=== PATIENT | male | born 1960 | race Caucasian/White ===

== ENCOUNTER 2019-04-28 10:03 | Inpatient (IN) ==
--- NOTE | 2019-04-28 10:10 | PROVIDER DOCUMENTATION ---
HPI-General Adult - General Stated Complaint: ABSCESS Time Seen by Provider: 04/28/19 10:09 Source: patient Allergies/Adverse Reactions: Patient Allergies Allergy/AdvReac Type Severity Reaction Status Date / Time aprepitant [From Emend] Allergy Unknown Verified 04/28/19 10:29 fosaprepitant [From Emend] Allergy Unknown Verified 04/28/19 10:29 Home Medications: Home Medication List Medication Instructions Recorded Confirmed Last Taken Type Acetaminophen [Tylenol] 2 tab PO BID 04/28/19 04/28/19 04/28/19 08:00 History 650 mg Atorvastatin Calcium 10 mg PO HS 04/28/19 04/28/19 04/27/19 20:00 History 10 mg Buspirone [Buspar] 20 mg PO TID 04/28/19 04/28/19 04/28/19 08:00 History 20 mg Clonazepam [Klonopin] 0.5 mg PO TID 04/28/19 04/28/19 04/28/19 08:00 History 0.5 mg Docusate Sodium [Colace] 100 mg PO BID 04/28/19 04/28/19 04/28/19 08:00 History 100 mg Escitalopram Oxalate 20 mg PO DAILY 04/28/19 04/28/19 04/28/19 08:00 History 20 mg Famotidine 20 mg PO BID 04/28/19 04/28/19 04/28/19 08:00 History 20 mg Furosemide [Lasix] 1 tab PO DAILY PRN 04/28/19 04/28/19 Unknown History Hydrocodone/Acetaminophen [[place] 1 ea PO Q6H PRN PRN 04/28/19 04/28/19 04/28/19 08:00 History 7.5-325 Tablet] 1 tab Levocetirizine Dihydrochloride 5 mg PO DAILY 04/28/19 04/28/19 04/28/19 09:00 History [Xyzal] 5 mg Meloxicam 7.5 mg PO DAILY 04/28/19 04/28/19 04/28/19 09:00 History 7.5 mg Promethazine HCl 12.5 mg PO Q4H PRN PRN 04/28/19 04/28/19 04/08/19 09:13 History 1 tab Quetiapine Fumarate 2 tab PO HS 04/28/19 04/28/1904/27/19 20:00 History 100 mg Quetiapine Fumarate 25 mg PO DAILY 04/28/19 04/28/19 04/28/19 08:00 History 25 mg Sulfamethoxazole/Trimethoprim 1 tab PO Q12HR 04/28/19 04/28/19 04/28/19 08:00 History [Bactrim Ds Tablet] 1 tab Tizanidine HCl 2 mg PO Q6H PRN PRN 04/28/19 04/28/19 04/28/19 08:00 History 2 mg Triamcinolone 0.1% Cr [Kenalog 15 gm TOP BID PRN 04/28/19 04/28/19 04/28/19 09:00 History 0.1% Cream] Valproic Acid [Depakene Liquid] 250 mg PO 4XDAY 04/28/19 04/28/19 04/28/19 08:00 History 250 mg - History of Present Illness -Gen Adult Nature of Presenting Problems: Pt. is 58 yom that presents with c/o abscess to back. He is brought in by family from [facility]. The nurse at [facility] wanted the area biopsied and sent to pathology. I called and spoke with her and let her know we do not do biopsies in the ED. She said that was fine. The patient has no other complaints. Location of Pain/Injury: reports: back. denies: none, head, face, mouth, neck, chest, upper extremity, hand(s), abdomen, pelvis, genitalia, lower extremity, feet, upper body, lower body, generalized, other Pain Radiation: reports: no radiation. denies: arm(s), back, buttocks, chest, epigastric, feet, groin, jaw, flank (L), legs (lower), LLQ, LUQ, neck, periumbilical, flank (R), RLQ, RUQ, shoulder(s), scapula, scrotal, sternal notch, suprapubic, legs (upper), urethral, vaginal, other Quality of Pain: reports: aching. denies: burning, pressure, tightness Severity: reports: moderate. denies: mild, severe Onset/Duration: reports: unsure, gradual Timing: reports: still present. denies: improving, intermittent, getting worse Context/Activities at Onset: reports: none. denies: light activity, moderate activity, vigorous activity, recent emotional stress, recent physical stress, recent trauma history, possible bad food, cold exposure, eating, out of country travel, rest, sleep, sexual activity, other Modifying Factors: improves with: nothing Associated Symptoms: reports: other (Abscess to mid back). denies: denies symptoms, anxiety, arm pain, back/neck pain, chest pain, constipation, cough, diaphoresis, diarrhea, dizziness, EENT symptoms, fatigue, fever/chills, genitourinary problems, headaches, heartburn, joint pain, loss of appetite, malaise, muscle aches, sinus congestion/drainage, nausea, rash, seizure, shortness of breath, sensory/motor loss, pain with inspiration, swelling/mass in abdomen, syncope, vomiting, weakness, trouble walking Similar Symptoms Previously?: Yes Recently seen or treated by another doctor?: No Review of Systems - Adult - REVIEW OF SYSTEMS - ADULT Constitutional: reports: no symptoms reported Eyes: reports: no symptoms reported Ears, Nose, Mouth & Throat: reports: no symptoms reported Cardiovascular: reports: no symptoms reported Respiratory: reports: no symptoms reported Gastrointestinal: reports: no symptoms reported Genitourinary: reports: no symptoms reported Musculoskeletal: reports: no symptoms reported Integumentary: reports: see HPI, skin sores/ulcer. denies: hair loss, rash, skin thickening Neurological: reports: no symptoms reported Psychiatric: reports: no symptoms reported Past History - Adult - PAST MEDICAL HISTORY-ADULT Review of Records: reports: Old Records Reviewed, Nursing Assessment Review, Medications Reviewed, Social history reviewed & non-contributory. - IMMUNIZATION STATUS Childhood Immunizations: See Nurse Assessment Flu Vaccine: See Nurse Assessment - FAMILY HISTORY Family History: reviewed, not pertinent - SOCIAL HISTORY Smoking: denies Physical Exam-General - PHYSICAL EXAM-ADULT Initial Vital Signs Reviewed: Yes - CONSTITUTIONAL General Appearance: alert, mild distress. negative: anxious, obtunded, combative - EYES Eyes: PERRL/EOMI, pink conjunctivae - HEAD, EARS, NOSE, MOUTH & THROAT HENMT: normocephalic/atraumatic, moist mucous membranes - NECK Neck: non-tender, full range of motion, supple, normal inspection - RESPIRATORY Respiratory: lungs clear, normal breath sounds - CARDIOVASCULAR Cardiovascular: normal peripheral pulses, regular rate, rhythm, no edema - GASTROINTESTINAL (ABDOMEN) Abdominal Exam: normal bowel sounds, non tender, soft - LYMPHATIC Lymphatic: no adenopathy - MUSCULOSKELETAL Back Exam: normal inspection, no CVA tenderness Extremity: negative: deformity, erythema, inflammation, swelling, tenderness Peripheral Pulses: radial (R): 2+, radial (L): 2+ - SKIN Integumentary: embolic lesions (There is a large abscess to the mid back. It is approx. 4 inches in diameter with the center being fluctuant and the surrounding area erythemic and indurated.), erythema (There is a large abscess to the mid back. It is approx. 4 inches in diameter with the center being fluctuant and the surrounding area erythemic and indurated.), swelling (There is a large abscess to the mid back. It is approx. 4 inches in diameter with the center being fluctuant and the surrounding area erythemic and indurated.), tenderness (There is a large abscess to the mid back. It is approx. 4 inches in diameter with the center being fluctuant and the surrounding area erythemic and indurated.). negative: cyanosis, decubitus, jaundice, mottled - NEUROLOGIC Neurologic: grossly normal, no motor/sensory deficits - PSYCHIATRIC Psych/Mental Status: normal mood/affect, normal thought content, normal thought process, oriented x 3. negative: anxious, paranoid, tearful Progress - PLAN OF CARE/RESULTS Progress/Plan/Lab Results: Laboratory Tests 04/28/19 04/28/19 04/28/19 10:51 10:51 11:55 WBC 7.68 RBC 3.22 L Hgb 10.0 L Hct 30.4 L MCV 94.4 MCH 31.1 H MCHC 32.9 L RDW Std Deviation 12.7 Plt Count 157 MPV 9.1 Neut % (Auto) 58.9 Lymph % (Auto) 12.4 L Nelson % (Auto) 9.5 H Eos % (Auto) 18.9 H Baso % (Auto) 0.3 Neut # (Auto) 4.53 Lymph # (Auto) 0.95 L Nelson # (Auto) 0.73 H Eos # (Auto) 1.45 H Baso # (Auto) 0.02 Sodium 133 L Potassium 5.4 H Chloride 96 L Carbon Dioxide 20 L Anion Gap 17 BUN 54 H Creatinine 6.1 H BUN/Creatinine Ratio 9 Glucose 97 Calculated Osmolality 281 Calcium 9.4 Total Bilirubin 0.21 AST 7 L ALT < 5 L Alkaline Phosphatase 67 Total Protein 7.0 Albumin 4.0 Globulin 3.0 Albumin/Globulin Ratio 1.3 Plasma Lactate Urine Source CATH Urine Color YELLOW Urine Turbidity CLEAR Urine pH 5.5 Ur Specific [place] 1.020 Urine Protein NEGATIVE Ur Glucose (Stick) NEGATIVE Ur Ketones (Stick) NEGATIVE Urine Blood NEGATIVE Urine Nitrite NEGATIVE Urine Bilirubin NEGATIVE Urobilinogen Dipstick NORMAL Urine Leukocytes NEGATIVE Urine WBC (Auto) 10-20 A Urine RBC (Auto) <10 U Epithel Cells (Auto) <10 Urine Bacteria (Auto) 1+ 04/28/19 12:26 WBC RBC Hgb Hct MCV MCH MCHC RDW Std Deviation Plt Count MPV Neut % (Auto) Lymph % (Auto) Nelson % (Auto) Eos % (Auto) Baso % (Auto) Neut # (Auto) Lymph # (Auto) Nelson # (Auto) Eos # (Auto) Baso # (Auto) Sodium Potassium Chloride Carbon Dioxide Anion Gap BUN Creatinine BUN/Creatinine Ratio Glucose Calculated Osmolality Calcium Total Bilirubin AST ALT Alkaline Phosphatase Total Protein Albumin Globulin Albumin/Globulin Ratio Plasma Lactate 0.7 Urine Source Urine Color Urine Turbidity Urine pH Ur Specific [place] Urine Protein Ur Glucose (Stick) Ur Ketones (Stick) Urine Blood Urine Nitrite Urine Bilirubin Urobilinogen Dipstick Urine Leukocytes Urine WBC (Auto) Urine RBC (Auto) U Epithel Cells (Auto) Urine Bacteria (Auto) Discussed results and plan of care with patient. Patient agrees with plan and verbalizes understanding. Result Diagrams: 04/28/19 10:51 04/28/19 10:51 - CONSULTS/PCP/HOSPITALIST Notification #1 *Consult/PCP/Hospitalist*: Negin Fernandez Time Discussed: 14:09 Reason/Comments: Admission Consult Disposition: Will see in ED, Admit Procedures - INCISION & DRAINAGE Site: Back Abscess Type: Subcutaneous Prepped with: Betadine Anesthetic: 1%, Lidocaine/Xylocaine Volume of Anesthetic (ml's): 3 Blade Size: 11 Packing placed?: Yes Sterile Dressing Applied?: Yes Drainage: Large Amount Departure - Departure Date of Disposition Decision: 04/28/19 Time of Disposition Decision: 12:55 DIAGNOSIS: Abscess Acute on chronic renal failure Qualifiers: Acute renal failure type: unspecified Chronic kidney disease stage: unspecified stage Qualified Code(s): N17.9 - Acute kidney failure, unspecified Anemia Qualifiers: Anemia type: unspecified type Qualified Code(s): D64.9 - Anemia, unspecified Disposition: ADMITTED INPATIENT 09 Certified Medical Emergency: Emergent Condition: Stable Referrals and Follow-Ups: Oscar Rhodes MD [Primary Care Provider] - - Critical Care Note This patient required my direct & personal management of CC.: No Attestation - Physician/ [place] Attestation Patient care was provided by Advanced Practice Provider:: Yes Advanced Practice Provider:: Elia Iqbal Advanced Practice Provider documentation review:: The Mid-level provider documentation, treatment plan and medical decision making was reviewed by the physician who agrees with all treatment and medical decision making by the MLP. The physician spent face to face time with patient:: No Advanced Practice Provider documentation review:: Supervising physician onsite and consulted in the evaluation and care of this patient. The physician did not have a face to face encounter with the patient.
[2019-04-28] MEDS ORDERED: XYLOCAINE-MPF 1% INJ ONE (10:27)
[2019-04-28] MEDS ORDERED: NS 1,000 ML IV ONE ×2 (10:27→15:28)
[2019-04-28 11:31] LABS: BASO# 0.02 X1000 (0.0-0.2); BASO% 0.3 % (0.0-0.8); EOS# 1.45 X1000 (0.0-0.7); EOS% 18.9 % (0.0-10.0); HEMATOCRIT 30.4 % (42.0-52.0); LYMPH# 0.95 X1000 (1.2-3.4); LYMPH% 12.4 % (20.5-51.1); MCH 31.1 PG (27-31); MCHC 32.9 g/dL (33-37); MCV 94.4 FL (81-99); MONO# 0.73 X1000 (0.11-0.59); MONO% 9.5 % (1.7-9.3); MPV 9.1 FL (7.4-10.4); NEUT# 4.53 X1000 (1.4-6.5); NEUT% 58.9 % (42.2-75.2); PLT 157 X1000 (130-400); RBC 3.22 XMIL (4.7-6.1); RDW 12.7 % (11.5-14.5); WBC 7.68 X1000 (4.8-10.8)
[2019-04-28] MEDS ORDERED: VANCOMYCIN 1 GM/NS 1 GM/250 ML IVPB IV ONE (11:35)
[2019-04-28 11:58] LABS: URINE SOURCE CATH
[2019-04-28 12:17] LABS: AGAP 17; ALB/GLOB RATIO 1.3; ALKALINE PHOSPHATASE 67 U/L (32-122); BUN 54 mg/dL (8-22); CALCIUM 9.4 mg/dL (8.8-10.2); CHLORIDE 96 mmol/L (98-107); COSMO 281; CREATININE 6.1 mg/dL (0.7-1.2); GLUCOSE 97 mg/dL (70-104); GOT 7 U/L (10-34); GPT < 5 U/L (10-44); POTASSIUM 5.4 mmol/L (3.5-5.1); SODIUM 133 mmol/L (136-145); TCO2 20 mmol/L (25-35); TOTAL BILIRUBIN 0.21 mg/dL (0.20-1.00)
[2019-04-28] MEDS ORDERED: MORPHINE IV ONE (12:21)
[2019-04-28 12:26] LABS: BILIRUBIN URINE NEGATIVE (NEGATIVE); BLOOD URINE NEGATIVE (NEGATIVE); COLOR YELLOW; GLUCOSE URINE NEGATIVE (NEGATIVE); KETONE URINE NEGATIVE (NEGATIVE); LEUKOCYTES URINE NEGATIVE (NEGATIVE); NITRITE URINE NEGATIVE (NEGATIVE); PH URINE 5.5; PROTEIN URINE NEGATIVE (NEGATIVE); TURBIDITY URINE CLEAR (CLEAR); UR EPITHELIAL CELLS <10 /HPF (<10); URINE BACTERIA 1+ /HPF; URINE RBC <10 /HPF (<10); UROBILINOGEN URINE NORMAL (NORMAL)
--- NOTE | 2019-04-28 14:05 | EKG Report ---
Test Performed on : 04/28/2019 1:52:33 PM Test Reason : elevated K Blood Pressure : / mmHG Vent. Rate : 060 BPM Atrial Rate : 060 BPM P-R Int : 238 ms QRS Dur : 104 ms QT Int : 442 ms P-R-T Axes : 049 -64 069 degrees QTc Int : 442 ms Sinus rhythm. with 1st degree AV block. Left axis deviation Abnormal ECG No previous ECGs available Unconfirmed Result
[2019-04-28] MEDS ORDERED: NS 1,000 ML ONE (14:49)
--- NOTE | 2019-04-28 15:36 | ED EKG INTERP ---
This chart was entered by Cathy Cabrera Scribe, acting as scribe for Valeriy Mcclendon MD. EKG Interpretation - EKG Time of EKG reading by physician:: 14:41 EKG Read and Signed by:: Valeriy Mcclendon EKG Interpretation (*Must complete 3 of following elements*): Abnormal Rate: 60 Rhythm: sinus rhythm with 1st degree AV block [place]: left Comments: early transition; Attestation - Physician/ [place] Attestation Patient care was provided by Advanced Practice Provider:: Yes Advanced Practice Provider:: Elia Iqbal Advanced Practice Provider documentation review:: The Mid-level provider documentation, treatment plan and medical decision making was reviewed by the physician who agrees with all treatment and medical decision making by the MLP. The physician spent face to face time with patient:: No Advanced Practice Provider documentation review:: Supervising physician onsite and consulted in the evaluation and care of this patient. The physician did not have a face to face encounter with the patient. This chart was documented by the indicated scribe, (Cathy Cabrera Scribe) and accurately reflects the services I performed and decisions made by Hakan quinones Kent A., MD, as attested by the provider's signature.
[2019-04-28] MEDS ORDERED: MAXIPIME 1 GM in NS 50 ML IV ONE (15:50)
--- NOTE | 2019-04-28 16:05 | Diag Imaging Result Doc PS360 ---
EXAM: CHEST-1 VIEW HISTORY: dyspnea TECHNIQUE: Single view COMPARISON: None. FINDINGS: The patient is rotated to the right. There is a left-sided portacatheter. No cardiomegaly. There is basilar atelectasis. There may be a small right pleural effusion. No consolidation. Mild vascular prominence. IMPRESSION: Mild central vascular prominence. Follow-up PA and lateral recommended Electronically signed by Tony Mora 04/28/2019 4:03 PM
[2019-04-28 16:13] LABS: ALLEN TEST YES; BLOOD TYPE ARTERIAL; HCO3-(ACT) 20.1 mmoll (20.0-26.0); METHB 1.1 % (0.0-1.5); O2(CT) 11.7 mL/dL (15.0-23.0); PCO2(98.6) 32 mmHg (35-45); SAMPLE BLOOD; SAO2 89.4 % (95.0-100.0); THB 9.6 g/dL (11.5-17.4); pH(98.6) 7.37 (7.35-7.45)
[2019-04-28 16:14] LABS: MODALITY CANNULA
[2019-04-28 16:17] LABS: UR CREAT RANDOM 119.5 mg/dL (14-26); UR PROT RANDOM 13.5 mg/dL
[2019-04-28 16:17] LABS: PO2(98.6) 48 mmHg (60-100)
[2019-04-28 16:18] LABS: O2HB 86.3 % (95.0-99.0)
[2019-04-28] MEDS ORDERED: LEVOPHED 8 MG in D5 1/2 NS 250 ML IV SCH (16:45)
--- NOTE | 2019-04-28 16:54 | Diag Imaging Result Doc PS360 ---
EXAM: US RENAL 2 (RETROPER) COMPLETE HISTORY: ivonne TECHNIQUE: Renal ultrasound COMPARISON: None. FINDINGS: The right kidney measures 8.3 x 5.4 x 4.3 cm. There is a 1.3 cm lower pole cyst. There is cortical thinning. Mild increased renal echotexture. The left kidney measures 10.8 x 5.3 x 5.0 cm. No cortical thinning. The renal pelvis and calyces are dilated. There appears to be an upper pole cyst measuring 3.7 cm. The urinary bladder is overly distended measuring over 16 cm in length. IMPRESSION: [place] distended urinary bladder with dilatation of the left collecting system. Electronically signed by Tony Mora 04/28/2019 4:52 PM
[2019-04-28] MEDS: NS 1,000 ML IV SCH (16:59)
[2019-04-28] MEDS: DUONEB (A & A) INH SCH ×3 (17:00→23:24)
[2019-04-28] MEDS ORDERED: ZOFRAN IV PRN (17:05)
[2019-04-28] MEDS: MORPHINE IV PRN (18:03)
--- NOTE | 2019-04-28 18:20 | Diag Imaging Result Doc PS360 ---
EXAM: CT ABDOMEN/PELVIS W/O CONTRAST HISTORY: possible nephrolithasis TECHNIQUE: CT abdomen and pelvis without contrast COMPARISON: None. FINDINGS: There is bronchial wall thickening and bronchiectasis in the lower lungs with basilar infiltrates. The gallbladder is contracted. No focal hepatic normality identified on this noncontrasted exam. No splenomegaly. No inflammation about the pancreas. Normal adrenal glands. No renal stones. There is mild left hydronephrosis. There is thickening to the wall of urinary bladder. There is a Sanchez catheter within the bladder. No aortic aneurysm. There is stool throughout the colon. No inflammation about the cecum. No abscess. Mild scoliosis with prominent degenerative changes in the lower lumbar spine. IMPRESSION: 1.Left hydronephrosis, but no renal stones 2.Thickening to the wall of urinary bladder which may indicate cystitis 3.Moderate constipation 4.Basilar bronchiectasis, bronchial wall thickening, and likely scarring This exam was performed using automated exposure control, adjustment of mA or kV according to patient size, and/or use of iterative reconstruction technique. Electronically signed by Tony Mora 04/28/2019 6:18 PM
[2019-04-28] MEDS: DEPAKENE LIQUID PO SCH ×2 (19:21→23:23)
--- NOTE | 2019-04-28 21:26 | HISTORY AND PHYSICAL ---
CHIEF COMPLAINT: "I have a spot on my back you need to look at." HISTORY OF PRESENT ILLNESS: This is a 58-year-old gentleman with a history of oropharynx cancer, dementia, hyperlipidemia, and hypertension. He presents to the emergency room from [facility]. According to the chart, [facility] called and spoke to one of the providers in the emergency room, stated that the patient had a spot on his back that they wanted to be biopsied and sent to Pathology. On exam, the patient was found to have an abscess. He underwent an I D in the emergency room, and cultures were obtained and sent to lab. According to the chart, the area on his back is approximately 4 inches in diameter with surrounding erythema and induration. After I D, it was flushed, packed. PAST MEDICAL HISTORY: Dementia, hyperlipidemia, hypertension, oropharynx cancer, bipolar disorder, and depression. PAST SURGICAL HISTORY: Right knee arthroscope and a neck biopsy. SOCIAL HISTORY: He denies alcohol, tobacco, or illicit drug use. He is a resident at an [facility]. ALLERGIES: Reportedly Emend with unknown reaction. HOME MEDICATIONS: A list will be obtained by the nursing staff and once verified, reviewed and restarted as appropriate. REVIEW OF SYSTEMS: Obtained from the patient, with pertinent positives in the HPI. He denied any syncope, dizziness, any chest pain or palpitations, shortness of breath, cough, fever, chills, any nausea, vomiting, diarrhea, any black or bloody vomitus or stools, any hematuria, dysuria, frequency, urgency. PHYSICAL EXAMINATION: GENERAL: This is a very pleasant, 58-year-old gentleman, who is sitting up in the bed, eating, in no distress. VITAL SIGNS: Blood pressure is 114/60, with a heart rate of 61. Respirations are 18. Temperature is 97.8 degrees, with room air saturations 97 to 100. HEENT: Head is normocephalic, atraumatic. Mucous membranes are moist. NECK: Supple with trachea midline. CARDIOVASCULAR: Regular rate and rhythm. S1 and S2 appreciated. He has no lower extremity edema. Peripheral pulses are palpable x4 extremities. PULMONARY: Breath sounds are clear with no increased work of breathing noted. Chest rises and falls symmetric to respiration. GASTROINTESTINAL: Abdomen is soft, nontender, nondistended. Bowel sounds in all 4 quadrants. NEUROLOGIC: He is alert and oriented. SKIN: Warm and dry. He does have an area to his mid back that is status post I D per the ER provider. Dressing is intact. There is some erythema noted. LABORATORY AND DIAGNOSTIC DATA: WBC is 7.6, with hemoglobin 10, hematocrit 30.4, and platelets 157,000. Sodium 133, potassium 5.4, BUN 54, creatinine 6.1, with a glucose of 97. Urinalysis is essentially negative. Chest x-ray reveals mild central vascular prominence. ASSESSMENT AND PLAN: 1. Abscess to the back. Urine culture was obtained in the emergency room. He was given vancomycin. We will change him to Zyvox due to his renal function, add cefepime and Kefzol. Further antibiotics will be culture driven. 2. Acute kidney injury in the setting of chronic kidney disease. He did have creatinine on 11/01/2018 and 12/17/2018, of 1.3 and 1.8 respective. We will obtain urine electrolytes, a renal ultrasound. Consult Dr. Mcgovern. We will hold any renal toxic medications, check a daily renal profile. 3. Hypoxemia. We will continue supplemental oxygen. 4. Hyperkalemia. We will give a dose of Veltassa and trend labs. We will continue with supplemental oxygen. 5. For deep vein thrombosis prophylaxis, we will use heparin. Patient was examined with Dr. Rivera and plan was discussed. Further treatments pending hospital course. Dictated by DARIA Oliva for Paula Rivera MD cc: DARIA Oliva MD I performed a face to face encounter on the patient. I reviewed all labs and imaging on the patient. I agree with the H&P as dictated. [facility]
[2019-04-28] MEDS: HEPARIN SUBQ SCH (23:30)
[2019-04-29] MEDS: MORPHINE IV PRN ×4 (01:13→17:58)
[2019-04-29] MEDS: DUONEB (A & A) INH SCH ×6 (03:32→23:02)
[2019-04-29] MEDS: KLONOPIN PO PRN ×2 (04:28→13:04)
[2019-04-29 05:34] LABS: BASO# 0.03 X1000 (0.0-0.2); BASO% 0.5 % (0.0-0.8); EOS% 14.5 % (0.0-10.0); HEMATOCRIT 32.3 % (42.0-52.0); HEMOGLOBIN 10.4 g/dL (14.0-18.0); LYMPH# 0.47 X1000 (1.2-3.4); LYMPH% 8.5 % (20.5-51.1); MCH 30.5 PG (27-31); MCHC 32.2 g/dL (33-37); MCV 94.7 FL (81-99); MONO# 0.45 X1000 (0.11-0.59); MONO% 8.1 % (1.7-9.3); NEUT# 3.78 X1000 (1.4-6.5); NEUT% 68.4 % (42.2-75.2); PLT 134 X1000 (130-400); RBC 3.41 XMIL (4.7-6.1); RDW 12.6 % (11.5-14.5); WBC 5.53 X1000 (4.8-10.8)
[2019-04-29] MEDS ORDERED: ZYVOX 600 MG/D5W 600 MG/300 ML IVPB IV SCH (07:00)
--- NOTE | 2019-04-29 07:36 | INFECTIOUS DISEASE CONSULT REP ---
DATE: 04/29/2019 CONCLUSION: The patient is status post incision and drainage of a back abscess. On Gram stain, gram-positive cocci were seen from the pus. The patient also appears to have urinary tract infection. RECOMMENDATIONS: I agree with using Zyvox to treat the patient's abscess pending culture results. I have switched the Zyvox from IV to p.o. I have discontinued Ancef. I am going to start the patient on cefepime because it appears he has a urinary tract infection and he has gone into renal failure and possibly some of the renal failure could be due to the patient's urinary tract infection. Some of the side effects of Zyvox and cefepime including rash, diarrhea, hematotoxicity, and neurotoxicity were explained to patient who agrees with treatment. DISCUSSION: The patient tells me approximately 2 weeks ago he developed an abscess on his back. It got bigger and more painful. He came to the emergency room and he was admitted to the hospital. While in the emergency room, the patient had incision and drainage of the abscess. The patient's laboratory studies thus far show a CBC with a white count of 5530, hemoglobin 10.4, and platelet count 134,000. Creatinine is 6.1. GFR is 9. Liver function studies are normal. Urinalysis showed white cells and bacteria. A back abscess Gram stain showed gram-positive cocci. Blood and urine cultures are pending. PAST MEDICAL HISTORY/REVIEW OF SYSTEMS: Eyes and ears: The patient says he sees and hears okay. Neck: His neck he says is stiff and he is in a position where his chin touches his chest. Respiratory: He is not coughing or short of breath currently. Cardiac: He is not having chest pain or palpitations. GI: He is not having nausea, vomiting or diarrhea. : He is not having dysuria or flank pain. Neurologic: The patient can walk only with the aid of a walker. He states that he has a large dorsal kyphosis because he cannot straighten his spine. Integument: No rash. PAST MEDICAL HISTORY: Positive for dementia, hyperlipidemia, hypertension, oropharyngeal cancer, bipolar disorder and depression. PAST SURGICAL HISTORY: Patient has had a right knee arthroscopy and a neck biopsy. SOCIAL HISTORY: The patient is living in an extended care facility now. He told me he stopped smoking cigarettes 6 months ago. He does not drink alcoholic beverages or use illicit drugs. ALLERGIES: The patient is allergic to the Emend. HOME MEDICATIONS: Include atorvastatin, buspirone, Klonopin, Colace, escitalopram, famotidine, furosemide, hydrocodone, Xyzal, meloxicam, promethazine, Quetiapine, Bactrim and Depakene. PHYSICAL EXAMINATION: Vital Signs: Temperature is 98.1 degrees, pulse 118, respirations 18, blood pressure is 146/77. Patient is 6 feet 5 inches tall, weighs 202 pounds. General: This is an ill-appearing middle-aged male. He is in no acute distress. Head/eyes/ears/nose/throat: He can hear my spoken words and see near objects. I did not see any white coating on his tongue. Neck: The patient's neck is bent forward and he said he cannot get it to straighten out. Lungs: Clear to auscultation. Cardiovascular: Heart rate is regular. Back: The patient has a large dorsal kyphosis. He has a large erythematous mass which has a black center. This has been opened and there is some pus that is coming out from the back abscess. Neurologic: The patient is awake. He can move his extremities. There is no tremor. As I mentioned above, he can walk, but only with the aid of a walker. He does not have any tremor. His memory regarding his medical history is decreased. Integument: No rash noted. Thank you for the consult. cc: Jenaro De Dios MD [facility]
[2019-04-29 08:43] LABS: CALCIUM 9.4 mg/dL (8.8-10.2); CREATININE 4.7 mg/dL (0.7-1.2); PHOSPHORUS 3.7 mg/dL (2.7-4.5); POTASSIUM 5.5 mmol/L (3.5-5.1)
[2019-04-29] MEDS ORDERED: KEFZOL 1 GM/D5W 1 GM/50 ML IVPB IV SCH (09:00)
[2019-04-29] MEDS ORDERED: KLONOPIN PO SCH (09:00)
[2019-04-29] MEDS: DEPAKENE LIQUID PO SCH ×4 (12:09→21:11)
[2019-04-29] MEDS: COLACE PO SCH ×2 (12:10→21:11)
[2019-04-29] MEDS: HEPARIN SUBQ SCH ×2 (12:10→21:11)
[2019-04-29] MEDS: DULCOLAX PR SCH (12:11)
[2019-04-29] MEDS: MIRALAX PO SCH ×2 (12:11→21:11)
[2019-04-29] MEDS ORDERED: ALBUTEROL 0.5% INH CONC FOR HYPERKALEMIA INH ONE (12:11)
[2019-04-29] MEDS ORDERED: LOKELMA POWDER PACKET PO ONE (12:12)
[2019-04-29] MEDS ORDERED: MIRALAX PO SCH (12:15)
[2019-04-29] MEDS: MAXIPIME 1 GM in NS 50 ML IV SCH (12:30)
--- NOTE | 2019-04-29 12:34 | PROGRESS NOTE ---
DATE: 04/29/2019 SUBJECTIVE: The patient is resting comfortably in bed. He states that the pain in his back is a little bit better since the I&D yesterday. He has not had a bowel movement in several days. OBJECTIVE: Vital Signs: Temperature 98.7 degrees, blood pressure 127/66, heart rate 98, respirations 22, O2 saturations 98% on 2 L nasal cannula. Intake 1.1 L, output 5.9 L. General: This is a chronically ill-appearing elderly male lying in bed in no acute distress. Neck: The patient has contracture involving the neck. Heart: S1, S2 normal. Regular rate and rhythm. Lungs: Equal air entry bilaterally. No wheezing. No rales. No rhonchi. Abdomen: Positive bowel sounds. Soft, nontender, nondistended. Extremities: No edema, no cyanosis, no calf tenderness. Neurologic: The patient is alert and oriented x4. LABS: White blood cell count 5.5, hemoglobin 10, hematocrit 32, platelets 134,000. Sodium 141, potassium 5.5, chloride 107, CO2 19, BUN 46, creatinine 4.7, glucose 117, albumin 4. ASSESSMENT AND PLAN: 1. Back abscess status post incision and drainage. The patient's antibiotics have been adjusted by Dr. De Dios. We will follow up on the wound culture results. 2. Urinary tract infection. Continue with antibiotic. 3. Acute kidney injury. Multifactorial. The patient has a FENa of 2. He has been on Bactrim since April 23 for his back infection. Also, the patient was noted to have urinary retention on the renal ultrasound. The patient's urine output has improved as well as his BUN and creatinine. We will continue with IV fluids and monitor the patient's response to the current therapy. Nephrology has been consulted. 4. Hyperkalemia. We will treat the potassium and monitor closely. 5. Metabolic acidosis. Continue to monitor closely. 6. History of oropharyngeal cancer. The patient is followed at [facility]. 7. Constipation. The patient has been started on laxative therapy. 8. Bipolar disorder. Continue on valproic acid and BuSpar. 9. Deep vein thrombosis prophylaxis. Continue on heparin. 10. We will consult Physical Therapy. cc: Paula Rivera MD [facility]
[2019-04-29] MEDS: NS 1,000 ML IV SCH ×2 (12:36→22:11)
[2019-04-29] MEDS ORDERED: ZANAFLEX PO PRN (13:28)
--- NOTE | 2019-04-29 13:52 | NEPHROLOGY CONSULTATION ---
DATE: 04/29/2019 REASON FOR CONSULTATION: Acute kidney injury. HISTORY OF PRESENT ILLNESS: Mr. Sheehan is a complicated 58-year-old man with a history of oropharyngeal cancer for which he has been receiving treatment in the past. He also has dementia, physical debilitation, hyperlipidemia, hypertension. He received much of his care in [place] but has recently come to [facility]. There was interest in restarting his chemotherapy but there was a lesion on his back that was concerning for metastasis. He underwent biopsy but found abscess only. He was treated with Bactrim as an outpatient. His back pain became more pronounced and ultimately came to the emergency room for evaluation of this problem. His creatinine was 1.8 back in December though we do not have any intervening data. His evaluation in the emergency room found blood pressure of 71/50 with heart rate 69, respirations of 18. Labs demonstrated hyperkalemia and acute kidney injury. CT abdomen demonstrated left-sided hydronephrosis and urinary retention. He was treated with volume resuscitation and Sanchez catheter which resulted in prompt large volume diuresis. He had 6 L of urine by 8 a.m. today. Sanchez bag has 2 L in it at present. PAST MEDICAL HISTORY: As above. HOME MEDICATIONS: Include atorvastatin, Bactrim, buspirone, clonazepam, escitalopram, famotidine, furosemide, hydrocodone, Xyzal, meloxicam, quetiapine, tizanidine, valproate, docusate, acetaminophen, promethazine. ALLERGIES: Aprepitant and fosaprepitant. SOCIAL HISTORY: As above. FAMILY HISTORY: Noncontributory otherwise. REVIEW OF SYSTEMS: Noncontributory otherwise. PHYSICAL EXAMINATION: Vital Signs: Blood pressure 127/66, heart rate 98, respirations 22. Afebrile. General: He is a frail middle-aged man with kyphosis. No acute distress. Skin: Warm and dry. Conjunctivae are not examined. Oropharynx not examined. Neck: Supple. Neck veins are not visible. Trachea is midline. Heart: PMI nondisplaced. Regular rate and rhythm. No murmurs, rubs, gallops. Lungs: Have equal breath sounds. No crackles or wheezes. Abdomen: Soft, nontender. Bowel sounds present. Extremities: Perhaps 1+ edema. No clubbing or cyanosis. IMPRESSION: Acute kidney injury complicated by hyperkalemia and metabolic acidosis. Excellent urine output with Sanchez catheter placement. Likely multifactorial with obstruction and Bactrim overlying moderate chronic kidney disease stage 3B. His urine had no protein or blood. Creatinine is improved. Continue current treatment with IV fluids, Sanchez catheter. Observe his labs without further intervention. Will follow. cc: Daniel Mcgovern MD
[2019-04-29] MEDS: ZYVOX PO SCH (17:58)
[2019-04-29] MEDS: BUSPAR PO SCH (17:58)
[2019-04-29] MEDS: SEROQUEL PO SCH (21:11)
[2019-04-29] MEDS: LACTULOSE PO SCH (21:11)
[2019-04-30] MEDS: DUONEB (A & A) INH SCH ×6 (03:23→23:25)
[2019-04-30 05:32] LABS: BASO# 0.03 X1000 (0.0-0.2); BASO% 0.8 % (0.0-0.8); EOS% 16.3 % (0.0-10.0); HEMATOCRIT 29.4 % (42.0-52.0); HEMOGLOBIN 9.2 g/dL (14.0-18.0); LYMPH# 0.47 X1000 (1.2-3.4); LYMPH% 12.8 % (20.5-51.1); MCHC 31.3 g/dL (33-37); MCV 95.8 FL (81-99); MONO# 0.41 X1000 (0.11-0.59); MONO% 11.1 % (1.7-9.3); MPV 9.1 FL (7.4-10.4); NEUT# 2.17 X1000 (1.4-6.5); PLT 143 X1000 (130-400); RBC 3.07 XMIL (4.7-6.1); RDW 12.8 % (11.5-14.5); WBC 3.68 X1000 (4.8-10.8)
[2019-04-30] MEDS: NS 1,000 ML IV SCH ×2 (05:49→10:10)
[2019-04-30] MEDS: ZYVOX PO SCH ×2 (05:50→18:04)
[2019-04-30 05:53] LABS: ALBUMIN 3.2 g/dL (3.5-5.0); CALCIUM 9.4 mg/dL (8.8-10.2); CREATININE 3.4 mg/dL (0.7-1.2); PHOSPHORUS 1.9 mg/dL (2.7-4.5); POTASSIUM 5.2 mmol/L (3.5-5.1)
[2019-04-30] MEDS: MORPHINE IV PRN ×4 (06:05→20:15)
[2019-04-30] MEDS ORDERED: SODIUM PHOSPHATE 40 MMOL in NS 250 ML IV ONE (08:28)
--- NOTE | 2019-04-30 09:20 | GENERAL SURGERY CONSULTATION ---
DATE: 04/30/2019 REQUESTING PHYSICIAN: The hospitalist. REASON FOR CONSULTATION: Back abscess. HISTORY OF PRESENT ILLNESS: A 58-year-old gentleman with a history of oropharyngeal cancer, dementia, hyperlipidemia, hypertension, who presented from [facility] for this abscess area. It was drained in the emergency department and cultures were sent. He is at this point, doing okay. He did have the area drained. I removed the packing. There does not seem to be any additional purulence noted. I was asked to weigh an opinion. PAST MEDICAL HISTORY: Dementia, hyperlipidemia, hypertension, oropharynx cancer, bipolar disorder, depression. PAST SURGICAL HISTORY: Includes right knee surgery and neck biopsy. SOCIAL HISTORY: Denies alcohol, tobacco or illicit drugs. He is a resident of [facility]. ALLERGIES: [place]. HOME MEDICATIONS: Full list reviewed and the MAR and reviewed. FAMILY HISTORY: Reviewed with patient, but noncontributory. REVIEW OF SYSTEMS: A full 14 systems reviewed and negative except as specified in HPI. PHYSICAL EXAMINATION: Vital Signs: Patient is currently afebrile. His vital signs stable. General: No acute distress. HEENT: Normocephalic, atraumatic. Pupils equal, round, reactive to light. Mucous membranes moist. Oropharynx benign. Neck: Supple. Trachea midline. Cardiovascular: Regular rate and rhythm. Lungs: Grossly clear. Abdomen: Soft, nontender, nondistended. Extremities: Moves all extremities. Neurologic: Grossly intact. Skin: The area on the mid back noted, previously drained. There is some mild induration and some associated erythema. Pulled the packing. No residual purulence noted. Had the nurse repack the wound. Vascular: All extremities perfused. LABORATORY: White blood cell count 3, hematocrit 29, platelet count 143,000. Remainder of labs reviewed. CT scan independently reviewed and radiology report reviewed. ASSESSMENT AND PLAN: A 58-year-old with back abscess. Back abscess. At this time, await full cultures. Gram stain showed gram-positive cocci, but no growth as of yet. I do not suspect that a biopsy is needed at this point since it looks mostly like an abscess, but if it does not improve we will consider doing a biopsy. At this point agree with antibiotics. We will do Vashe packing once a day to the wound. cc: Иван Sellers MD
[2019-04-30] MEDS: BUSPAR PO SCH ×4 (09:35→20:15)
[2019-04-30] MEDS: DULCOLAX PR SCH (09:36)
[2019-04-30] MEDS: MAXIPIME 1 GM in NS 50 ML IV SCH (09:36)
[2019-04-30] MEDS: DEPAKENE LIQUID PO SCH ×4 (09:36→20:15)
[2019-04-30] MEDS: SEROQUEL PO SCH ×2 (09:36→20:16)
[2019-04-30] MEDS: LACTULOSE PO SCH ×2 (09:36→20:16)
[2019-04-30] MEDS: HEPARIN SUBQ SCH ×2 (09:36→20:15)
[2019-04-30] MEDS: ZYRTEC PO SCH (09:36)
[2019-04-30] MEDS: COLACE PO SCH ×2 (09:36→20:16)
[2019-04-30] MEDS: MIRALAX PO SCH ×2 (09:37→20:16)
--- NOTE | 2019-04-30 13:43 | NEPHROLOGY PROGRESS NOTE ---
DATE: 04/30/2019 SUBJECTIVE: No complaints, no shortness of breath, nausea, vomiting. OBJECTIVE: Vital Signs: Blood pressure 137/62, heart rate 94, respirations 18, afebrile. General: In no acute distress. Skin: Warm and dry. Neck: Neck veins are 6 cm. Heart: Regular. No gallops. Lungs: Equal, no crackles. Abdomen: Soft, bowel sounds present. Extremities: No edema. IMPRESSION: Acute kidney injury. Obstruction, urinary tract infection, Bactrim. Potassium is 5.2 today. Bicarbonate 20. Observe. cc: Daniel Mcgovern MD
--- NOTE | 2019-04-30 17:17 | PROGRESS NOTE ---
DATE: 04/30/2019 SUBJECTIVE: The patient is resting comfortably in bed. He states that he feels much better today. He is eating well and having regular bowel movements. OBJECTIVE: Vital Signs: Temperature 98 degrees, blood pressure 155/83, heart rate 93, respirations 18, O2 saturation 96% on room air. General: This is a chronically ill-appearing elderly male lying in bed in no acute distress. Heart: S1, S2 normal. Tachycardic. Lungs: Clear to auscultation bilaterally. Abdomen: Positive bowel sounds. Soft, nontender, nondistended. Extremities: No edema. Neurologic: The patient is alert and oriented x3. LABS: White blood cell count 3.6, hemoglobin 9.2, hematocrit 29, platelets 143,000. Sodium 140, potassium 5.2, chloride 109, CO2 20, BUN 29, creatinine 3.4, glucose 104, phosphorus 1.9. ASSESSMENT AND PLAN: 1. Back abscess status post incision and drainage. So far the cultures are showing no growth. We will continue with the current antibiotic regimen as directed by Dr. De Dios. General Surgery is also following. 2. Acute kidney injury. Slowly improving. The patient's urine output remains adequate. Continue with IV fluids. Nephrology is following. 3. Hyperkalemia. Stable. We will continue to monitor closely. 4. Metabolic acidosis. Stable. Continue to monitor closely for improvement. 5. Hypophosphatemia. We will replace the patient's phosphorus. 6. History of oropharyngeal cancer. Aware. The patient is followed at [facility]. 7. Bipolar disorder. Continue on valproic acid and Seroquel. 8. Deep vein thrombosis prophylaxis. Continue on heparin. 9. Continue with physical therapy. cc: Paula Rivera MD [facility]
[2019-04-30] MEDS: TYLENOL PO PRN (18:38)
[2019-04-30] MEDS: FLOMAX PO SCH (20:15)
[2019-05-01] MEDS: TYLENOL PO PRN (00:18)
[2019-05-01] MEDS: DUONEB (A & A) INH SCH ×6 (03:32→23:10)
[2019-05-01] MEDS: ZYVOX PO SCH ×2 (05:19→17:09)
[2019-05-01] MEDS: MORPHINE IV PRN ×6 (05:20→22:35)
[2019-05-01 05:46] LABS: HEMATOCRIT 29.4 % (42.0-52.0); HEMOGLOBIN 9.3 g/dL (14.0-18.0); MCH 30.8 PG (27-31); MCHC 31.6 g/dL (33-37); MCV 97.4 FL (81-99); MPV 9.1 FL (7.4-10.4); RBC 3.02 XMIL (4.7-6.1); RDW 13.5 % (11.5-14.5); WBC 3.74 X1000 (4.8-10.8)
[2019-05-01 06:12] LABS: ALBUMIN 3.4 g/dL (3.5-5.0); CALCIUM 9.4 mg/dL (8.8-10.2)
--- NOTE | 2019-05-01 07:15 | GENERAL SURGERY PROGRESS NOTE ---
DATE: 05/01/2019 SUBJECTIVE: The patient had a fever last night but is feeling better since then. OBJECTIVE: Vital Signs: The patient's current temperature is 98.4 degrees, his T-max was 101.5 degrees. Remainder of vital signs have been stable. General Examination: No acute distress. HEENT: Normocephalic, atraumatic. Pupils equal, round, reactive to light. Mucous membranes moist. Oropharynx benign. Neck: Supple. Trachea midline. Cardiovascular: Regular rate and rhythm. Lungs: Grossly clear. Abdomen: Soft, nontender, nondistended. Extremities: Moves all extremities. Neurologic: Grossly intact. Skin: Wound on the back with dressing intact. Does not seem like the erythema has spread. Vascular: All extremities perfused. Laboratory: White blood cell count is 3, hematocrit 29, is relatively stable, although he did come in with a white blood cell count of 7. Remainder of laboratories reviewed. His creatinine has improved. ASSESSMENT/PLAN: A 58-year-old gentleman with a back abscess. Back abscess. At this time, we will continue local wound care. Recommend to continue antibiotics. So far, no growth from his wound cultures but we will continue his Zyvox and Maxipime. Infectious disease is following. cc: Иван Sellers MD
--- NOTE | 2019-05-01 08:15 | INFECTIOUS DISEASE PROGRESS NO ---
DATE: 05/01/2019 PRESENT ILLNESS: The patient has a back abscess, which has been drained. The patient did spike a temperature last night to 102, and the exact cause of the temperature spike is uncertain to me at this time. The patient, both on his renal ultrasound and on his CT scan, shows a left hydronephrosis with a bladder wall that is thick, and the bladder is distended. MEDICATIONS: The patient is on a combination of cefepime and Zyvox. The cefepime dose has been modified because of the patient's renal failure. PHYSICAL EXAMINATION: Vital Signs: Temperature earlier was 102, now it is 98.4, pulse 81, respirations 17, blood pressure 132/85. General: This is an ill-appearing, middle-aged male. He is in no acute distress. HEENT: He can hear my spoken words and see near objects. He has poor oral hygiene. I did not see any white patches in his mouth. Neck: The patient's neck is leaning forward. Thorax: The patient has a large dorsal kyphosis. Also, there is an area that is erythematous and it has been drained, and there is a drain in place in there. Overall, the area on the back that was drained is smaller and less erythematous than I saw it a few days ago. Lungs: Clear to auscultation. Cardiovascular: Heart rate is regular. Abdomen: Soft and nontender. Neurologic: The patient is awake. He can move his extremities. There is no tremor. IMAGING AND LABORATORY DATA: Chest x-ray shows vascular prominence. CT scan of the abdomen and pelvis shows left hydronephrosis, bladder wall thickening, and bibasilar bronchiectasis. Renal ultrasound showed distended bladder and left hydronephrosis also. The patient's CBC shows a white count of 3740, hemoglobin 9.3, and platelet count 109,000. Creatinine is 3. GFR is 22. Urine, blood, and wound cultures are all negative. ASSESSMENT AND PLAN: The patient has a back abscess, which has been drained. My plan is to continue with cefepime and Zyvox, even though the cultures are negative. I have put in a consult for Dr. Da Silva of Urology because of the patient's bronchiectasis and also having a distended bladder, even though a Sanchez catheter is in place. COMORBIDITIES: The patient has dementia, he had oropharyngeal cancer, and he has a large dorsal kyphosis. cc: Jenaro De Dios MD
[2019-05-01] MEDS: MAXIPIME 1 GM in NS 50 ML IV SCH (09:15)
[2019-05-01] MEDS: BUSPAR PO SCH ×3 (09:16→21:52)
[2019-05-01] MEDS: HEPARIN SUBQ SCH (09:16)
[2019-05-01] MEDS: SEROQUEL PO SCH ×2 (09:16→21:52)
[2019-05-01] MEDS: ZYRTEC PO SCH (09:16)
[2019-05-01] MEDS: DEPAKENE LIQUID PO SCH ×4 (09:16→21:53)
[2019-05-01] MEDS: COLACE PO SCH ×2 (09:16→21:52)
[2019-05-01] MEDS: MIRALAX PO SCH ×2 (09:17→21:53)
[2019-05-01] MEDS: DULCOLAX PR SCH (09:17)
[2019-05-01] MEDS: LACTULOSE PO SCH ×2 (09:17→21:53)
[2019-05-01] MEDS: NS 1,000 ML IV SCH ×3 (09:27→13:56)
--- NOTE | 2019-05-01 11:13 | Diag Imaging Result Doc PS360 ---
US RENAL 2 (RETROPER) COMPLETE - 05/01/2019 INDICATION: ivonne/arf, resolution of left hydronephrosis TECHNIQUE: COMPARISON: CT from 04/28/2019 FINDINGS: The urinary bladder is collapsed by a Sanchez catheter. There is some fluid spaces in the left renal collecting system which may indicate moderate hydronephrosis versus several peripelvic cysts. The appearance is stable from the prior CT. The right kidney remains normal. Small right renal cyst measures 1.3 cm. The right kidney measures 10.5 x 4.8 x 5 cm. The left kidney measures 10.1 x 4.7 x 4.6 cm. IMPRESSION: 1. Cystic fluid collections of the left renal collecting system consistent with persistent hydronephrosis versus peripelvic cysts. 2. Better drainage of the urinary bladder. There is nonspecific wall thickening of the urinary bladder which is indeterminate. Follow-up recommended. Electronically signed by Shun White 05/01/2019 11:11 AM
--- NOTE | 2019-05-01 11:40 | Diag Imaging Result Doc PS360 ---
CHEST-1 VIEW - 05/01/2019 INDICATION: dyspnea COMPARISON: 04/28/2019 FINDINGS: Stable left chest port in good position. There is been significant improvement in the bibasilar nonspecific infiltrates. Heart size remain normal. No pneumothorax or pleural effusion. IMPRESSION: Significant improvement from prior. Electronically signed by Shun White 05/01/2019 11:37 AM
--- NOTE | 2019-05-01 14:31 | CONSULTATION ---
DATE OF CONSULTATION: 05/01/2019 REASON FOR CONSULTATION: Acute on chronic kidney disease with left hydronephrosis. HISTORY OF PRESENT ILLNESS: Mr. Sheehan is a 58-year-old with history of oropharyngeal cancer status post radiation and chemotherapy, hypertension, hyperlipidemia, dementia, and physical debilitation, who presents in consultation regarding left hydronephrosis and acute on chronic kidney disease. The patient was brought from [facility] to the emergency room on 04/28/2019 due to concern over a lesion on his back that was concerning for malignancy versus an abscess. The patient was evaluated in the emergency room, and underwent drainage by the ER physician, and had a large amount of drainage return from this. The patient had previously been on Bactrim, and was complaining of back pain. On presentation, the patient's lab showed a creatinine of 6.1 from a baseline in the range of 1.3 to 1.8 in November and December of this year. The patient was hypotensive and was given fluid resuscitation. He underwent a CT scan, which showed left hydronephrosis with evidence of urinary retention, and a catheter was inserted with a large amount of urine return. The patient has made over 13 L of urinary output over the past 3 days. Renal function has slowly improved with creatinine of 3 today from 6.1 on presentation. He denies any bladder discomfort or hematuria. He denies any issues with urination at home. Denies any urgency, frequency, hesitancy, or weak urine stream. The patient states that he has been seen previously by a urologist in [place], Dr. Martinez, for regular PSA checks. The patient moved from [place] to [place]. PAST MEDICAL HISTORY: 1. Dementia. 2. Hyperlipidemia. 3. Hypertension. 4. Oropharyngeal cancer. 5. Bipolar. 6. Depression. PAST SURGICAL HISTORY: 1. Right knee arthroscopy. 2. Neck biopsy. ALLERGIES: 1. Aprepitant 2. Fosaprepitant. HOME MEDICATIONS: 1. Atorvastatin 10 mg p.o. 2. BuSpar 20 mg p.o. t.i.d. 3. Klonopin 0.5 mg p.o. t.i.d. 4. Colace 100 mg p.o. b.i.d. 5. Escitalopram 20 mg p.o. daily. 6. Famotidine 20 mg p.o. b.i.d. 7. Lasix 1 tablet daily. 8. [place] 7.5/325 mg every 6 hours as needed for pain. 9. Xyzal 5 mg p.o. daily. 10. Meloxicam 7.5 mg p.o. daily. 11. Promethazine 12.5 mg p.o. every 4 hours as needed. 12. Seroquel 25 mg p.o. daily. 13. Bactrim 1 tablet p.o. every 12 hours. 14. Tizanidine 10 mg p.o. every 6 hours. 15. Valproic acid 250 mg p.o. 4 times daily. SOCIAL HISTORY: Denies alcohol, tobacco, or illicit drug use. REVIEW OF SYSTEMS: A 12-point review of systems was performed pertinent positive and negative in HPI. PHYSICAL EXAMINATION: Vital Signs: Temperature 97.9 degrees, heart rate 80, blood pressure 120/71, oxygen saturation 94% on room air. General: No acute distress. Resting comfortably in bed. Alert and oriented x3. HEENT: Normocephalic, atraumatic. Pupils equal, round, reactive to light. Mucous membranes moist. Neck: Trachea midline with no palpable masses. Respiratory: Good respiratory effort without audible wheezing or rales. Cardiovascular: Regular rate and rhythm. No evidence of lower extremity edema. GI: Abdomen is soft, nontender, nondistended. No palpable masses. : No suprapubic tenderness. No CVA tenderness. Urethral catheter in place, draining clear-yellow urine. Normal phallus with orthotopic meatus. Bilateral testicles palpated without asymmetry. Digital rectal exam deferred until surgery. Neurologic: Grossly motor and sensory intact. Skin: No skin lesions or rashes. The patient has a dressing overlying his back at the site of incision and drainage in the emergency room. Musculoskeletal: The patient has evidence of kyphosis with normal appearance of extremities. LABORATORY DATA: White blood cell count 5.5, hemoglobin 10.4, hematocrit 32.3, platelets 134,000. Sodium 141, potassium 5.5, chloride 107, bicarb 19, BUN 46, creatinine 3.0, glucose 90. Urine culture: No growth. IMAGING: The patient had a CT of the abdomen and pelvis performed on 04/28/2019, which shows evidence of left hydronephrosis all the way to the bladder, with slightly distended bladder, with thickened cha proximally. It seemed to be small. No evidence of obstructing lesions or lymphadenopathy. ASSESSMENT AND PLAN: Mr. Sheehan is a 58-year-old with history of oropharyngeal cancer, dementia, hyperlipidemia, hypertension, depression, and bipolar disorder, who presents in consultation regarding left hydronephrosis and acute on chronic kidney disease. The patient's baseline renal function appears to be somewhere between 1.3 and 1.8 from earlier this summer. The patient's creatinine on presentation was 6.1. Creatinine today is 3.0. The patient's creatinine has slowly down trended. Repeated a renal ultrasound today, which shows residual hydronephrosis with the bladder decompressed. Due to these findings, I recommend cystoscopy and bilateral retrograde pyelograms. Consideration of left ureteral stent tomorrow in the operating room. I discussed with the patient previously that we will make her nothing by mouth at midnight in preparation for surgery. The patient has been seen previously by a urologist in [place]. Denies any voiding complaints at home. Has indwelling catheter in place. I plan to remove that when renal function improves. Patient followed by Nephrology as well as Infectious Disease regarding back infection and acute on chronic kidney disease. Will continue to monitor from a urologic standpoint. Please call with questions or concerns. cc: MD KRISTIE Valdez
--- NOTE | 2019-05-01 15:57 | PROGRESS NOTE ---
DATE: 05/01/2019 SUBJECTIVE: The patient is resting comfortably. He complains of a productive cough. OBJECTIVE: Vital signs: Temperature 98.2 degrees, blood pressure 136/80, heart rate 70, respirations 20, O2 saturation 98% on room air. General: This is a chronically ill-appearing elderly male lying in bed in no acute distress. Heart: S1, S2 normal. Regular rate and rhythm. Lungs: Coarse breath sounds bilaterally. Abdomen: Positive bowel sounds. Soft, nontender, nondistended. Extremities: No edema, no cyanosis. Neuro: The patient is alert and oriented x3. LABS: White blood cell count 3.7, hemoglobin 9.3, hematocrit 29, platelets 109,000. Sodium 139, potassium 5, chloride 108, CO2 18, BUN 22, creatinine 3, albumin 3.4. Chest x-ray shows improvement from prior. ASSESSMENT AND PLAN: 1. Back abscess status post incision and drainage. The wound culture revealed no growth. Continue with antibiotic therapy as directed by Dr. De Dios. General Surgery is following. 2. Acute kidney injury. Slowly improving. Continue to monitor closely for improvement. 3. Metabolic acidosis. Stable. 4. History of oropharyngeal cancer. Aware. 5. Moderate left hydronephrosis. The patient is scheduled for cystoscopy tomorrow. 6. Continue with physical therapy. cc: Paula Rivera MD [facility]
[2019-05-01] MEDS: FLOMAX PO SCH (21:52)
[2019-05-02] MEDS: NS 1,000 ML IV SCH ×2 (00:37→13:56)
[2019-05-02] MEDS: DUONEB (A & A) INH SCH ×6 (03:32→23:35)
[2019-05-02 05:32] LABS: HEMATOCRIT 32.8 % (42.0-52.0); HEMOGLOBIN 10.5 g/dL (14.0-18.0); MCV 96.8 FL (81-99); MPV 8.6 FL (7.4-10.4); RBC 3.39 XMIL (4.7-6.1); RDW 13.3 % (11.5-14.5); WBC 4.17 X1000 (4.8-10.8)
[2019-05-02] MEDS: ZYVOX PO SCH ×3 (05:38→17:12)
[2019-05-02 06:02] LABS: ALBUMIN 3.5 g/dL (3.5-5.0); CALCIUM 9.4 mg/dL (8.8-10.2); CREATININE 2.6 mg/dL (0.7-1.2); PHOSPHORUS 3.4 mg/dL (2.7-4.5); POTASSIUM 5.8 mmol/L (3.5-5.1)
[2019-05-02] MEDS ORDERED: ALBUTEROL 0.5% INH CONC FOR HYPERKALEMIA INH ONE (06:38)
[2019-05-02] MEDS ORDERED: D50W SYRINGE IV ONE (06:39)
[2019-05-02] MEDS ORDERED: HUMULIN R IV ONE (06:39)
--- NOTE | 2019-05-02 07:13 | GENERAL SURGERY PROGRESS NOTE ---
DATE: 05/02/2019 SUBJECTIVE: Patient seems to be doing okay. OBJECTIVE: Vital Signs: Patient is currently afebrile. His vital signs are stable. General: No acute distress. HEENT: Normocephalic, atraumatic. Pupils equal, round, reactive to light. Mucous membranes moist. Oropharynx benign. Neck: Supple. Trachea midline. Cardiovascular: Regular rate and rhythm. Lungs: Grossly clear. Abdomen: Soft, nontender, nondistended. Extremities: Moves all extremities. Neurologic: Grossly intact. Skin: Wound noted to the back overall seems to be improved. There is an area of eschar but I do not think it needs to be actively removed. The area seems a whole lot less erythematous and less indurated. Vascular: All extremities perfused. LABORATORY: White blood cell count 4, hematocrit 32. Remainder of labs reviewed. Of note, his potassium is 5.8. ASSESSMENT AND PLAN: A 58-year-old gentleman with back abscess. Back abscess. At this time, continue local wound care. No need for any further debridement at this point. It seems to be improving. We will continue antibiotics per Infectious Disease. His potassium has gone up. We will defer to Nephrology. cc: Иван Sellers MD
--- NOTE | 2019-05-02 07:14 | INFECTIOUS DISEASE PROGRESS NO ---
DATE: 05/02/2019 PRESENT ILLNESS: The patient has a back abscess, which has been drained. A day ago he had an elevated temperature, but last night and this morning he has not had any fever. I should add that the patient's abscess continually is getting better. MEDICATIONS: The patient is on a combination of cefepime and Zyvox. PHYSICAL EXAMINATION: Vital Signs: Temperature is 98.6 degrees, pulse 84, respirations 17, blood pressure 127/65. General: This is an ill-appearing middle-aged male. He is in no acute distress. Head/Eyes/Ears/Nose/Throat: He can hear my spoken words and see near objects. I did not notice any white coating of his tongue. Neck: The patient continually has neck forward. Back: The patient has a large dorsal kyphosis. The patient's abscess is getting continually smaller and also it is no longer erythematous. It is more pink in color, and finally, I did not notice any purulent drainage. Lungs: Clear to auscultation. Cardiovascular: Regular heart rate. Abdomen: Soft and nontender. Neurologic: The patient is alert. He can move his extremities. He carries on a coherent conversation. LABORATORY AND RADIOLOGY: The patient's CBC shows a white count of 4170, hemoglobin 10.5, platelet count 131,000. Creatinine is 3, GFR is 22. Repeat blood cultures are sterile. ASSESSMENT AND PLAN: Regarding the patient's back abscess, I plan on continuing with the current antibiotics. I think the patient could very soon go home on oral antibiotics. I appreciate Dr. Da Silva seeing the patient regarding the patient's hydronephrosis and also urinary retention. COMORBIDITIES: Include the patient has dementia. He also had oropharyngeal cancer. He has a large dorsal kyphosis, and he has developed renal failure. cc: Jenaro De Dios MD
--- NOTE | 2019-05-02 07:24 | PROGRESS NOTE ---
DATE: 05/02/2019 SUBJECTIVE: No acute events overnight. Patient was made n.p.o. in preparation for possible surgery today. The patient had a renal ultrasound yesterday which showed a small amount of hydronephrosis in the left kidney with decompressed bladder. The patient denies any hematuria, dysuria, nausea, or vomiting. The patient feels that his back wound is improving. Sanchez catheter is draining well. PHYSICAL EXAMINATION: Vital Signs: Temperature 98.6, heart rate 84, blood pressure 127/67, oxygenation saturation 92% on room air. General: No acute distress. Resting comfortably in bed. Alert and oriented x3. Respiratory: Good respiratory effort without audible wheezing or rales. Abdomen: Soft, nontender, nondistended. Genitourinary: Urethral catheter in place with orthotopic meatus. The catheter is draining clear yellow urine. Skin: The patient's back lesion is covered with a dressing. The patient has evidence of kyphosis. LABS: White blood cell count 4.2, hemoglobin 10.5, hematocrit 32.8, platelets 131,000. Sodium 138, potassium 5.8, chloride 107, bicarb 19, BUN 24, creatinine 2.6, glucose 89. ASSESSMENT AND PLAN: Mr. Sheehan is a 58-year-old with hyperlipidemia, hypertension, history of oropharyngeal cancer, bipolar, depression, and dementia, who presents in consultation regarding left hydronephrosis. Patient had a renal ultrasound performed which showed persistent left hydronephrosis. The patient's renal function has now returned to normal with a creatinine of 2.6. The patient's creatinine yesterday was 3.0. Due to persistently elevated creatinine and hydronephrosis, I recommend cystoscopy with bilateral retrograde pyelograms, and consideration for left ureteral stent placement. We will plan to do this later today in the operating room. I discussed this at length with the patient and his power of general duty nurse this morning, who are in agreement. Risks, benefits, and alternatives of procedure were discussed with patient and his power of general duty nurse this morning. cc: Yimi Da Silva MD [facility]
[2019-05-02] MEDS: DULCOLAX PR SCH (08:17)
[2019-05-02] MEDS: MORPHINE IV PRN ×3 (08:18→21:02)
[2019-05-02] MEDS: MAXIPIME 1 GM in NS 50 ML IV SCH (08:20)
[2019-05-02] MEDS: DEPAKENE LIQUID PO SCH ×4 (08:24→20:59)
[2019-05-02] MEDS: ZYRTEC PO SCH (08:24)
[2019-05-02] MEDS: MIRALAX PO SCH ×2 (08:24→20:59)
[2019-05-02] MEDS: SEROQUEL PO SCH ×3 (08:24→20:59)
[2019-05-02] MEDS: LACTULOSE PO SCH ×2 (08:24→20:59)
[2019-05-02] MEDS: COLACE PO SCH ×3 (08:25→20:59)
[2019-05-02] MEDS: BUSPAR PO SCH ×4 (08:25→23:00)
--- NOTE | 2019-05-02 12:53 | PROGRESS NOTE ---
DATE: 05/02/2019 Mr. Yosef Sheehan is going to surgery for a urology procedure. He has some skin necrosis overlying this previous back abscess. While in surgery, I will debride that eschar and be sure that all purulence is drained from this soft tissue infection midback. I have discussed this procedure in detail with him and he wants to proceed. cc: Tracee Arias MD
[2019-05-02] MEDS ORDERED: DIPRIVAN 1% ONE (13:56)
[2019-05-02] MEDS ORDERED: XYLOCAINE-MPF 2% ONE (13:57)
[2019-05-02] MEDS ORDERED: DUONEB (A & A) INH ONE (14:19)
--- NOTE | 2019-05-02 14:43 | PROVIDER PROGRESS NOTE ---
Progress Note Subjective: Pt voices being thirsty but is NPO for upcoming renal stent placement. Denies any other uremic systems. Objective: temperature 98.6, pulse 84, respirations 17, blood pressure 127/65, 02 sat 92% on room air General: white male lying in bed in no acute distress. HEENT: normocephalic, atraumatic, pupils equal and reactive. Mucous membranes dry. Skin: warm and dry. Back Dressing covered. Neck: Neck is in a forward position due to kyphosis. No JVD observed. Cardiovascular: S1S2 regular rate and rhythm. No murmur or gallop. Respiratory: clear with equal air entry. Abdomen: protruding, nontender, bowel sounds active. : non inspected, yuen in place with clear yellow urine Extremities: no edema, clubbing, or cyanosis. Neurological: alert and oriented to person place and time Labs: Wbc 4.17, hemoglobin 10.5, hematocrit 32.8, platelet count 131, sodium 138, potassium 5.8, chloride 107, carbon dioxide 19, BUN 24, creatinine 2.6. Intake 1225, output 3350. Impression: Acute kidney injury from left hydronephrosis. Left ureteral stent placement today. We will monitor. Blood pressure. In target. Volume status. Euvolemic on exam. Anemia. Low but stable, does not meet transfusion criteria. Electrolytes and acid base balance. Hyperkalemia. Treated with albuterol, D5, and insulin. Nutrition. Adequate. Ambulation. Up with PT. Medication review. No changes.
[2019-05-02] MEDS ORDERED: FENTANYL ONE (14:47)
[2019-05-02] MEDS: DILAUDID ONE ×2 (15:54→15:57)
--- NOTE | 2019-05-02 17:28 | PROGRESS NOTE ---
DATE: 05/02/2019 SUBJECTIVE: The patient is resting comfortably in bed. He is awaiting a urologic procedure to be done today. OBJECTIVE: Vital Signs: Temperature 98.6 degrees blood pressure 108/75, heart rate 89, respirations 21, O2 saturation 98% on room air. General: This is an elderly male lying in bed in no acute distress. Heart: S1, S2 normal. Regular rate and rhythm. Lungs: Clear to auscultation bilaterally. Abdomen: Positive bowel sounds. Soft, nontender, nondistended. Extremities: No edema, no cyanosis. Neurologic: The patient is alert and oriented x4. LABS: White blood cell count 4.1, hemoglobin 10, hematocrit 32, platelets 131,000. Sodium 138, potassium 5.8, chloride 107, CO2 19, BUN 24, creatinine 2.6, glucose 89. ASSESSMENT AND PLAN: 1. Back abscess status post incision and drainage. Continue with antibiotic therapy and wound care. Dr. De Dios and General Surgery are following. 2. Acute kidney injury secondary to bactrim usage and urinary obstruction. The patient's urine output remains adequate and the BUN and creatinine continue to improve. Continue on IV fluid and bladder decompression. 3. Left hydronephrosis. The patient is scheduled to undergo cystoscopy with ureteral stent placement. 4. Metabolic acidosis. Stable. 5. History of oropharyngeal cancer. Aware. 6. Hyperkalemia. We will treat the patient's potassium. We will repeat a potassium level this evening. 7. Bipolar disorder. Continue on depakene. 8. Continue with physical therapy. cc: Paula Rivera MD MTDD
--- NOTE | 2019-05-02 19:08 | OPERATIVE NOTE ---
PROCEDURE DATE: 05/02/2019 PREOPERATIVE DIAGNOSES: 1. Left hydronephrosis. 2. Bladder wall thickening. POSTOPERATIVE DIAGNOSES: 1. Left hydronephrosis. 2. Bladder wall thickening. 3. Bullous changes to the bladder. 4. Left ureteral stricture. SURGEON: Yimi Da Silva MD [facility] SPECIALIST: None. COMPLICATIONS: None. PROCEDURES PERFORMED: 1. Cystoscopy with bilateral retrograde pyelograms. 2. Left ureteroscopy. 3. Left ureteral stent placement. 4. Bladder biopsy and fulguration of bleeding ANESTHESIA: LMA. DRAINS: An 18-Greek coude catheter. SPECIMENS REMOVED: Bladder biopsies x2, 1 biopsy from the left lateral wall and two biopsies from right lateral wall. OPERATIVE FINDINGS: The patient had a normal urethra. No stricture disease or papillary lesions. Once inside the posterior urethra patient's prostate was enlarged and slightly high-riding. Once inside the bladder there was a small median lobe as well as significant trabeculation, cellules, and small wide mouth diverticulum in the left portion of the bladder. Both orifices were visualized. Some bullous changes seen in the posterior wall of the bladder, most prominent on the right lateral wall. The diverticulum was evaluated with no papillary lesions seen. I performed retrograde pyelograms. The left side showed a very dilated collecting system starting very close to the bladder with inability to get contrast past into the collecting system itself. Right sided retrograde pyelogram was performed which showed a delicate collecting system with no evidence of obstruction and good drainage on postdrainage film. Performed left ureteroscopy and was able to see a small stricture distally right at entering to the bladder likely in the intravesical ureter, likely related to patient's significant trabeculations and cellules throughout the bladder. I was able to advance the ureteroscope past this and performed retrograde pyelogram through the scope, which outlined a very hydronephrotic collecting system down to this transition point near the bladder. I was able to place a left ureteral stent with good drainage through and around the stent. The patient underwent bladder biopsies x3 of the bullous changes in the posterior wall of the bladder. These areas were fulgurated and good hemostasis was performed within the procedure. INDICATION FOR PROCEDURE: Mr. Sheehan is a 58-year-old who presented to the hospital with a lesion on his back that was biopsied and found to be an abscess. The patient's renal function at that time was elevated at 6. He was admitted for observation. He had a CT scan which showed left hydronephrosis as well as distended bladder even with indwelling catheter in place. The patient underwent repeat ultrasound yesterday which showed residual hydronephrosis and a decompressed bladder. I talked with him and I recommended cystoscopy evaluation of the bladder as well as bilateral retrograde pyelograms and possible left ureteral stent placement. Risks, benefits, alternatives of procedure discussed with the patient and the patient elected to proceed. DESCRIPTION OF PROCEDURE: After informed consent was obtained, the patient was brought to the operating room placed on the operating table in supine position. The patient had received antibiotics on the floor and underwent LMA placement. The patient was prepped and draped in usual sterile fashion. A preoperative time-out was performed with all parties in agreement including anesthesia, surgical, nursing staff. At which point I inserted a 21-Greek cystourethroscope through the urethra showing normal caliber urethra, without stricture disease or papillary lesions. Once in the posterior urethra patient's prostate was evaluated and slightly enlarged with a small median lob. Once inside of the bladder, the entirety of the bladder was inspected with some bullous changes seen on the posterior wall of the bladder. Hard to tell if these were papillary changes versus true bullous changes. Both ureteral orifices visualized with efflux of clear yellow urine. The patient had multiple trabeculations and cellules throughout the bladder, most prominent on the left side of the bladder with several diverticulum seen. Each of these was evaluated with our camera and showed no evidence of any papillary lesions or erythema. The patient's bladder was cycled multiple times and there were several erythematous areas, likely related to catheter trauma on the lower portion of the posterior wall. Once the entirety of the bladder was inspected and each of the diverticulum evaluated, opening catheter was then passed through the scope, flushed of all bubbles, and the left ureteral orifice cannulized and injected with Omnipaque. This showed a very hydronephrotic ureter seemed to transition at the bladder itself. Could not get any contrast past the 1st 3-4 cm segment of the ureter itself. Open ended catheter was removed and minimal drainage was seen from the distal ureter. Retrograde pyelogram was performed on the right side which outlined a normal collecting system. No evidence of any filling defects or hydronephrosis. Good drainage was seen on postdrainage film with minimal retained contrast seen. A decision made to perform a left ureteroscopy, so a wire was passed through the open-ended catheter up into the left ureteral orifice and into the kidney itself. A wire was left in place and the scope and the ureteral catheter were removed. At which point a semi- rigid ureteroscope was advanced through the urethra and into the bladder. I was able to cannulate the left ureteral orifice easily and advanced to a narrowing within the intramural portion of the ureter. I was able to advance the ureteroscope past this and it was seen to be quite hydronephrotic with hydroureter proximal to this. Retrograde pyelogram was then performed which outlined distal obstruction. No obvious tumors or external compression was seen. The wire was left in place and the ureteroscope was slowly withdrawn with no significant ureteral trauma. Wire was left in place and back-loaded through the cystourethroscope and a 6 x 28 cm stent was advanced over the wire with good curl within the kidney, endoscopically visualized in the bladder. Good drainage was seen through and around the stent. The system slowly decompressed. It was quite hydronephrotic due to injection of the Omnipaque. Once the stent was placed, attention was placed to performing bladder biopsies. Several bullous areas were seen on the posterior wall of the bladder and each of these were biopsied. 1 biopsy on the left side laterally and 2 on the posterior lateral wall of the bladder. Each of these areas were then fulgurated and good cauterization was seen. No active bleeding was seen after multiple cycling of the bladder. The patient's bladder was left full and an 18-Greek coude catheter was advanced through the urethra into the bladder. Irrigant was clear yellow to light pink. A StatLock was then placed. Dr. Arias came in to preform incision and debridement of patient's back wound. Please see separately dictated operative note. Patient was awoken and was taken to recovery in stable condition. cc: Yimi Da Silva MD [facility]
--- NOTE | 2019-05-02 19:26 | OPERATIVE NOTE ---
PROCEDURE DATE: 05/02/2019 PREOPERATIVE DIAGNOSIS: Soft tissue abscess midback. POSTOPERATIVE DIAGNOSIS: Soft tissue abscess midback. PRINCIPAL PROCEDURE: Debridement of skin, subcutaneous tissue and muscle, abscess cavity midback. SURGEON: Tracee Arias MD. ANESTHESIA: General. ESTIMATED BLOOD LOSS: 10 mL. DRAINS: None. INDICATIONS: Mr. Yosef Sheehan is a 58-year-old white male who was admitted on 04/28/2019. He underwent a limited incision and drainage of soft tissue abscess midback. He has been hospitalized on IV antibiotics. On exam today he had an eschar involving the skin, subcutaneous tissue of this abscess area and debridement was recommended because he was already coming to surgery for a urologic procedure. FINDINGS: There was no purulence but I debrided skin, subcutaneous tissue and muscle in this area involving the abscess cavity. All necrotic tissue was removed and I thoroughly irrigated the area and packed it with iodoform gauze. DESCRIPTION OF PROCEDURE: The patient had already completed a urologic procedure by Dr. Da Silva. We placed him in the left lateral decubitus position and this area of his midback was prepped and draped in a sterile field. I used forceps and a 15 blade scalpel to debride the eschar which was full-thickness skin, subcutaneous tissue. That got me down to the abscess cavity were had to debride some necrotic tissue which included skin, subcutaneous tissue and muscle. I debrided it with forceps and scissors in addition to forceps and a 15 blade scalpel. We thoroughly irrigated the wound and then packed it open with iodoform gauze followed by dry dressing. Plans are for him to go the recovery room and then return to his room on the floor. He tolerated the procedure well. cc: Tracee Arias MD
[2019-05-02] MEDS ORDERED: LEVSIN PO PRN (19:55)
[2019-05-02] MEDS: FLOMAX PO SCH (20:59)
[2019-05-02] MEDS: KLONOPIN PO PRN (20:59)
[2019-05-02] MEDS: HEPARIN SUBQ SCH (23:00)
[2019-05-03] MEDS: LOKELMA POWDER PACKET PO SCH ×3 (00:12→23:23)
[2019-05-03] MEDS ORDERED: ALBUTEROL 0.5% INH CONC FOR HYPERKALEMIA INH ONE ×2 (01:59→06:30)
[2019-05-03] MEDS ORDERED: HUMULIN R IV ONE ×2 (01:59→06:30)
[2019-05-03] MEDS ORDERED: D50W SYRINGE IV ONE ×2 (02:00→06:30)
[2019-05-03] MEDS: DUONEB (A & A) INH SCH ×4 (02:34→15:35)
[2019-05-03 05:19] LABS: HEMATOCRIT 32.1 % (42.0-52.0); MCH 30.6 PG (27-31); MCHC 31.2 g/dL (33-37); MCV 98.2 FL (81-99); MPV 8.8 FL (7.4-10.4); RBC 3.27 XMIL (4.7-6.1); RDW 13.2 % (11.5-14.5); WBC 3.71 X1000 (4.8-10.8)
[2019-05-03 05:36] LABS: ALBUMIN 3.5 g/dL (3.5-5.0); CREATININE 2.3 mg/dL (0.7-1.2); PHOSPHORUS 3.2 mg/dL (2.7-4.5); POTASSIUM 4.8 mmol/L (3.5-5.1)
[2019-05-03] MEDS: MORPHINE IV PRN ×3 (05:57→16:54)
[2019-05-03] MEDS: NS 1,000 ML IV SCH (06:03)
[2019-05-03] MEDS: ZYVOX PO SCH ×2 (06:17→17:56)
[2019-05-03] MEDS ORDERED: D50W SYRINGE IV PRN (06:30)
--- NOTE | 2019-05-03 07:21 | PROGRESS NOTE ---
DATE: 05/03/2019 SUBJECTIVE: The patient had some low blood pressures overnight in the 90s. The patient was also found to have hyperkalemia postoperatively, and had treatment of his hyperkalemia. The patient is postop day 1 from cystoscopy, bladder biopsy, bilateral retrograde pyelograms, left ureteroscopy, left ureteral stent placement. By General Surgery, the patient underwent debridement of his back wound. Overall, the patient is doing well this morning. His catheter has been draining well with clear-yellow urine. He has occasional frequency and spasms of the bladder. The patient is on Levsin, which seems to be helping. Denies any significant flank or abdominal pain. OBJECTIVE: Vital Signs: Temperature 97.9 degrees, heart rate 96, blood pressure 104/61, oxygen saturation 95% on room air. General: No acute distress. Resting comfortably in bed. Alert and oriented x3. Respiratory: Good respiratory effort without audible wheezing or rales. Abdomen: Soft, nontender, nondistended. No suprapubic tenderness. No CVA tenderness. : The patient has urethral catheter in place, draining clear-yellow urine. Musculoskeletal: Evidence of neck contracture. LABORATORY DATA: White blood cell count 3.7, hemoglobin 10.0, hematocrit 32.1, platelets 127,000. Sodium 131, potassium 4.8, chloride 101, bicarb 19, BUN 28, creatinine 2.3, glucose 146. ASSESSMENT AND PLAN: Mr. Sheehan is a 58-year-old with hyperlipidemia, hypertension, history of oropharyngeal cancer, bipolar depression, and dementia, who presents in consultation regarding left hydronephrosis. The patient was taken to the operating room yesterday for cystoscopy, bilateral retrograde pyelograms, left ureteroscopy, bladder biopsies, and placement of left ureteral stent. The patient overall seems to be doing well. He is having some spasms in his bladder, likely from the biopsies as well as placement of the stent. The patient's renal function continues to improve. Creatinine 2.3 from 2.6 yesterday. He is making good urinary output. He had an episode of hypotension overnight. Uncertain what drove this. The patient did receive medications for hyperkalemia, which may have decreased his blood pressure some. Blood pressure seems to be responding. Will continue on Levsin and Flomax to assist with discomfort from the stent. Will keep indwelling catheter in at least another 2 days, and monitor downtrending of his creatinine. Likely can be removed prior to discharge. Continue on IV antibiotics for a wound per General Surgery. Will continue to monitor from a urologic standpoint. Please call with questions or concerns. cc: Yimi Da Silva MD MTDMoody
--- NOTE | 2019-05-03 07:32 | INFECTIOUS DISEASE PROGRESS NO ---
DATE: 05/03/2019 PRESENT ILLNESS: The patient had a back abscess drained previously, and yesterday Dr. Arias did a debridement of the back wound. The patient also yesterday had placement of a ureteral stent by Dr. Da Silva, and also 2 bladder biopsies yesterday by Dr[address] Da Silva also. MEDICATIONS: This is day 4 of a combination of cefepime and Zyvox. PHYSICAL EXAMINATION: Vital Signs: Temperature 97.9 degrees, pulse 96, respirations 14, and blood pressure 104/61. General: This is an ill-appearing middle-aged male. He is in no acute distress. Head/eyes/ears/nose/throat: He can hear my spoken words and see near objects. He does not have any white patches in his mouth. Neck: The patient's neck is bent forward. Back: The patient's wound was debrided yesterday by Dr. Arias. The wound shows some bleeding. There is no purulence, and no necrotic tissue present. Lungs: Clear to auscultation. Cardiovascular: Heart rate is regular. Abdomen: Soft and nontender. Neurologic: The patient is alert. He can move his extremities. He talks in a coherent fashion. LABORATORY AND RADIOLOGY STUDIES: The patient's CBC shows a white count of 3710, hemoglobin 10, platelet count 127,000 and creatinine is 2.3. GFR is 29. There is no radiographic study present at this time. ASSESSMENT AND PLAN: Regarding the patient's back abscess, it was debrided yesterday by Dr. Arias. Regarding the patient's hydronephrosis and thickened bladder, stent was placed yesterday by Dr. Da Silva and biopsies were taken. I plan to continue with the current antibiotics namely cefepime and Zyvox. COMORBIDITIES: The patient had oropharyngeal cancer. He also has dementia and a large dorsal kyphosis. The patient had developed renal failure, but his kidney function is improving. cc: Jenaro De Dios MD
[2019-05-03] MEDS: LACTULOSE PO SCH ×2 (10:02→20:09)
[2019-05-03] MEDS: HEPARIN SUBQ SCH ×3 (10:02→20:09)
[2019-05-03] MEDS: DEPAKENE LIQUID PO SCH ×5 (10:02→20:09)
[2019-05-03] MEDS: MIRALAX PO SCH ×2 (10:02→19:59)
[2019-05-03] MEDS: SEROQUEL PO SCH ×3 (10:03→20:08)
[2019-05-03] MEDS: COLACE PO SCH (10:03)
[2019-05-03] MEDS: BUSPAR PO SCH ×4 (10:03→20:09)
[2019-05-03] MEDS: MAXIPIME 1 GM in NS 50 ML IV SCH (10:03)
[2019-05-03] MEDS: ZYRTEC PO SCH (10:03)
--- NOTE | 2019-05-03 10:03 | Diag Imaging Result Doc PS360 ---
EXAM: RETROGRADES 2 OR 3 FILMS 05/02/2019 HISTORY: BILAT RETROGRADES TECHNIQUE: Retrograde pyelogram, 19 images COMMENT: There is free retrograde flow of contrast in the right ureteral orifice into the collecting system which drains appropriately. There are no filling defects on the right. The left ureter is distended as is the collecting system. A stent was placed at the termination of the study by Dr. D aSilva. IMPRESSION: Stricture or obstruction of the distal left ureter. Left ureteral stent placement. Electronically signed by Zenon Shaikh 05/03/2019 10:00 AM
[2019-05-03] MEDS: DULCOLAX PR SCH (10:04)
--- NOTE | 2019-05-03 18:39 | PROGRESS NOTE ---
DATE: 05/03/2019 INTERVAL HISTORY: No acute events overnight. He was slightly tachycardic, but he was normotensive. He has not had any more fever episodes. His hyperkalemia has resolved. His kidney function continues to improve. SUBJECTIVE: He denies any chest pain, shortness of breath, nausea, vomiting, abdominal pain. He has had regular bowel movements. We discussed about improving kidney function. I answered all of his questions. VITALS: Currently temperature 98.1 degrees, pulse 96, respiratory 14, blood pressure 150/65, saturating 97% room air. Input and output is -10 L since admission. PHYSICAL EXAMINATION: General: Not in any acute distress. Mouth: Oral cavity is moist. Lungs: Air entry bilaterally equal. No wheeze, rhonchi, crackles. Cardiovascular: S1, S2 normal. No murmur or gallop. Abdomen: Soft, nontender. Genitourinary: He has a urine catheter. Extremities: No lower extremity edema. Skin: He has a left-sided chest port. He has torticollis. On the back he has about 3 x 3 cm wound on the left side of the infrascapular region with surrounding mild edema and erythema. There is no pus. It does not appear acutely inflamed. Neurologic: He is alert and oriented x3. LABS: Suggestive of WBC of 3.71, hemoglobin of 10, platelet count of 127,000. He has hyponatremia, improving BUN and creatinine. Microbiology, no positive data. IMAGING: No new imaging. ASSESSMENT AND PLAN: 1. Back abscess, status post incision and drainage with debridement of skin, muscle and abscess cavity on 05/02/2019. Continue cefepime and linezolid as per Infectious Disease recommendation. I will follow the blood count closely considering his leukopenia and thrombocytopenia. 2. Acute kidney injury on likely chronic kidney disease. He had developed chronic kidney disease secondary to chemotherapy. His current acute kidney injury was likely post obstructive renal failure due to stricture of the left distal ureter. He is status post double-J stent on 05/02/2019. Continue to monitor kidney function. Currently appears euvolemic examination and his hyperkalemia has resolved. I will keep him on Lokelma. 3. Left-sided hydronephrosis. Status post cystoscopy, retrograde pyelogram, and double-J stent on the left. Urology team on board. I will appreciate Sanchez catheter management. 4. History of head and neck cancer, status post chemo and radiation which he completed in 2018. He has torticollis and kidney dysfunction secondary to that. 5. Bipolar mood disorder. We will continue his home medications of buspirone, clonazepam, quetiapine, valproic acid. 6. Disposition. The patient would not be able to go to [facility] tomorrow as informed by the [employer] team since tomorrow is the new year's day and so we will plan discharging him on 05/05/2019. Plan of care discussed with him. His questions have been answered. cc: Nish Vasquez MD
[2019-05-03] MEDS: FLOMAX PO SCH ×2 (19:58→20:09)
[2019-05-03] MEDS: OXY IR PO PRN (20:02)
[2019-05-03] MEDS: DUONEB (A & A) INH PRN (21:34)
[2019-05-03] MEDS ORDERED: TYLENOL PO PRN (22:00)
[2019-05-04 05:18] LABS: BASO# 0.06 X1000 (0.0-0.2); BASO% 1.4 % (0.0-0.8); EOS# 0.77 X1000 (0.0-0.7); EOS% 17.6 % (0.0-10.0); HEMATOCRIT 33.4 % (42.0-52.0); HEMOGLOBIN 10.1 g/dL (14.0-18.0); LYMPH# 0.85 X1000 (1.2-3.4); LYMPH% 19.4 % (20.5-51.1); MCH 29.7 PG (27-31); MCHC 30.2 g/dL (33-37); MCV 98.2 FL (81-99); MONO# 0.51 X1000 (0.11-0.59); MONO% 11.6 % (1.7-9.3); MPV 8.4 FL (7.4-10.4); NEUT# 2.19 X1000 (1.4-6.5); PLT 143 X1000 (130-400); RDW 13.4 % (11.5-14.5); WBC 4.38 X1000 (4.8-10.8)
[2019-05-04 05:44] LABS: ALBUMIN 3.3 g/dL (3.5-5.0); PHOSPHORUS 2.9 mg/dL (2.7-4.5); POTASSIUM 5.4 mmol/L (3.5-5.1)
[2019-05-04] MEDS: ZYVOX PO SCH ×2 (06:33→17:43)
[2019-05-04] MEDS: OXY IR PO PRN ×3 (06:33→19:43)
--- NOTE | 2019-05-04 06:52 | INFECTIOUS DISEASE PROGRESS NO ---
DATE: 05/04/2019 PRESENT ILLNESS: Patient has a back abscess which has been drained and debrided. The patient's abscess looks much better. Also, his renal function is continuing to improve. MEDICATIONS: This is day 5 of treatment with cefepime and Zyvox. PHYSICAL EXAMINATION: Vital Signs: Temperature is 98.3 degrees, pulse 93, respirations 18, blood pressure 122/66. General: This is an ill-appearing middle-aged male. He is in no acute distress. Head/eyes/ears/nose/throat: He can hear my spoken words and see near objects. I did not notice any white coating of his tongue. Neck: Patient has torticollis. Lungs: Clear to auscultation. Cardiovascular: Heart rate is regular. Abdomen: Soft and nontender. Back: I removed the dressing from the patient's wound on back. It is just now a pink color. There is no purulence and each day it becomes smaller and smaller. The patient has a large dorsal kyphosis. LAB AND RADIOLOGY: I did not see any radiographic study ordered for today. His laboratory studies for today show a CBC with a white count of 4380, hemoglobin 10.1 and platelet count 143,000. Creatinine is down to 2 and the GFR is up to 34. Repeat blood cultures are negative. ASSESSMENT AND PLAN: As regarding the patient's back abscess I think tomorrow, which would be May 05, the antibiotics can be discontinued, and I do not think he will need any other antibiotics when he goes to the shelter. I will put on the patient's order sheet that the antibiotics will be discontinued tomorrow. COMORBIDITIES: The patient had oropharyngeal cancer. He also has dementia and dorsal kyphosis. The patient also has torticollis. I am signing off the patient's case today. As I mentioned above, I have ordered that the patient's antibiotics to be discontinued tomorrow on May 05. I do not think he will need any more antibiotics. cc: Jenaro De Dios MD MTDD
[2019-05-04] MEDS: MAXIPIME 1 GM in NS 50 ML IV SCH ×2 (08:16→17:47)
[2019-05-04] MEDS: DEPAKENE LIQUID PO SCH ×4 (08:19→22:28)
[2019-05-04] MEDS: SEROQUEL PO SCH ×2 (08:19→22:28)
[2019-05-04] MEDS: LACTULOSE PO SCH ×4 (08:19→22:48)
[2019-05-04] MEDS: BUSPAR PO SCH ×3 (08:20→22:28)
[2019-05-04] MEDS: ZYRTEC PO SCH (08:20)
[2019-05-04] MEDS: HEPARIN SUBQ SCH ×2 (08:20→22:28)
[2019-05-04] MEDS: MIRALAX PO SCH ×2 (08:27→22:28)
[2019-05-04] MEDS: DULCOLAX PR SCH (08:28)
--- NOTE | 2019-05-04 08:56 | PROGRESS NOTE ---
DATE: 05/04/2019 Mr. Sheehan is a 58-year-old, white male, who is now postop day 2 from debridement of a soft tissue infection, midback. I removed the packing yesterday. His wound is clean. It needs to be dressed daily with damp-to-dry normal saline dressings per our nursing staff. As far as this surgical wound, he can be discharged home when medically appropriate, with followup in our outpatient offices. cc: Tracee Arias MD
[2019-05-04] MEDS: DUONEB (A & A) INH PRN ×2 (09:30→15:12)
--- NOTE | 2019-05-04 10:56 | PROGRESS NOTE ---
DATE: 05/04/2019 INTERVAL HISTORY: No acute events overnight. SUBJECTIVE: Mr. Sheehan denies any new complaints. We discussed about physical exam findings and possibly discharge tomorrow. Mr. Sheehan wants me to change his diet to a softer chopped food and was requesting to take the urine catheter out and I informed him that I would confirm with the urologist before removing the urine catheter. He had a bowel movement in the morning time. VITAL SIGNS: Temperature of 97.9 degrees, pulse 88, respiratory rate 15, blood pressure 102/63, saturating 93% on room air. PHYSICAL EXAMINATION: General: Not in acute distress. HEENT: Oral cavity is moist. Lungs: Air entry bilaterally equal. No wheeze, rhonchi, or crackles. Cardiovascular: S1, S2 normal. No murmur, rub or gallop. Abdomen: Soft, nontender. Genitourinary: He has urine catheter. Extremities: No lower extremity edema. Chest: He has a left-sided chest port. Neck: He has torticollis. Skin: On my previous examination he had a 3 x 3 cm wound on the left side of the infrascapular region with surrounding mild erythema and edema of his back abscess which was drained. Neurologic: He is alert and oriented x3. LABORATORY DATA: His CBC is unremarkable. BMP just has a potassium of 5.4, which I will repeat tomorrow. ASSESSMENT AND PLAN: 1. Back abscess status post incision and drainage with debridement of skin, muscle and abscess cavity on May 02. Continue cefepime and linezolid as per Infectious Disease recommendation until tomorrow. His thrombocytopenia has resolved. 2. Acute kidney injury on likely chronic kidney disease that he had developed secondary to chemotherapy in the past. His current acute kidney injury is likely post obstructive renal failure due to stricture of left distal ureter, status post double-J stent on May 02. Continue to monitor kidney function and appreciate Urology's recommendation about removing Sanchez catheter. Continue Lokelma for hyperkalemia. He would need outpatient Urology followup for stent management. He underwent cystoscopy, retrograde pyelogram and double-J stent placement for left hydronephrosis. 3. History of head and neck cancer status post chemoradiation which he completed in year 2018. He has torticollis and kidney dysfunction secondary to that. 4. Bipolar mood disorder. Continue home buspirone, clonazepam, quetiapine, and valproic acid. 5. Disposition. Planning discharge to [facility] on 05/05/2019. His questions have been answered. cc: MD KRISTIE Higgins
--- NOTE | 2019-05-04 12:39 | NEPHROLOGY PROGRESS NOTE ---
DATE: 05/04/2019 SUBJECTIVE: No new complaints. OBJECTIVE: Vital Signs: Blood pressure 108/59, heart rate 91, respirations 14, afebrile. General: No acute distress. Skin: Warm and dry. Neck: Neck veins are not distended. Heart: Regular. No gallops. Lungs: Equal. No crackles. Abdomen: Soft, nontender. Bowel sounds are present. Extremities: No edema, clubbing, or cyanosis. IMPRESSION: Acute kidney injury secondary to obstruction. Progressive daily improvement. Creatinine 2.0 today. Mild hyperkalemia that does not require treatment. cc: Daniel Mcgovern MD
--- NOTE | 2019-05-04 17:51 | DISCHARGE SUMMARY ---
ADMISSION DATE: 04/28/2019 DISCHARGE DATE: 05/05/2019 DISCHARGE DISPOSITION: Back to [facility]. DISCHARGE CONDITION: Hemodynamically stable. He is alert and oriented. Denies any new complaints. He was provided with detailed discharge instructions including following up with general surgeon as well as urologist. He understood it. DISCHARGE DIAGNOSES: 1. Back abscess. 2. Acute kidney injury on likely chronic kidney disease. 3. 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 4. Essential hypertension. 5. Hyperkalemia. 6. Leukopenia. OTHER DIAGNOSES: 1. History of head and neck cancer, status post chemoradiation which he completed in 2018. 2. History of torticollis and kidney dysfunction due to chemoradiation. 3. Bipolar mood disorder. VITALS: At the time of current dictation, temperature 97.4 degrees, pulse 91, respiratory rate 14, blood pressure 108/59, saturating 95% on room air. PHYSICAL EXAMINATION: He is not in acute distress. Oral cavity is moist. Air entry bilaterally equal. No wheeze or crackles. S1, S2 normal. No murmur or gallop. Abdomen: Soft, nontender. No lower extremity edema. He has a left-sided chest port. He has torticollis. He has a 3 x 3 cm wound on the left side of his infrascapular region on the back with mild surrounding erythema and edema which was previously drained. CONSULTATIONS DURING HOSPITAL ADMISSION: 1. Nephrology, Dr. Mcgovern, for acute kidney injury. 2. General surgeon, Dr. Arias, for back abscess. 3. Urology, Dr. Da Silva, for left hydronephrosis. PROCEDURES DURING HOSPITAL ADMISSION: 1. On 05/02/2019, patient underwent debridement of skin, subcutaneous tissue, and muscle, abscess cavity of midback. 2. On 05/02/2019, the patient underwent cystoscopy with bilateral retrograde pyelogram, left ureteroscopy, left ureteral stent placement, bladder biopsy, and fulguration of bleeding. HOSPITAL COURSE SUMMARY: Mr. Sheehan is a 58-year-old, man, who had initially presented on 04/28/2019, with chief complaint of a spot on the back. When he presented to the emergency room, he was found to have an abscess on the back. He underwent incision and drainage in the emergency room, and cultures were obtained and sent to the lab. General Surgery was consulted. However, on admission, the patient was found to have acute kidney injury with creatinine of 6.1, which was higher than his baseline creatinine, so Nephrology was consulted. The patient was admitted for further management. He was started on antibiotics for back abscess and he also underwent repeat debridement on May 02, which he tolerated well. At the time of discharge, he has been off antibiotics with his abscess healing well and he should have outpatient followup with General Surgery team. With regards to acute kidney injury on presentation, it was thought to be secondary to his use of Bactrim and meloxicam outpatient. However, he was also found to have left-sided hydronephrosis and Urology was consulted, and the patient underwent placement of left-sided double-J ureteric stent, following which his kidney function was resolving. He was advised to have a followup basic metabolic panel done outpatient, and follow up with Urology and Nephrology outpatient. He also had intermittent hyperkalemia. However, his kidney function was improving at the time of discharge. He was advised to have a low-potassium diet. DISCHARGE MEDICATIONS: 1. Atorvastatin 10 mg at nighttime. 2. Buspirone 20 mg t.i.d. 3. Docusate 100 mg b.i.d. 4. Valproic acid 250 mg 4 times a day. 5. Escitalopram 20 mg daily. 6. Famotidine 20 mg b.i.d. 7. Furosemide 40 mg daily. 8. Triamcinolone 0.1% cream. 9. Promethazine 12.5 mg every 4 hours as needed. 10. Quetiapine 25 mg in the morning time and 100 mg at nighttime. 11. Tizanidine 2 mg every 6 hours as needed for muscle spasm. 12. Levocetirizine 5 mg daily. 13. Clonazepam 0.5 mg b.i.d. as needed for anxiety, 10 tablets have been prescribed. 14. Hyoscyamine 1.25 mg every 6 hours as needed for abdominal spasm due to ureteric stent. 15. [place] 7.5 one tablet every 6 hours as needed for pain, 15 tablets have been prescribed. MICROBIOLOGY DURING HOSPITAL ADMISSION: Blood culture, urine culture, and wound culture did not have any growth. LABORATORY: At the time of this dictation, WBC 4.3, hemoglobin 10.1, platelets 143,000. Potassium 5.4, BUN 20, creatinine 2. SIGNIFICANT IMAGING DURING HOSPITAL ADMISSION: 1. Renal ultrasound on presentation had overly distended urinary bladder with dilatation of the left collecting system. 2. Chest x-ray on April 28, had mild central vascular prominence. Abdomen and pelvis CT had left hydronephrosis, thickening of the wall of the urinary bladder which could indicate cystitis, moderate constipation, basilar bronchiectasis, and likely scarring. 3. Renal ultrasound on May 01, had cystic fluid collection in the left renal collecting system consistent with persistent hydronephrosis. 4. Chest x-ray on May 01, had significant improvement from prior. DISCHARGE INSTRUCTIONS: 1. Follow up with general surgeon within 7 days. 2. Follow up with Urology within 7 to 10 days. 3. Follow up with Nephrology within 7 days. 4. Follow up repeat potassium and basic metabolic panel with renal profile within 3 days after discharge. TIME SPENT: More than 30 minutes of time was spent discharging this patient. Plan of care was discussed with him. His questions were answered. cc: Nish Vasquez MD MTDMoody
[2019-05-04] MEDS: FLOMAX PO SCH (22:28)
[2019-05-05] MEDS: LOKELMA POWDER PACKET PO SCH (00:43)
[2019-05-05] MEDS: ZYVOX PO SCH (06:00)
[2019-05-05] MEDS: MAXIPIME 1 GM in NS 50 ML IV SCH (06:00)
[2019-05-05 06:16] LABS: ALBUMIN 3.5 g/dL (3.5-5.0); CALCIUM 9.6 mg/dL (8.8-10.2); CREATININE 1.7 mg/dL (0.7-1.2); PHOSPHORUS 2.8 mg/dL (2.7-4.5); POTASSIUM 5.2 mmol/L (3.5-5.1)
--- NOTE | 2019-05-05 09:14 | PROGRESS NOTE ---
DATE: 05/05/2019 SUBJECTIVE: No acute events overnight. The patient's catheter has been draining well with 2 L recorded. Vital signs are stable. The patient states that he is tolerating p.o. intake without nausea or vomiting. He asked about removing his catheter this morning. He states he has been having some spasms of the bladder. Denies any leakage around the catheter. OBJECTIVE: Vital Signs: Temperature 98.1 degrees, heart rate 82, blood pressure 113/70, oxygen saturation 94% on room air. General: No acute distress. Resting comfortably in bed. Alert and oriented x3. Respiratory: Good respiratory effort, without audible wheezing or rales. Abdomen: Soft, nontender, nondistended. : No suprapubic tenderness. No CVA tenderness. Urethral catheter in place, draining clear-yellow urine. Musculoskeletal: Evidence of contracture of the neck with head tilted to the left. LABORATORY DATA: Sodium 139, potassium 5.2, chloride 105, bicarb 21, BUN 18, creatinine 1.7, glucose 104. ASSESSMENT AND PLAN: Mr. Sheehan is postop day 3 from cystoscopy, bladder biopsy, bilateral retrograde pyelograms, left diagnostic ureteroscopy, and left ureteral stent placement. The patient has been doing well. His urine output has been strong with 2 liters recorded. Creatinine has downtrended to 1.7 today. Overall, the patient seems to be doing well. Will plan to remove his catheter today. Would obtain postvoid residual after he urinates. If the patient is able to keep a low postvoid residual, would likely discharge home. The patient should be sent home with Flomax to ensure continued adequate emptying. It may help with his bladder spasms as well. Talked with him this morning regarding management of his left ureteral narrowing versus stricture. I think this is related to his bladder itself. If the patient desires, we could consider cystoscopy and ureteral dilation versus a ureteral reimplant. I think with his health status, that either removal of the stent versus ureteral dilation may be the better course of action. However, will have an open discussion in the office. Will continue to monitor from a urologic standpoint while inpatient. If any issues arise, please give us a call. cc: MD KRISTIE Valdez
--- NOTE | 2019-05-05 09:44 | PROGRESS NOTE ---
DATE: 05/05/2019 No overnight events. Mr. Sheehan denies any new complaints. Denies chest pain, shortness of breath. Denies any choking episode, nausea, vomiting, abdominal pain. VITALS: Temperature 98.1 degrees, pulse 80, respiratory rate 19, blood pressure 130/70, saturating 95% room air. PHYSICAL EXAMINATION: Not in any acute distress.HEENT: Oral cavity is moist. Lungs: Air entry bilaterally equal. No wheeze, rhonchi, crackles. Cardiovascular: S1, S2 normal. No murmur or gallop. Abdomen: Soft nontender. His urine catheter has been removed. He does not have lower extremity edema. He has a left-sided chest port. He has torticollis. His back wound is dressed. LABS: His BMP suggests potassium of 5.2. No new microbiological or imaging data. ASSESSMENT AND PLAN: 1. Back abscess status post incision and drainage and antibiotic course. 2. Acute kidney injury likely on chronic kidney disease due to use of Bactrim, meloxicam as well as left ureteric stenosis status post double-J stent. 3. History of head and neck cancer status post chemoradiation in 2017 or 2018. 4. Bipolar mood disorder. PLAN: His kidney function is coming to normal. Urology team has removed a Sanchez catheter. If the patient is able to make urine by himself he could be discharged to rehab. He was advised to have a follow up with surgeon doctor and receive local wound care. Follow up with repeat electrolytes and kidney function 3 days as well as follow up with urologist. TIME SPENT: More than 30 minutes time was spent discharging this patient. All of his questions have been answered. Addendum: He needs to be on Tamsulosin 0.4 mg every night. He was not able to void after removing Sanchez catheter. So, catheter was replaced and patient is discharged with the Sanchez catheter. cc: MD KRISTIE Higgins
[2019-05-05] MEDS: LACTULOSE PO SCH (10:32)
[2019-05-05] MEDS: DEPAKENE LIQUID PO SCH ×2 (10:32→12:54)
[2019-05-05] MEDS: SEROQUEL PO SCH (10:32)
[2019-05-05] MEDS: BUSPAR PO SCH ×2 (10:32→15:17)
[2019-05-05] MEDS: DULCOLAX PR SCH (10:32)
[2019-05-05] MEDS: MIRALAX PO SCH (10:32)
[2019-05-05] MEDS: ZYRTEC PO SCH (10:33)
[2019-05-05] MEDS: HEPARIN SUBQ SCH (10:33)
[2019-05-05 12:17] VITALS: BP 115/66
[2019-05-05] MEDS: OXY IR PO PRN (15:18)
--- NOTE | 2019-05-05 15:51 | PROVIDER PROGRESS NOTE ---
Progress Note Subjective: patient voices feeling better. He has no uremic complaints. He is wanting to know when he can get his Sanchez catheter out. Objective: vitals 98.3, pulse 88, respirations 18, blood pressure 110/67, 02 sat 93% on room air. General: white male lying in bed in no acute distress HEENT: normocephalic, atraumatic, pupils equal and reactive. Mucous membrane dry. Skin: warm and dry. Dressing to the back covered. Neck: neck is in a forward position unable to determine JVD. Cardiovascular: S1S2, regular rate and rhythm. No murmurs or gallops noted. Respiratory: clear anteriorly with equal air entry. Abdomen: soft, nontender, nondistended. Bowel sounds active. : non-inspected with Sanchez in place clear yellow urine noted. Extremities: trace bilateral lower extremity edema. Neurological: alert and oriented to person, place, and time. Labs: sodium 139, potassium 5.2, chloride 105, carbon dioxide 21, BUN 18, creatinine 1.7. Intake 1384, output 2080. Impression: Acute kidney injury secondary to obstruction. Creatinine continues to improve. Today it is 1.7. We will sign off. We will plan to follow up with him in the office. Ok for discharge from our perspective. Blood pressure. In target. Fluid volume. Euvolemic on exam. Anemia. Stable. Electrolytes and acid base balance. Potassium 5.2 which has improved from yesterday. No indications for intervention at this time. Nutrition. Adequate. Ambulation. Up with therapy. Medication review
== END 2019-05-05 17:04 ==
LOC: ED 10:03 → SUATTDRO 17:23 → EDIPHOLD 17:23 → 1N 21:02 → UNDODISIN 05-05 15:31
PROVIDERS: ATTEND Internal Medicine

== ENCOUNTER 2019-05-30 12:56 | Inpatient (IN) ==
--- NOTE | 2019-05-30 14:21 | PROVIDER DOCUMENTATION ---
This chart was entered by Clementina Shukla Scribe, acting as scribe for Mary Lou Coles MD. HPI-General Adult - General Stated Complaint: abnormal labs Time Seen by Provider: 05/30/19 13:07 Source: patient Allergies/Adverse Reactions: Patient Allergies Allergy/AdvReac Type Severity Reaction Status Date / Time aprepitant [From Emend] Allergy Unknown Verified 05/30/19 14:53 fosaprepitant [From Emend] Allergy Unknown Verified 05/30/19 14:53 Home Medications: Home Medication List Medication Instructions Recorded Confirmed Last Taken Type Atorvastatin Calcium 10 mg PO HS 04/28/19 05/30/19 05/29/19 09:00 History Buspirone [Buspar] 20 mg PO TID 04/28/19 05/30/19 05/30/19 09:00 History Docusate Sodium [Colace] 100 mg PO BID 04/28/19 05/30/19 05/30/19 09:00 History Escitalopram Oxalate 20 mg PO DAILY 04/28/19 05/30/19 05/30/19 09:00 History Famotidine 20 mg PO BID 04/28/19 05/30/19 05/30/19 09:00 History Furosemide [Lasix] 1 tab PO Q24HR PRN 04/28/19 05/30/19 05/05/19 09:00 History Levocetirizine Dihydrochloride 5 mg PO DAILY 04/28/19 05/30/19 04/28/19 09:00 History [Xyzal] 5 mg Promethazine HCl 12.5 mg PO Q4H PRN PRN 04/28/19 05/30/19 05/25/19 10:20 History Quetiapine Fumarate 2 tab PO HS 04/28/19 05/30/19 05/29/19 09:00 History Tizanidine HCl 2 mg PO Q6H PRN PRN 04/28/19 05/30/19 05/30/19 08:00 History Triamcinolone 0.1% Cr [Kenalog 15 gm TOP BID PRN 04/28/19 05/30/19 05/30/19 08:00 History 0.1% Cream] Valproic Acid [Depakene Liquid] 250 mg PO 4XDAY 04/28/19 05/30/1905/30/20 08:00 History Hydrocodone/Acetaminophen [[place] 1 ea PO Q6H PRN PRN #15 tab 05/04/19 05/30/19 05/30/19 08:00 Rx 7.5-325 Tablet] Hyoscyamine [Levsin] 0.125 mg PO Q6H PRN PRN tab 05/04/19 05/30/19 05/25/19 09:00 Rx Tamsulosin [Flomax] 0.4 mg PO QHS cap 05/05/19 05/30/19 05/29/19 09:00 Rx Clonazepam [Klonopin] 0.5 mg PO TID 05/30/19 05/30/19 05/29/19 20:00 History - History of Present Illness -Gen Adult Nature of Presenting Problems: 58yom presents to ED by EMS from [facility] where pt lives cc abnormal labs and feeling 'yucky' for 3 days. Pt reports he had a recent stent put in right kidney. Pt was admitted inpatient 04/28/19 for Sepsis. Pt is nontoxic upon exam. Pt has hx of Throat Cancer.Vague historian Location of Pain/Injury: reports: generalized Quality of Pain: reports: aching Severity: reports: mild Onset/Duration: reports: 3 days ago Timing: reports: still present Context/Activities at Onset: reports: light activity Modifying Factors: improves with: nothing Associated Symptoms: reports: fatigue Similar Symptoms Previously?: Yes Recently seen or treated by another doctor?: Yes (seen in ED 04/28/19) Review of Systems - Adult - REVIEW OF SYSTEMS - ADULT Constitutional: reports: see HPI, fatique, other (abnormal labs). denies: chills, fever Eyes: reports: no symptoms reported Ears, Nose, Mouth & Throat: reports: no symptoms reported Cardiovascular: reports: see HPI. denies: chest pain, palpitations Respiratory: reports: no symptoms reported Gastrointestinal: reports: see HPI. denies: diarrhea, nausea, vomiting Genitourinary: reports: no symptoms reported Musculoskeletal: reports: no symptoms reported Integumentary: reports: no symptoms reported Neurological: reports: no symptoms reported Psychiatric: reports: no symptoms reported Endocrine: reports: no symptoms reported Hematologic/Lymphatic: reports: no symptoms reported Allergic/Immunologic: reports: no symptoms reported All Other Systems: Reviewed and Negative Past History - Adult - PAST MEDICAL HISTORY-ADULT Review of Records: reports: Old Records Reviewed, Nursing Assessment Review, Medications Reviewed, Social history reviewed & non-contributory. Major Childhood Illnesses: reports: denies history Cardiovascular: reports: denies history Respiratory: reports: denies history Gastrointestinal: reports: denies history Obstetrical/Gynecological: reports: denies history Genitourinary: reports: denies history Musculoskeletal: reports: denies history Neurological: reports: denies history Endocrine/Immune: reports: denies history Other Conditions: reports: denies history - IMMUNIZATION STATUS Childhood Immunizations: See Nurse Assessment Flu Vaccine: See Nurse Assessment - FAMILY HISTORY Family History: reviewed, not pertinent Physical Exam-General - PHYSICAL EXAM-ADULT Initial Vital Signs Reviewed: Yes - CONSTITUTIONAL General Appearance: appears well, alert. negative: anxious, combative - EYES Eyes: PERRL/EOMI. negative: photophobia - HEAD, EARS, NOSE, MOUTH & THROAT HENMT: normocephalic/atraumatic. negative: moist mucous membranes (dry), angioedema - NECK Neck: other (neck flex toward chest due to hx of weakness due to chemo) - RESPIRATORY Respiratory: chest non-tender, lungs clear, no respiratory distress, no accessory muscle use. negative: rales, rhonchi - CARDIOVASCULAR Cardiovascular: normal peripheral pulses, regular rate, rhythm. negative: bradycardia, tachycardia - GASTROINTESTINAL (ABDOMEN) Abdominal Exam: non tender, soft. negative: rebound - MUSCULOSKELETAL Back Exam: kyphosis - SKIN Integumentary: warm/dry, other (4x4cm ulceration with purulence and surrounding erythema on right upper back). negative: jaundice, rash - PSYCHIATRIC Psych/Mental Status: normal mood/affect, oriented x 3. negative: anxious, disheveled Progress - PLAN OF CARE/RESULTS Progress/Plan/Lab Results: Patient with GILBERTO on CKD. He has had this before recently at the end of Apr. Patient likely has decreased PO intake due to hx of throat cancer. Might need eval for PEG if cannot keep from getting GILBERTO. He also papears to had a pressure ulcer on his back likely from his poor posture due to neck muscle weakness from chemo. Also has UTI. Spoke to BRENDA Squires for hospitalist who accepted patient for admission. Further orders to be placed per their team. Result Diagrams: 05/30/19 14:43 05/30/19 14:43 - XRAY 1 XRAY: Bilateral XRAY Study: Chest Impression: See EMR Report (IMPRESSION: Stable chest. Electronically signed by Zenon Shaikh 05/30/2019 3:10 PM) - CONSULTS/PCP/HOSPITALIST Notification #1 *Consult/PCP/Hospitalist*: Tavia/FILE CONVERSION OPERATOR Time Discussed: 16:28 Consult Disposition: Admit Departure - Departure Date of Disposition Decision: 05/30/19 Time of Disposition Decision: 16:13 DIAGNOSIS: Acute on chronic renal failure, UTI (urinary tract infection), Cellulitis of back, Pressure ulcer, back, upper Disposition: ADMITTED INPATIENT 09 Certified Medical Emergency: Emergent Condition: Stable - Critical Care Note This patient required my direct & personal management of CC.: No Attestation - Physician/ [place] Attestation Patient care was provided by Advanced Practice Provider:: No The physician spent face to face time with patient:: Yes Advanced Practice Provider documentation review:: Supervising physician onsite and consulted in the evaluation and care of this patient. The physician did have a face to face encounter with the patient. This chart was documented by the indicated scribe, (Clementina Shukla Scribe) and accurately reflects the services I performed and decisions made by me, Mary Lou Coles MD, as attested by the provider's signature.
[2019-05-30 15:04] LABS: BASO# 0.02 X1000 (0.0-0.2); BASO% 0.3 % (0.0-0.8); EOS# 0.79 X1000 (0.0-0.7); HEMATOCRIT 31.3 % (42.0-52.0); HEMOGLOBIN 9.7 g/dL (14.0-18.0); IMM GRAN# 0.06 X1000 (0.0-0.04); IMM GRAN% 0.8 % (0.0-0.5); LYMPH# 0.89 X1000 (1.2-3.4); LYMPH% 11.3 % (20.5-51.1); MCV 93.7 FL (81-99); MONO# 0.84 X1000 (0.11-0.59); MONO% 10.7 % (1.7-9.3); MPV 8.9 FL (7.4-10.4); NEUT# 5.28 X1000 (1.4-6.5); NEUT% 66.9 % (42.2-75.2); PLT 205 X1000 (130-400); RBC 3.34 XMIL (4.7-6.1); RDW 14.4 % (11.5-14.5); WBC 7.88 X1000 (4.8-10.8)
--- NOTE | 2019-05-30 15:12 | Diag Imaging Result Doc PS360 ---
EXAM: CHEST-PORTABLE 05/30/2019 HISTORY: ivonne, wound care TECHNIQUE: AP portable semiupright at 1404 COMMENT: Considering differences in technique there has been no significant change since 05/01/2019. IMPRESSION: Stable chest. Electronically signed by Zenon Shaikh 05/30/2019 3:10 PM
[2019-05-30 15:42] LABS: ESTIMATED GFR 13
[2019-05-30 15:47] LABS: AGAP 12; ALB/GLOB RATIO 0.8; ALBUMIN 3.3 g/dL (3.5-5.0); ALKALINE PHOSPHATASE 86 U/L (32-122); BUN 56 mg/dL (8-22); CALCIUM 9.3 mg/dL (8.8-10.2); CHLORIDE 100 mmol/L (98-107); COSMO 287; CREATININE 4.8 mg/dL (0.7-1.2); GLUCOSE 95 mg/dL (70-104); GOT 9 U/L (10-34); GPT < 5 U/L (10-44); POTASSIUM 4.7 mmol/L (3.5-5.1); SODIUM 136 mmol/L (136-145); TCO2 24 mmol/L (25-35); TOTAL BILIRUBIN 0.23 mg/dL (0.20-1.00); TOTAL PROTEIN 7.2 g/dL (6.3-8.3)
[2019-05-30] MEDS ORDERED: NS 1,000 ML IV ONE ×2 (16:13)
[2019-05-30] MEDS ORDERED: NORCO-7.5 PO ONE (16:15)
[2019-05-30 16:28] LABS: URINE SOURCE CLEAN CATCH
[2019-05-30 16:42] LABS: BILIRUBIN URINE NEGATIVE (NEGATIVE); BLOOD URINE MODERATE (NEGATIVE); COLOR ORANGE; GLUCOSE URINE NEGATIVE (NEGATIVE); KETONE URINE NEGATIVE (NEGATIVE); LEUKOCYTES URINE LARGE (NEGATIVE); NITRITE URINE NEGATIVE (NEGATIVE); PROTEIN URINE 100 mg/dL (NEGATIVE); SP GRAVITY URINE 1.013; TURBIDITY URINE TURBID (CLEAR); UROBILINOGEN URINE NORMAL (NORMAL)
[2019-05-30 16:48] LABS: UR EPITHELIAL CELLS <10 /HPF (<10); URINE BACTERIA NEGATIVE /HPF; URINE RBC TNTC /HPF (<10); URINE WBC TNTC /HPF (<10)
[2019-05-30 17:02] LABS: URINE CASTS NONE SEEN; URINE CRYSTALS NONE SEEN; URINE YEAST PRESENT
[2019-05-30 17:03] LABS: URINE SMALL ROUND CELLS NONE SEEN
[2019-05-30] MEDS ORDERED: ROCEPHIN 1 GM in NS 50 ML IV ONE (18:18)
--- NOTE | 2019-05-30 18:21 | Diag Imaging Result Doc PS360 ---
EXAM: CT RENAL STONE SEARCH 05/30/2019 HISTORY: ivonne TECHNIQUE: This exam was performed using automated exposure control, adjustment of mA or kV according to patient size, and/or use of iterative reconstruction technique. COMMENT: The current study is compared with 04/28/2019. There continue to be alveolar opacities in both lower lobes. Some of these are more masslike in appearance particularly in the left lower lobe where there is a denser opacity in the posterior medial costophrenic sulcus and tree-in-bud opacities more widely distributed in the lower lobe posteriorly. A similar appearance is present in the right lower lobe with somewhat more opacification more laterally in the posterior costophrenic sulcus. The possibility of pulmonary edema and pneumonia cannot be excluded. There is no evidence of hydronephrosis on the right. There is hydronephrosis on the left as there was on the previous study. This is actually slightly worse than it was previously. There is a stent present in the renal pelvis on the left which was not previously the case. The urinary bladder is distended. This is worse than on the previous study. The Sanchez catheter which was present previously is no longer present. There is no evidence of bowel obstruction cholelithiasis or abdominal aortic aneurysm. No free fluid is demonstrated. There are bone islands in both femoral heads. There is no evidence of acute bony abnormality. There is severe facet arthropathy on the left at the L5-S1 level. There is scoliosis of the lumbar spine with convexity to the left. IMPRESSION: 1. Probable urinary retention in the bladder. This is probably responsible for the worsened left hydronephrosis despite the presence of a stent. 2. Bilateral lower lobe pulmonary opacities as described. The possibility of early cavitary lesions cannot be excluded. Electronically signed by Zenon Shaikh 05/30/2019 6:18 PM
--- NOTE | 2019-05-30 19:17 | HISTORY AND PHYSICAL ---
CHIEF COMPLAINT: Weakness and abnormal labs. HISTORY OF PRESENT ILLNESS: This is a 58-year-old patient. He has got a history of head and neck cancer which is in remission. I do not think he is getting active treatment, but he is at rehab. He has not been eating and drinking very well since discharge. He was here about a month ago also with kidney dysfunction about the same level. It was thought that was associated with exposure to Bactrim and also he had a ureteral stricture and a stent. He has seen Dr. Da Silva since that time and the stent was supposed to come out this week apparently. His last creatinine was on the and it was 1.8. His creatinine yesterday, I guess random labs were drawn and his creatinine is up to 4.8 with a BUN of 55. It is almost double what it was previously. Repeat labs today confirm the same numbers. His urine has gross pyuria and hemorrhagic component is actually less than 10 squames. In any case the patient was admitted for acute kidney injury. He reports poor appetite, not eating and drinking. No symptoms of dysphagia or odynophagia. He reports a weight loss of about 15 pounds in the last 2 weeks. Denies any nausea, vomiting, or diarrhea. Some fevers and chills. He has had dysuria though for several days. Now purportedly, he says he has lost 15 pounds, which is what is documented on the , but then we have a weight of 180, and then it goes up to 202 and today it is 183, so it really cannot be confirmed. The patient admitted for acute kidney injury, UTI. PAST MEDICAL HISTORY: 1. 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 2. Reported dementia. 3. Hyperlipidemia. 4. Hypertension. 5. Bipolar disorder. PAST SURGICAL HISTORY: 1. He has had a right total knee arthroscopy. 2. Neck biopsy. 3. He had a recent abscess drained on his back. SOCIAL HISTORY: No alcohol, no tobacco. He is a resident at [facility]. ALLERGIES: Aprepitant and Fosaprepitant. HOME MEDICATIONS: Lasix 40 q.12, atorvastatin 10, BuSpar 20 t.i.d., Colace 100 b.i.d., Depakote 250 q. 4 times a day, Lexapro 20 daily, Pepcid 20 daily, Klonopin 0.5 t.i.d., promethazine p.r.n., Seroquel 100 at bedtime, Zanaflex 2 q.6. Zyrtec 5 daily, Flomax 0.4 daily, Levsin 0.125 q.6. [place] p.r.n. REVIEW OF SYSTEMS: Otherwise negative times a 10 point review of systems except as described in the HPI. PHYSICAL EXAMINATION: VITAL SIGNS: Blood pressure is 94/59, heart rate of 52, respiratory rate 13, temperature 98.6 degrees 100% saturation on room air. GENERAL: A thin male in no acute distress. HEENT: Head exam was normocephalic. Atraumatic. Eye exam: Pupils were equally round, reactive to light. Extraocular movements were intact. Ear, nose and throat exam, he had moist mucous membranes. Somewhat limited because of his kind of torticollis he has but he has a lot of or pharyngeal secretions, which sounds like it is more than usual. Sclera were somewhat injected. CARDIOVASCULAR: Regular rate and rhythm. PULMONARY: Bilateral breath sounds diminished at the bases. GASTROINTESTINAL: Abdomen was soft, nontender, nondistended. Bowel sounds are positive. EXTREMITIES: No clubbing or cyanosis. LYMPHATIC: Exam no peripheral edema. NEUROLOGICAL: Exam was nonfocal. LABORATORY DATA: White count 7, hemoglobin and hematocrit 9 and 31, platelets 205,000. BUN and creatinine of 56 and 4.8. Hqf-jkhgjztd-oo-count white blood cells and red blood cells in his urine with yeast. His chest x-ray, I think is clear or at least no big change. ASSESSMENT/PLAN: This is a 58-year-old gentleman who came from retirement with complaints of weakness and acute kidney injury. 1. Acute kidney injury, possible obstruction. He had these issues before. We will pursue renal CT scan versus dehydration. He has had poor p.o. intake. We will continue IV fluids. Check urine electrolytes. If not improved, we will get a renal consult and urology consult if there is obstruction. 2. Hypertension. Continue to monitor. Avoid nephrotoxic drugs. 3. Urinary tract infection. I do think he has a urinary tract infection based on the urinalysis with high white blood cells. We will continue Rocephin and Diflucan because he does have yeast and we will continue to monitor. 4. Bipolar disorder again appears to be stable. I am not entirely sure why he has such poor p.o. intake. We may need to get a GI evaluation to look in his stomach once he is stabilized a bit. Continue Protonix and pursue calorie count and monitor closely. cc: Arthur Pickering MD
[2019-05-30] MEDS ORDERED: TYLENOL PO PRN (19:19)
[2019-05-30] MEDS ORDERED: ZOFRAN IV PRN (19:19)
[2019-05-30] MEDS: NS 1,000 ML IV SCH (19:40)
[2019-05-30] MEDS ORDERED: DIFLUCAN 100 MG/NS 100 MG/50 ML IVPB IV SCH (20:00)
[2019-05-30] MEDS: COLACE PO SCH (20:08)
[2019-05-30 20:09] LABS: UR CREAT RANDOM 82.3 mg/dL (14-26); UR PROT RANDOM 121.3 mg/dL
[2019-05-30] MEDS: KLONOPIN PO SCH (20:11)
[2019-05-30] MEDS: NORCO-7.5 PO PRN (20:16)
[2019-05-30] MEDS: SEROQUEL PO SCH (20:26)
[2019-05-30] MEDS: LIPITOR PO SCH (20:26)
[2019-05-30] MEDS ORDERED: FLOMAX PO SCH (21:00)
[2019-05-31] MEDS: ZANAFLEX PO PRN (01:51)
[2019-05-31] MEDS: NORCO-7.5 PO PRN ×2 (01:51→08:37)
[2019-05-31] MEDS: NS 1,000 ML IV SCH ×2 (06:05→13:50)
[2019-05-31 07:52] LABS: BASO# 0.02 X1000 (0.0-0.2); BASO% 0.2 % (0.0-0.8); EOS# 0.82 X1000 (0.0-0.7); EOS% 9.3 % (0.0-10.0); HEMOGLOBIN 8.6 g/dL (14.0-18.0); IMM GRAN# 0.04 X1000 (0.0-0.04); IMM GRAN% 0.5 % (0.0-0.5); LYMPH# 0.88 X1000 (1.2-3.4); MCHC 30.7 g/dL (33-37); MCV 94.3 FL (81-99); MONO# 0.91 X1000 (0.11-0.59); MONO% 10.3 % (1.7-9.3); MPV 8.9 FL (7.4-10.4); NEUT# 6.13 X1000 (1.4-6.5); NEUT% 69.7 % (42.2-75.2); PLT 194 X1000 (130-400); RBC 2.97 XMIL (4.7-6.1); RDW 14.5 % (11.5-14.5)
[2019-05-31 08:19] LABS: ALBUMIN 2.6 g/dL (3.5-5.0); CALCIUM 8.6 mg/dL (8.8-10.2); CREATININE 3.6 mg/dL (0.7-1.2); PHOSPHORUS 3.5 mg/dL (2.7-4.5); POTASSIUM 4.8 mmol/L (3.5-5.1)
[2019-05-31] MEDS: KLONOPIN PO SCH ×3 (08:37→21:43)
[2019-05-31] MEDS: COLACE PO SCH ×2 (08:37→21:43)
[2019-05-31] MEDS: CLARITIN PO SCH (08:37)
[2019-05-31] MEDS: BUSPAR PO SCH ×3 (08:38→21:43)
[2019-05-31] MEDS: LEXAPRO PO SCH (08:38)
[2019-05-31] MEDS: 1/2 NS 1,000 ML IV SCH (17:18)
[2019-05-31] MEDS: ZITHROMAX PO SCH (17:20)
[2019-05-31] MEDS: ROCEPHIN 1 GM in NS 50 ML IV SCH (17:20)
--- NOTE | 2019-05-31 18:02 | PROGRESS NOTE ---
DATE: 05/31/2019 INTERVAL HISTORY: No acute events overnight. Mr. Sheehan is feeling slightly better than yesterday. He denies any chest pain or shortness of breath. However, he does say that he has been coughing with whitish yellowish expectoration since the last several days. He denies any nausea, vomiting, abdominal pain. He complains of poor appetite. He states he is able to empty out his bladder without any trouble. He states at home, he did have a fever with temperature of 101 degrees, He also had burning and dysuria and increased frequency of urination. VITALS: Temperature of 98.9 degrees, pulse 48, respiratory 22, blood pressure 103/66, saturating 98% room air. PHYSICAL EXAMINATION: General: Not in acute distress. Oral cavity is moist. He does have torticollis. Lungs: Air entry bilaterally equal. No wheeze, rhonchi, or crackles. Cardiovascular: S1, S2 normal. No murmur or gallop. He has a left-sided chest port. Back: I have not performed a back examination. Neurologic: He is alert and oriented x3. He is able to move both upper and lower extremity spontaneously. LABORATORY: Suggestive of no leukocytosis, normocytic anemia, normal platelet count 194,000, hemoglobin 8.6. He does have elevated chloride, low bicarbonate. He has improving BUN and creatinine. His sodium is 141 and I will consider changing his IV fluids. Microbiology: No positive data so far. IMAGING: No new imaging. ASSESSMENT AND PLAN: 1. Acute kidney injury. Differential includes poor oral intake versus urinary retention. He does have worsening left-sided hydronephrosis on the CT scan. However, it may take several weeks for it to get better. I will get postvoid residuals and accordingly I will consult Urology. Continue intravenous fluids and change it to 1/2 normal saline. 2. Acute cystitis with hematuria and bilateral lower lobe pneumonia based on symptoms. Continue intravenous ceftriaxone and add azithromycin. Follow up sputum culture and blood culture data. 3. Others. Continue atorvastatin for hyperlipidemia; buspirone, clonazepam, escitalopram, quetiapine, valproic acid for anxiety, depression and bipolar mood disorder; tizanidine for muscle spasm; tamsulosin for urinary retention. DISPOSITION: Continue monitor patient inside the hospital. Plan of care discussed with him. His questions have been answered. cc: Nish Vasquez MD
[2019-05-31] MEDS: FLOMAX PO SCH (21:43)
[2019-05-31] MEDS: LIPITOR PO SCH (21:43)
[2019-05-31] MEDS: DEPAKENE LIQUID PO SCH (21:44)
[2019-05-31] MEDS: SEROQUEL PO SCH (21:44)
[2019-06-01 00:07] LABS: URINE SOURCE CATH
[2019-06-01 00:42] LABS: BILIRUBIN URINE NEGATIVE (NEGATIVE); BLOOD URINE MODERATE (NEGATIVE); COLOR YELLOW; GLUCOSE URINE NEGATIVE (NEGATIVE); KETONE URINE NEGATIVE (NEGATIVE); LEUKOCYTES URINE LARGE (NEGATIVE); NITRITE URINE NEGATIVE (NEGATIVE); PROTEIN URINE 70 mg/dL (NEGATIVE); SP GRAVITY URINE 1.014; TURBIDITY URINE HAZY (CLEAR); UROBILINOGEN URINE NORMAL (NORMAL)
[2019-06-01 01:12] LABS: UR EPITHELIAL CELLS <10 /HPF (<10); URINE BACTERIA NEGATIVE /HPF; URINE CASTS NONE SEEN; URINE CRYSTALS NONE SEEN; URINE SMALL ROUND CELLS NONE SEEN; URINE WBC TNTC /HPF (<10); URINE YEAST PRESENT
--- NOTE | 2019-06-01 07:58 | EKG Report ---
Test Performed on : 06/01/2019 07:23:54 AM Test Reason : Follow up QTc Blood Pressure : / mmHG Vent. Rate : 081 BPM Atrial Rate : 081 BPM P-R Int : 294 ms QRS Dur : 114 ms QT Int : 360 ms P-R-T Axes : 065 -71 080 degrees QTc Int : 418 ms Sinus rhythm. with 1st degree AV block. Left anterior fascicular block Abnormal ECG When compared with ECG of 28-APR-2019 13:52, (Unconfirmed) No significant change was found Confirmed by Carmelo GONZALEZ, Oscar Barakat ([id number]) on 06/02/2019 7:30:06 AM
[2019-06-01 07:59] LABS: HEMATOCRIT 27.3 % (42.0-52.0); HEMOGLOBIN 8.5 g/dL (14.0-18.0); MCH 29.9 PG (27-31); MCHC 31.1 g/dL (33-37); MCV 96.1 FL (81-99); MPV 8.7 FL (7.4-10.4); RBC 2.84 XMIL (4.7-6.1); RDW 14.8 % (11.5-14.5); WBC 8.99 X1000 (4.8-10.8)
[2019-06-01 08:12] LABS: ALBUMIN 2.7 g/dL (3.5-5.0); CALCIUM 8.9 mg/dL (8.8-10.2); PHOSPHORUS 2.4 mg/dL (2.7-4.5); POTASSIUM 4.7 mmol/L (3.5-5.1)
[2019-06-01] MEDS: ZITHROMAX PO SCH (09:13)
[2019-06-01] MEDS: LEXAPRO PO SCH (09:13)
[2019-06-01] MEDS: CLARITIN PO SCH (09:14)
[2019-06-01] MEDS: KLONOPIN PO SCH ×3 (09:14→20:38)
[2019-06-01] MEDS: BUSPAR PO SCH ×3 (09:14→18:19)
[2019-06-01] MEDS: FLOMAX PO SCH ×2 (09:14→20:38)
[2019-06-01] MEDS: DEPAKENE LIQUID PO SCH ×4 (09:14→20:38)
[2019-06-01] MEDS: COLACE PO SCH ×2 (09:14→20:39)
--- NOTE | 2019-06-01 10:01 | CONSULTATION ---
DATE OF CONSULTATION: 06/01/2019 CHIEF COMPLAINT: 1. Left hydronephrosis. 2. Urinary retention. HISTORY OF PRESENT ILLNESS: Mr. Sheehan is a 58-year-old with a history of head and neck cancer, dementia, hyperlipidemia, hypertension, bipolar disorder, who presents in consultation regarding left hydronephrosis and urinary retention. The patient recently was admitted to the hospital in April when he developed acute kidney injury related to Bactrim use for a back abscess. Urology was consulted when renal ultrasound showed left hydronephrosis with indwelling catheter in place. He was taken to the operating room, where he underwent cystoscopy with bilateral retrograde pyelograms and diagnostic left ureteroscopy, which showed a narrow left ureter near the bladder, likely related to longstanding BPH and bladder outlet obstruction. He had left ureteral stent placed at that time. The patient's renal function improved down to 1.8, and was seen in the office and had his catheter removed. The patient was able to void spontaneously. However, at his facility, he was having fatigue and tiredness with decreased p.o. intake and was not acting himself. Lab work was drawn, which showed a creatinine that was elevated at 4.8, and he was sent to the emergency room for evaluation due to acute kidney injury. The patient has been having poor appetite, and not eating and drinking well. He said that he was trying to remain hydrated, and knows he has lost some weight. He denies any changes in bowel habits. Denies any fevers or chills. He was admitted to the hospital, and had a CT scan performed which showed a very distended bladder with no catheter present in the bladder, and evidence of left hydronephrosis with ureteral stent in place. The patient was having difficulty with emptying the bladder, and ultimately had a catheter inserted with over 2300 mL drained yesterday afternoon after placement. He says he feels better. He denies any nausea or vomiting this morning. The patient's renal function yesterday was 3.6. PAST MEDICAL HISTORY: 1. Squamous cell carcinoma of the larynx. 2. Dementia. 3. Hyperlipidemia. 4. Hypertension. 5. Bipolar. 6. BPH. 7. History of left hydronephrosis. PAST SURGICAL HISTORY: 1. Right knee arthroscopy. 2. Neck biopsy. 3. Incision and drainage of back. 4. Cystoscopy with bilateral retrograde pyelograms and left ureteral stent placement. ALLERGIES: 1. Aprepitant. 2. Fosaprepitant. MEDICATIONS: 1. Lasix 40 mg. 2. Atorvastatin 10 mg. 3. BuSpar 20 mg t.i.d. 4. Colace 100 mg b.i.d. 5. Depakote 250 mg 4 times daily. 6. Lexapro 20 mg daily. 7. Pepcid 20 mg daily. 8. Klonopin 0.5 mg t.i.d. 9. Promethazine. 10. Seroquel 100 mg. 11. Zanaflex. 12. Zyrtec. 13. Flomax. 14. Levsin. 15. [place]. FAMILY HISTORY: Denies family history of malignancies. SOCIAL HISTORY: Denies tobacco, alcohol, or illicit drug use. REVIEW OF SYSTEMS: A 12-point review of systems was performed with all pertinent positives and negatives in the HPI. PHYSICAL EXAMINATION: Vital Signs: Temperature 98.5 degrees, heart rate 79, blood pressure 120/70, oxygen saturation 95% on room air. General: No acute distress. Resting comfortably in bed. Alert and oriented x3. HEENT: Normocephalic, atraumatic. Pupils equal, round, reactive to light. Neck: Trachea is slightly distorted due to contractures of the neck and torticollis. Cardiovascular: Regular rate and rhythm. Pulmonary: Good respiratory effort without audible wheezing or rales. GI: Abdomen is soft, nontender, nondistended. : No suprapubic tenderness. No CVA tenderness. Urethral catheter in place, draining clear yellow urine. Normal phallus with orthotopic meatus. Bilateral testicles palpated without asymmetry. Extremities: Moving all extremities. Neurologic: Gross motor and sensory intact. LABORATORY DATA: White blood cell count 8.99, hemoglobin 8.5, hematocrit 27.3, platelets 182,000. Sodium 141, potassium 4.7, chloride 109, bicarb 22, BUN 33, creatinine 3.0, glucose 94. Phosphorus 2.4. Albumin 2.7. MICROBIOLOGY: Urine culture from 05/30/2019 without growth. IMAGING: CT scan renal stone search, images reviewed, which showed a very distended bladder leading to hydronephrosis of the left kidney, likely related to refluxing of urine. Stent looks in a relatively good position. The patient's bladder is holding on to greater than 700 mL it appears, which likely is putting back pressure on the kidney. The patient's prostate is mildly enlarged with thickening of the bladder itself, likely from long-term bladder outlet obstruction. ASSESSMENT AND PLAN: Mr. Sheehan is a 58-year-old who presented to Urology Clinic and had his catheter removed several weeks ago and is scheduled to have his stent removed this Thursday. The patient had worsening kidney values with creatinine elevated at 4.8 at his nursing facility, likely from incomplete emptying. The patient was on Flomax and had voided in the office. However, it sounds like he was having weakening stream at his facility, but never contacted the Urology office regarding this. The patient was admitted and had a catheter inserted yesterday when renal function had improved, and he had suprapubic pain and distention. On exam today, no evidence of distention. No suprapubic pain. The patient had a large amount of urine output yesterday from his catheter after being inserted yesterday afternoon. Renal function continues to downtrend at 3 from 3.6 yesterday. Will continue to monitor with indwelling catheter in place. I think the patient likely will have difficulty emptying his bladder. He does have some changes in the bladder itself, including trabeculation, cellules, and small diverticula, likely related from chronic bladder outlet obstruction. May have to consider urodynamics versus transurethral resection of prostate for assistance in outflow obstruction. I talked with him about that today. Will keep indwelling stent at this time, try to optimize renal function. Could consider repeating a renal ultrasound in several days to ensure that the hydronephrosis continues to improve. I think clinically, as long as renal function is improving, would hold off on repeating an ultrasound as the stent looks like it is in good position, and likely just refluxing urine from the bladder due to the distention of the bladder itself. Will continue to monitor from a urologic standpoint. Please call with questions or concerns. cc: Yimi Da Silva MD [id number]
[2019-06-01] MEDS: NORCO-7.5 PO PRN (13:13)
--- NOTE | 2019-06-01 14:08 | PROGRESS NOTE ---
DATE: 06/01/2019 INTERVAL HISTORY: No acute events overnight. SUBJECTIVE: Mr. Sheehan is feeling slightly better, though not completely better. Urology team had evaluated the patient. It was thought that his acute kidney injury was due to incomplete bladder emptying, and a Sanchez catheter was placed. Mr. Sheehan says he is still coughing. OBJECTIVE: Vital Signs: Temperature 98.1 degrees, pulse 70, respiratory rate 18, blood pressure 112/69, saturating 92% on room air. General: Not in acute distress. HEENT: Oral cavity is moist. Lungs: Air entry bilaterally antibiotic equal. No wheeze, rhonchi, crackles. He has a left-sided chest port. Heart: S1, S2 normal. No murmur or gallop. Abdomen: Soft, nontender. Extremities: No lower extremity edema. Neurologic: He is alert and oriented x3. LABORATORY DATA: Suggestive of normocytic anemia, normal platelet count, hemoglobin of 8.5, platelets 182,000. Improving BUN to 33, creatinine of 3. MICROBIOLOGY: No positive microbiological data so far. IMAGING: No new imaging. ASSESSMENT AND PLAN: 1. Acute kidney injury due to urinary retention with poor oral intake with worsening left-sided hydronephrosis on CT scan. His left ureteric stent appears to be in place. Urology team on board. He has been on a Sanchez catheter. I will continue half-normal saline at current rate. 2. Acute cystitis with hematuria and bilateral lower lobe pneumonia based on symptoms. Continue intravenous ceftriaxone and azithromycin. I counseled him about following up with repeat CT scan because of pulmonary opacities, to make sure he does not have any lung nodules or possible malignancy. 3. Others. Continue atorvastatin for hyperlipidemia; buspirone, clonazepam, escitalopram, quetiapine, valproic acid for anxiety, depression, and bipolar mood disorder; tizanidine for muscle spasm; tamsulosin for urinary retention. 4. Disposition. Continue to monitor the patient inside the hospital. Plan of care discussed with him. His questions have been answered. cc: Nish Vasquez MD
[2019-06-01] MEDS: 1/2 NS 1,000 ML IV SCH (18:19)
[2019-06-01] MEDS: ROCEPHIN 1 GM in NS 50 ML IV SCH (18:19)
[2019-06-01] MEDS: SEROQUEL PO SCH (20:38)
[2019-06-01] MEDS: LIPITOR PO SCH (20:39)
[2019-06-02] MEDS: CLARITIN PO SCH (08:36)
[2019-06-02] MEDS: LEXAPRO PO SCH (08:36)
[2019-06-02] MEDS: KLONOPIN PO SCH ×3 (08:36→21:43)
[2019-06-02] MEDS: BUSPAR PO SCH ×3 (08:36→17:08)
[2019-06-02] MEDS: FLOMAX PO SCH ×2 (08:37→21:43)
[2019-06-02] MEDS: ZITHROMAX PO SCH (08:37)
[2019-06-02] MEDS: COLACE PO SCH ×3 (08:37→21:43)
[2019-06-02] MEDS: DEPAKENE LIQUID PO SCH ×4 (08:37→21:43)
[2019-06-02 08:42] LABS: ALBUMIN 2.8 g/dL (3.5-5.0); CALCIUM 9.2 mg/dL (8.8-10.2); CREATININE 2.7 mg/dL (0.7-1.2); PHOSPHORUS 2.5 mg/dL (2.7-4.5); POTASSIUM 5.2 mmol/L (3.5-5.1)
[2019-06-02] MEDS: 1/2 NS 1,000 ML IV SCH (11:25)
[2019-06-02] MEDS: NORCO-7.5 PO PRN (13:48)
[2019-06-02] MEDS: DIFLUCAN 100 MG/NS 100 MG/50 ML IVPB IV SCH (13:50)
--- NOTE | 2019-06-02 14:37 | PROGRESS NOTE ---
DATE: 06/02/2019 INTERVAL HISTORY: No acute events overnight. SUBJECTIVE: Mr. Sheehan is feeling better day by day. He denies any complaints. We discussed about Streptococcus pneumoniae pneumonia. We discussed about my discussion with Urology, treating his fungus in the urine, keeping the urine catheter in. His power of environmental attorney and father at bedside. All of their questions have been answered. PHYSICAL EXAMINATION: Vitals Signs: Temperature 97.7 degrees, pulse 77, respiratory rate 18, blood pressure 126/82. He is saturating 94% to 95% percent on room air. General: On physical examination, not in acute distress. HEENT: Oral cavity is moist. Lungs: Air entry bilaterally equal. No wheeze, rhonchi, or crackles. Cardiovascular: S1, S2 normal. No murmur or gallop. Abdomen: Soft, nontender. He has a left-sided chest port. He has a urine catheter. Neurologic: He is alert and oriented x3. He has torticollis. Back abscess drainage site looks to be healing well. I could not express any discharge. LABS: Suggestive of no leukocytosis, no WBC today. BMP suggestive of potassium of 5.2, chloride of 109. He does have a BUN of 25, creatinine of 2.7, which has been slowly improving. Urine culture growing yeast. Blood culture has not shown any growth. Urine streptococcal antigen was positive. ASSESSMENT AND PLAN: 1. Acute kidney injury due to urinary retention with poor oral intake with worsening left-sided hydronephrosis on CT scan. His left ureteric stent appears to be in place. Urology team on board and recommends continuing the Sanchez catheter, as well as tamsulosin. I will continue half-normal saline at current rate and follow up with daily BMP. 2. Acute cystitis with hematuria and bilateral lower lobe pneumonia based on symptoms. His urine culture grew yeast, and my plan is to start him on fluconazole and continue intravenous ceftriaxone for Streptococcus pneumonia. I discontinued azithromycin. 3. Lung nodules, likely differential includes pneumonia versus malignancy considering prior history of head and neck cancer. I had a detailed discussion with the patient about following up with a repeat CT scan and having a discussion with regular physician about further workup. They understood it. 4. Others. Continue atorvastatin for hyperlipidemia; buspirone, clonazepam and citalopram, quetiapine and valproic acid for anxiety, depression, bipolar mood disorder; tizanidine for muscle spasms; tamsulosin for urinary retention. DISPOSITION: Continue to monitor the patient inside the hospital as I await improvement in kidney function. Based on that, I would anticipate discharge in next 24 hours or so. Plan of care discussed with the patient, and all of his questions have been answered satisfactorily. cc: Nish Vasquez MD MTDD
[2019-06-02] MEDS: ROCEPHIN 1 GM in NS 50 ML IV SCH (17:08)
[2019-06-02] MEDS: LIPITOR PO SCH (21:43)
[2019-06-02] MEDS: SEROQUEL PO SCH (21:43)
[2019-06-03] MEDS: 1/2 NS 1,000 ML IV SCH ×3 (06:34→17:58)
--- NOTE | 2019-06-03 07:34 | EKG Report ---
Test Performed on : 06/03/2019 07:09:42 AM Test Reason : Follow up QTc. Blood Pressure : / mmHG Vent. Rate : 062 BPM Atrial Rate : 062 BPM P-R Int : 312 ms QRS Dur : 114 ms QT Int : 392 ms P-R-T Axes : 046 -65 070 degrees QTc Int : 397 ms Sinus rhythm. with 1st degree AV block. Left anterior fascicular block Abnormal ECG When compared with ECG of 01-JUN-2019 07:23, No significant change was found Confirmed by Carmelo GONZALEZ, Oscar Barakat ([id number]) on 06/05/2019 9:24:22 AM
--- NOTE | 2019-06-03 07:53 | PROGRESS NOTE ---
DATE: 06/02/2019 SUBJECTIVE: No acute events overnight. The patient's catheter has been draining well with clear yellow urine. The patient remains afebrile. Denies any nausea or vomiting. Feels like overall he is doing well. Denies any flank or abdominal pain. OBJECTIVE: Vital Signs: Temperature 98.0 degrees, heart rate 76, blood pressure 112/81, oxygen saturation 95% on room air. General: No acute distress. Resting comfortably in bed. Alert and oriented x3. Respiratory: Good respiratory effort without audible wheezing or rales. Abdomen: Soft, nontender. : Urethral catheter in place draining clear yellow urine with no evidence of any clots. LABORATORY DATA: White blood cell count 8.99, hemoglobin 8.5, hematocrit 27.3. Sodium 142, potassium 5.2, chloride 109, bicarb 26, BUN 25, creatinine 2.7, glucose 133. ASSESSMENT/PLAN: Mr. Sheehan is seen in consult regarding urinary retention and left hydronephrosis. The patient's renal function has continued to improve. It is 2.7 today from 4.8 on admission. The stent appears to be in relatively good position. The patient's bladder was significantly distended on CT scan. We will keep indwelling catheter at this time to optimize his renal function. The patient ultimately will either need urodynamics to assess for obstruction or transurethral resection of prostate to alleviate obstruction. I would keep indwelling catheter in at this time and follow up in the outpatient setting. This was relayed to the patient. We will continue to monitor from urologic standpoint. Please call with questions or concerns. cc: MD KRISTIE Valdez
[2019-06-03 08:27] LABS: BASO# 0.03 X1000 (0.0-0.2); BASO% 0.4 % (0.0-0.8); EOS# 0.61 X1000 (0.0-0.7); EOS% 7.6 % (0.0-10.0); HEMATOCRIT 28.4 % (42.0-52.0); HEMOGLOBIN 8.6 g/dL (14.0-18.0); IMM GRAN# 0.03 X1000 (0.0-0.04); IMM GRAN% 0.4 % (0.0-0.5); LYMPH# 1.23 X1000 (1.2-3.4); LYMPH% 15.3 % (20.5-51.1); MCH 28.8 PG (27-31); MCHC 30.3 g/dL (33-37); MONO# 0.63 X1000 (0.11-0.59); MONO% 7.8 % (1.7-9.3); MPV 8.6 FL (7.4-10.4); NEUT# 5.51 X1000 (1.4-6.5); NEUT% 68.5 % (42.2-75.2); PLT 191 X1000 (130-400); RBC 2.99 XMIL (4.7-6.1); RDW 14.3 % (11.5-14.5); WBC 8.04 X1000 (4.8-10.8)
[2019-06-03] MEDS: LEXAPRO PO SCH (08:55)
[2019-06-03] MEDS: FLOMAX PO SCH ×2 (08:55→20:29)
[2019-06-03] MEDS: BUSPAR PO SCH ×3 (08:55→17:58)
[2019-06-03] MEDS: CLARITIN PO SCH (08:55)
[2019-06-03] MEDS: DEPAKENE LIQUID PO SCH ×4 (08:55→20:29)
[2019-06-03] MEDS: KLONOPIN PO SCH ×3 (08:56→20:29)
[2019-06-03] MEDS: COLACE PO SCH ×3 (08:56→20:29)
[2019-06-03 09:10] LABS: CREATININE 2.2 mg/dL (0.7-1.2)
[2019-06-03] MEDS: NORCO-7.5 PO PRN ×2 (12:43→20:29)
--- NOTE | 2019-06-03 15:00 | DISCHARGE SUMMARY ---
ADMISSION DATE: 05/30/2019 DISCHARGE DATE: 06/04/2019 DATE OF DISCHARGE: Likely 06/04/2019 DISCHARGE DISPOSITION: Rehab and then to penitentiary facility. DISCHARGE CONDITION: At the time of this dictation he is hemodynamically stable, alert, oriented x3. He is breathing well on room air. He denies any chest pain, shortness of breath. He has occasional cough. His kidney function has been improving. He is going with indwelling Sanchez. DISCHARGE DIAGNOSIS: 1. Acute kidney injury due to urinary retention. 2. Left-sided hydronephrosis. 3. Need for indwelling Sanchez catheter. 4. Acute cystitis due to yeast cystitis. 5. Bilateral lower lobe Streptococcus pneumonia. 6. Bilateral lung nodules differential being pneumonia versus malignancy needing repeat CT scan in 2 weeks. OTHER DIAGNOSES: 1. History of bipolar mood disorder. 2. History of chronic anemia. 3. History of urine retention . 4. Hyperlipidemia. DISCHARGE MEDICATIONS: Atorvastatin 10 mg at nighttime, buspirone 20 mg t.i.d., docusate 100 mg b.i.d., valproic acid 250 mg 4 times a day, famotidine 20 mg b.i.d., triamcinolone 15 g b.i.d. as needed for itching, Phenergan 12.5 mg every 4 hours as needed for nausea, vomiting, tizanidine 2 mg every 6 hours as needed for muscle spasm, levocetirizine 5 mg daily, tamsulosin 0.4 mg at nighttime, cefuroxime 500 mg every 12 hours for 4 days, fluconazole 100 mg daily for 7 days, clonazepam 0.5 mg t.i.d. 20 tablets have been prescribed, Levsin 0.125 mg every 6 hours as needed for abdominal cramps, [place] 7.5 one tablet every 6 hours as needed for pain 10 tablets have been prescribed, quetiapine 50 mg at nighttime. Please note that his quetiapine dose was decreased as well as his Lexapro was discontinued considering its interaction with fluconazole. Please get repeat EKG 3 days after discharge and monitor QTc. Please call program medical director if it is more than 500. VITALS: At the time of current dictation temperature 97.9 degrees, pulse 67, respiratory 18, blood pressure normal, saturating 94% room air. PHYSICAL EXAMINATION: Mr. Sheehan is not in any acute distress. Oral cavity is moist. Air entry bilateral equal. No wheeze or crackles. S1 normal, no murmur or gallop. Abdomen soft, nontender. No lower extremity edema. He was alert and oriented x3. He had a left-sided chest port. He has a urine catheter. The back abscess drainage site looked to be healing well. It should be dressed. LABS: At the time of dictation WBC 8000, hemoglobin 8.6, platelet 191,000. Sodium 142, potassium 5, BUN 20, creatinine 2.2 . Significant microbiology urine 2 of the urine culture growing yeast more than 100,000 colony forming units. IMAGING: On May [address] scan of his kidneys had probable urinary retention in the bladder which was likely responsible for worsened left hydronephrosis despite the presence of stent, bilateral lower lobe pulmonary opacities, the possibility of early cavitary lesions could not be excluded. Electrocardiogram on presentation had sinus rhythm with first-degree AV block, left anterior fascicular block, QTc of 418. Electrocardiogram on June 03 had QTc of 397. HOSPITAL COURSE SUMMARY: Mr. Sheehan is a 58-year-old man who was recently discharged from the hospital on 05/04/2019 came in with chief complaints of weakness and abnormal labs. Apparently he was initially admitted in late April with chief complaints of acute kidney injury and back abscess. He had required antibiotics and drainage of the back abscess and his acute kidney injury was thought to be related to urinary retention as well as stenosis of the distal ureter for which he required stent and he was discharged on Sanchez catheter. He had seen Urology outpatient after discharge and the Sanchez catheter was removed however patient was likely not able to void completely and he had progressive worsening weakness and so labs were drawn where he was found to have creatinine of more than 4 so he was admitted for further management. On presentation patient also complained of cough with whitish expectoration. CT scan of the kidneys performed had worsening left-sided hydronephrosis which was thought to be related to urinary retention, Sanchez catheter was reintroduced. He was started on intravenous fluid resuscitation and intravenous antibiotics. Urine streptococcal antigen was negative and his antibiotics were changed to intravenous ceftriaxone. He will be discharged on oral cefuroxime for Streptococcus pneumonia. He should have a followup CT scan 2 weeks after to make sure his pneumonia has resolved and to make sure there are no lung nodules that may require further investigation considering he did have prior history of head and neck cancer. His urine culture grow heavy growth of yeast and he was started on fluconazole. Considering drug interaction, his Lexapro was discontinued and Seroquel had been decreased and his QTc was within acceptable range. The time of discharge patient was advised and detailed discharge instructions were provided to him. His power of disability attorney was also provided detailed discharge instruction. FOLLOWUP: 1. CT scan within 2 weeks after discharge for following of lung Opacity. Script has been provided. 2. Outpatient Urology followup. 3. Outpatient General Surgery followup within 1 to 2 weeks for previously debrided back abscess. TIME SPENT: More than 30 minutes. cc: Nish Vasquez MD MTDMoody
[2019-06-03] MEDS: DIFLUCAN 100 MG/NS 100 MG/50 ML IVPB IV SCH (15:26)
--- NOTE | 2019-06-03 16:05 | PROGRESS NOTE ---
DATE: 06/03/2019 INTERVAL HISTORY: No acute events overnight. Mr. Sheehan is denying any chest pain, shortness of breath. His cough is getting better. He denies any nausea, vomiting. He had a bowel movement. VITALS: Temperature 97.9 degrees, pulse 67, respiratory 18, blood pressure 111/65, saturating 94% on room air. PHYSICAL EXAMINATION: Not in acute distress. Oral cavity is moist. Air entry bilaterally equal. No wheeze, rhonchi, crackles. Cardiovascular, S1, S2, normal. No murmur, rub or gallop. Abdomen soft, nontender. No lower extremity edema. He has torticollis. Back side abscess is dressed. He is alert and oriented x3. DATA: Labs suggestive of creatinine of 2.2, BUN 20, blood glucose 93. No new microbiological or imaging data. ASSESSMENT AND PLAN: 1. Acute kidney injury due to urinary retention. 2. Acute yeast cystitis. 3. Bilateral lower lobe Streptococcus pneumonia. 4. Lung nodules suspicious for pneumonia versus malignancy. 5. Prior history of head and neck cancer. PLAN: Continue intravenous fluids. Follow up with kidney function tomorrow. I will decrease his home Seroquel dose and cancel the Lexapro once considering about potential reaction with fluconazole. My plan is to potentially discharge him tomorrow. Plan of care discussed with him. He is in agreement. All of his questions have been answered. cc: Nish Vasquez MD
[2019-06-03] MEDS: ROCEPHIN 1 GM in NS 50 ML IV SCH (17:58)
[2019-06-03] MEDS: SEROQUEL PO SCH (20:29)
[2019-06-03] MEDS: LIPITOR PO SCH (20:29)
[2019-06-03] MEDS: MIRALAX PO SCH (20:30)
[2019-06-03] MEDS ORDERED: DULCOLAX PR SCH (21:00)
[2019-06-03] MEDS: ZANAFLEX PO PRN (22:55)
[2019-06-04] MEDS: 1/2 NS 1,000 ML IV SCH (05:52)
[2019-06-04 08:50] LABS: CALCIUM 9.1 mg/dL (8.8-10.2); CREATININE 2.1 mg/dL (0.7-1.2); POTASSIUM 5.1 mmol/L (3.5-5.1)
[2019-06-04 08:58] VITALS: BP 120/77
[2019-06-04] MEDS: FLOMAX PO SCH (09:27)
[2019-06-04] MEDS: LEXAPRO PO SCH (09:27)
[2019-06-04] MEDS: CLARITIN PO SCH (09:27)
[2019-06-04] MEDS: BUSPAR PO SCH ×2 (09:27→12:03)
[2019-06-04] MEDS: COLACE PO SCH (09:35)
[2019-06-04] MEDS: MIRALAX PO SCH (09:36)
[2019-06-04] MEDS: KLONOPIN PO SCH (09:41)
--- NOTE | 2019-06-04 09:48 | PROGRESS NOTE ---
DATE: 06/05/2019 INTERVAL HISTORY: No acute events overnight. SUBJECTIVE: Mr. Sheehan denies any complaints. His cough is getting better. He denies any shortness of breath, abdominal pain, nausea, or vomiting. Temperature 98 degrees, pulse 57, respiratory 18, blood pressure 120/77, saturating 93% on room air. PHYSICAL EXAMINATION: Not in acute distress.HEENT: Oral cavity is moist. Lungs: There was no wheeze or crackles. Heart: S1, S2 normal. No gallop. Abdomen: Soft, nontender. Extremities: No lower extremity edema. He has urine catheter which is draining clear urine. Input and output suggest 2.1 L urine yesterday. LABS: Suggestive of decreasing creatinine to 2.1, which is very close to his baseline creatinine. MICROBIOLOGY: No new data. No new imaging. ASSESSMENT AND PLAN: 1. Acute kidney injury due to urinary retention. 2. Worsening left-sided hydronephrosis due to urinary retention. 3. Acute cystitis due to yeast. 4. Bilateral lower lobe Streptococcus pneumonia. 5. Bilateral lung opacities suspicious for pneumonia versus lung nodules. Follow-up CT scan needs to be done 2 weeks after discharge outpatient. 6. Hyperlipidemia. 7. Bipolar mood disorder. PLAN: The patient will be discharged on oral fluconazole for yeast cystitis for a total of 7 more days. His Lexapro has been discontinued and his Seroquel dose has been decreased due to interaction with Fluconazole. He should also complete course of cefuroxime for pneumonia. Essentially outpatient Urology, General Surgery, and regular physician followup. He previously had a back abscess debridement from General Surgery in April 2020. DISPOSITION: Patient will be discharged to rehab with Sanchez catheter. cc: Nish Vasquez MD
[2019-06-04] MEDS: DEPAKENE LIQUID PO SCH ×2 (09:57→12:59)
[2019-06-04] MEDS: DIFLUCAN 100 MG/NS 100 MG/50 ML IVPB IV SCH (12:59)
--- NOTE | 2019-06-04 17:43 | EKG Report ---
Test Performed on : 06/04/2019 06:36:11 AM Test Reason : Follow up QTc. Blood Pressure : / mmHG Vent. Rate : 061 BPM Atrial Rate : 061 BPM P-R Int : 306 ms QRS Dur : 096 ms QT Int : 398 ms P-R-T Axes : 057 -67 067 degrees QTc Int : 400 ms Sinus rhythm. with 1st degree AV block. Left axis deviation Abnormal ECG When compared with ECG of 03-JUN-2019 07:09, (Unconfirmed) No significant change was found Confirmed by Carmelo GONZALEZ, Oscar Barakat ([id number]) on 06/05/2019 9:25:03 AM
== END 2019-06-04 13:00 | DRG 682 ==
LOC: SUPCPDRO → ED 12:56 → SUATTDRO 17:23 → EDIPHOLD 17:23 → 3N 22:09
PROVIDERS: ATTEND Internal Medicine

== ENCOUNTER 2019-06-14 13:45 | Inpatient (IN) ==
--- NOTE | 2019-06-14 14:24 | PROVIDER DOCUMENTATION ---
HPI-General Adult - General Chief Complaint: Abnormal Lab[s] Stated Complaint: ABNORMAL LABS Time Seen by Provider: 06/14/19 14:07 Source: patient Allergies/Adverse Reactions: Patient Allergies Allergy/AdvReac Type Severity Reaction Status Date / Time aprepitant [From Emend] Allergy Intermediate Unknown Verified 06/14/19 14:43 fosaprepitant [From Emend] Allergy Unknown Verified 06/14/19 14:43 Home Medications: Home Medication List Medication Instructions Recorded Confirmed Last Taken Type Atorvastatin Calcium 10 mg PO HS 04/28/19 06/14/19 06/13/19 History Buspirone [Buspar] 20 mg PO TID 04/28/19 06/14/19 06/14/19 History Docusate Sodium [Colace] 100 mg PO BID 04/28/19 06/14/19 06/14/19 History Famotidine 20 mg PO BID 04/28/19 06/14/19 06/14/19 History Levocetirizine Dihydrochloride 5 mg PO DAILY 04/28/19 06/14/19 06/14/19 History [Xyzal] Promethazine HCl 12.5 mg PO Q4H PRN PRN 04/28/19 06/14/19 05/25/19 10:20 History Tizanidine HCl 2 mg PO Q6H PRN PRN 04/28/19 06/14/19 06/13/19 History Triamcinolone 0.1% Cr [Kenalog 15 gm TOP BID PRN 04/28/19 06/14/19 06/04/19 History 0.1% Cream] Valproic Acid [Depakene Liquid] 250 mg PO 4XDAY 04/28/19 06/14/19 06/14/19 History Hyoscyamine [Levsin] 0.125 mg PO Q6H PRN PRN tab 05/04/19 06/14/19 06/10/19 Rx Tamsulosin [Flomax] 0.4 mg PO QHS cap 05/05/19 06/14/19 06/13/19 Rx CefUROXIME [Ceftin] 500 mg PO Q12HR #16 tab 06/03/19 06/14/19 06/14/19 Rx Clonazepam [Klonopin] 0.5 mg PO TID #20 tab 06/03/19 06/14/1920 Rx Fluconazole 100 mg PO DAILY #7 tab 06/03/19 06/14/19 06/13/19 Rx Hydrocodone/Acetaminophen [[place] 1 ea PO Q6H PRN PRN #10 tab 06/03/19 06/14/19 06/13/19 Rx 7.5-325 Tablet] Quetiapine Fumarate 1 tab PO HS #0 06/03/19 06/14/19 06/10/19 Rx Acetaminophen [Tylenol] 2 tab PO BID PRN 06/14/19 06/14/19 06/14/19 History - History of Present Illness -Gen Adult Nature of Presenting Problems: 58yo male presents from nursing faciltiy for abnormal labs. Patient with recent dx of kidney disease and stent placement reports that he had abnormal labs drawn this morning, and he is not sure which ones. He reports good urine output. He reports low back pain, but no fevers, no chest pain, no shortness of breath, no bleeding, and no swelling. Patient currently well appearing and non toxic. Location of Pain/Injury: reports: back (chronic), other (catheter site) Severity: reports: mild Onset/Duration: reports: other (acute on chronic for back and catheter site) Associated Symptoms: reports: back/neck pain, genitourinary problems. denies: chest pain, fever/chills, shortness of breath Review of Systems - Adult - REVIEW OF SYSTEMS - ADULT Constitutional: denies: fever Eyes: denies: eye pain Ears, Nose, Mouth & Throat: denies: ear pain Cardiovascular: denies: chest pain Respiratory: denies: shortness of breath Gastrointestinal: reports: abdominal pain Genitourinary: reports: other (low back pain, catheterization needed) Musculoskeletal: reports: back pain Integumentary: reports: no symptoms reported Neurological: reports: no symptoms reported. denies: headache/migraines Psychiatric: reports: no symptoms reported. denies: alcohol/drug dependence Endocrine: reports: no symptoms reported Hematologic/Lymphatic: reports: no symptoms reported, other (no bleeding) Allergic/Immunologic: reports: no symptoms reported, other (no swelling) Past History - Adult - PAST MEDICAL HISTORY-ADULT Review of Records: reports: Old Records Reviewed Cardiovascular: reports: denies history Respiratory: reports: denies history Gastrointestinal: reports: denies history Genitourinary: reports: kidney disease Neurological: reports: denies history Additional History: Head and neck cancer - PRIOR SURGERIES/PROCEDURES Surgical/Procedure History: reports: other (Head and neck cancer surgery) - IMMUNIZATION STATUS Childhood Immunizations: See Nurse Assessment Flu Vaccine: See Nurse Assessment - FAMILY HISTORY Family History: reviewed, not pertinent - SOCIAL HISTORY Smoking: denies Substance Use: none/never Alcohol Use Frequency: never Physical Exam-General - CONSTITUTIONAL General Appearance: appears well, alert, no apparent distress - EYES Eyes: pink conjunctivae. negative: conjuctival exudate, photophobia, scleral icterus, sunken eyes - HEAD, EARS, NOSE, MOUTH & THROAT HENMT: normocephalic/atraumatic, moist mucous membranes - NECK Neck: non-tender - RESPIRATORY Respiratory: normal breath sounds, no respiratory distress - CARDIOVASCULAR Cardiovascular: regular rate, rhythm, no edema - GASTROINTESTINAL (ABDOMEN) Abdominal Exam: soft, tenderness (mild in the lower abdomen). negative: guarding - MUSCULOSKELETAL Back Exam: no CVA tenderness, vertebral tenderness (midline lumbar) Extremity: non-tender, normal inspection. negative: deformity - SKIN Integumentary: normal color, warm/dry - NEUROLOGIC Neurologic: grossly normal - PSYCHIATRIC Psych/Mental Status: normal mood/affect, normal thought content, normal thought process Progress - PLAN OF CARE/RESULTS Result Diagrams: 06/14/19 14:53 06/14/19 14:53 Departure - Departure Date of Disposition Decision: 06/14/19 Time of Disposition Decision: 16:15 DIAGNOSIS: Obstructive uropathy, GILBERTO (acute kidney injury) UTI (urinary tract infection) Qualifiers: Urinary tract infection type: catheter-associated UTI Indwelling urinary catheter type: indwelling urethral catheter Encounter type: initial encounter Qualified Code(s): T83.511A - Infection and inflammatory reaction due to indwelling urethral catheter, initial encounter; N39.0 - Urinary tract infection, site not specified Disposition: ADMITTED INPATIENT 09 Certified Medical Emergency: Emergent Condition: Fair Referrals and Follow-Ups: Oscar Rhodes MD [Primary Care Provider] - - Critical Care Note This patient required my direct & personal management of CC.: No Attestation - Physician/ [place] Attestation Patient care was provided by Advanced Practice Provider:: No The physician spent face to face time with patient:: Yes Advanced Practice Provider documentation review:: Supervising physician onsite and consulted in the evaluation and care of this patient. The physician did have a face to face encounter with the patient.
[2019-06-14 15:18] LABS: URINE SOURCE CATH
[2019-06-14 15:20] LABS: BASO# 0.05 X1000 (0.0-0.2); BASO% 0.7 % (0.0-0.8); EOS# 0.25 X1000 (0.0-0.7); EOS% 3.5 % (0.0-10.0); HEMATOCRIT 29.3 % (42.0-52.0); LYMPH# 1.09 X1000 (1.2-3.4); LYMPH% 15.3 % (20.5-51.1); MCH 29.2 PG (27-31); MCHC 30.7 g/dL (33-37); MCV 95.1 FL (81-99); MONO# 0.43 X1000 (0.11-0.59); MPV 10.5 FL (7.4-10.4); NEUT# 5.29 X1000 (1.4-6.5); NEUT% 74.5 % (42.2-75.2); PLT 220 X1000 (130-400); RBC 3.08 XMIL (4.7-6.1); RDW 15.8 % (11.5-14.5); WBC 7.11 X1000 (4.8-10.8)
[2019-06-14 15:21] LABS: BILIRUBIN URINE NEGATIVE (NEGATIVE); BLOOD URINE MODERATE (NEGATIVE); COLOR ORANGE; GLUCOSE URINE NEGATIVE (NEGATIVE); KETONE URINE NEGATIVE (NEGATIVE); LEUKOCYTES URINE LARGE (NEGATIVE); NITRITE URINE NEGATIVE (NEGATIVE); PROTEIN URINE 300 mg/dL (NEGATIVE); SP GRAVITY URINE 1.021; TURBIDITY URINE TURBID (CLEAR); UROBILINOGEN URINE NORMAL (NORMAL)
[2019-06-14 15:23] LABS: UR EPITHELIAL CELLS <10 /HPF (<10); URINE BACTERIA NEGATIVE /HPF; URINE RBC TNTC /HPF (<10); URINE WBC TNTC /HPF (<10)
[2019-06-14 15:37] LABS: URINE YEAST NONE SEEN
[2019-06-14 15:44] LABS: ESTIMATED GFR 12
--- NOTE | 2019-06-14 16:01 | Diag Imaging Result Doc PS360 ---
EXAM: CT ABDOMEN/PELVIS W/O CONTRAST HISTORY: Ureter Disease and GILBERTO TECHNIQUE: CT abdomen and pelvis without oral or intravenous contrast COMPARISON: 05/30/2019 FINDINGS: There are nodular infiltrates in the lower lungs. These are less prominent than on the prior study. There is a small pericardial effusion. No calcified gallstones or adjacent inflammation. No focal hepatic abnormality identified on this noncontrasted exam. No splenomegaly. No inflammation about the pancreas. Normal adrenal glands. There is a left-sided ureteral stent. The ureter remains dilated. The urinary bladder is distended and has thickening of the wall. There is air within the urinary bladder. Normal aorta. No bowel obstruction. There is stool throughout the colon. No ascites. The balloon of the Sanchez catheter appears to be distended within the prostatic portion of the urethra. The Sanchez catheter does not appear to enter the urinary bladder. There is scoliosis with degenerative spine changes. IMPRESSION: 1.Interval improvement in the nodular basilar infiltrates 2.The Sanchez catheter does not appear to enter the urinary bladder. The balloon is inflated within the prostatic portion of the urethra. 3.Cystitis 4.Left ureteral stent 5.Constipation This exam was performed using automated exposure control, adjustment of mA or kV according to patient size, and/or use of iterative reconstruction technique. Electronically signed by Tony Mora 06/14/2019 3:59 PM
[2019-06-14 16:07] LABS: AGAP 12; ALB/GLOB RATIO 0.9; ALBUMIN 3.6 g/dL (3.5-5.0); ALKALINE PHOSPHATASE 78 U/L (32-122); BUN 49 mg/dL (8-22); CALCIUM 9.4 mg/dL (8.8-10.2); CHLORIDE 100 mmol/L (98-107); COSMO 285; CREATININE 4.9 mg/dL (0.7-1.2); GLUCOSE 134 mg/dL (70-104); GOT 8 U/L (10-34); GPT < 5 U/L (10-44); POTASSIUM 5.1 mmol/L (3.5-5.1); SODIUM 135 mmol/L (136-145); TCO2 23 mmol/L (25-35); TOTAL BILIRUBIN 0.21 mg/dL (0.20-1.00); TOTAL PROTEIN 7.6 g/dL (6.3-8.3)
[2019-06-14] MEDS ORDERED: ROCEPHIN 1 GM in NS 50 ML IV ONE (16:13)
[2019-06-14] MEDS ORDERED: ZOFRAN IV PRN (17:34)
[2019-06-14] MEDS ORDERED: LEVSIN PO PRN (17:34)
[2019-06-14] MEDS ORDERED: KENALOG 0.1% CREAM TOP PRN (17:34)
[2019-06-14] MEDS ORDERED: ZANAFLEX PO PRN (17:34)
[2019-06-14] MEDS ORDERED: TYLENOL PO PRN ×2 (17:34)
[2019-06-14] MEDS: DEPAKENE LIQUID PO SCH ×2 (18:20→22:23)
[2019-06-14] MEDS: KLONOPIN PO SCH (18:21)
[2019-06-14] MEDS: NORCO-7.5 PO PRN (18:21)
[2019-06-14] MEDS: NS 1,000 ML IV SCH (18:24)
[2019-06-14] MEDS: BUSPAR PO SCH ×2 (18:27→18:29)
--- NOTE | 2019-06-14 21:37 | HISTORY AND PHYSICAL ---
PRIMARY CARE PHYSICIAN: Oscar Rhodes MD CHIEF COMPLAINT: Abnormal labs per facility. HISTORY OF PRESENTING ILLNESS: This is a 58-year-old male who presents to [facility] via EMS after he had some labs drawn at [facility] that came back with an abnormal BUN and creatinine so he was sent to the emergency room for evaluation. Laboratory data did show a BUN of 49, creatinine 4.9. A CT of the abdomen and pelvis that showed a Sanchez catheter does not appear to be in the urinary bladder. The balloon was inflated in within the prostatic portion of the urethra and also noted cystitis. It is noted that he was discharged from the hospital on 06/03/2019 after he had an acute kidney injury due to urinary retention with left-sided hydronephrosis requiring need for indwelling Sanchez catheter. He had acute cystitis at that time due to a yeast cystitis and was discharged back to this facility with outpatient followup with Urology and General Surgery and was supposed to have a CT scan 2 weeks later after discharge to follow up for a lung opacity. His urinary catheter was removed, and a new indwelling urinary catheter was placed with immediate return of cloudy yellow urine, and he will be admitted for further evaluation and treatment. 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 PAST SURGICAL HISTORY: Right total knee arthroscopy, a neck biopsy and a recent abscess drained on his back. FAMILY HISTORY: Reviewed and noncontributory. SOCIAL HISTORY: Currently resides at [facility] and denies any tobacco, alcohol or illicit drug use. ALLERGIES: Aprepitant and fosaprepitant. HOME MEDICATIONS: Takes Tylenol 325 mg 2 tablets p.o. b.i.d. p.r.n., atorvastatin 10 mg p.o. at bedtime, BuSpar 20 mg p.o. t.i.d., Ceftin 500 mg p.o. q.12 hours will be held, Klonopin 0.5 mg p.o. t.i.d., Colace 100 mg p.o. b.i.d., famotidine 20 mg p.o. b.i.d., fluconazole 100 mg p.o. daily will be held, [place] 7.5 one p.o. q.6 hours p.r.n., hyoscyamine 0.125 mg p.o. q.6 hours p.r.n., levocetirizine 5 mg p.o. daily, promethazine 12.5 mg p.o. q.4 hours p.r.n. is being held and quetiapine 50 mg p.o. at bedtime, tamsulosin 0.4 mg p.o. at bedtime, tizanidine 2 mg p.o. q.6 hours p.r.n., Kenalog 15 g topically b.i.d. p.r.n. and Depakene liquid 250 mg p.o. 4 times daily. LABORATORY DATA: Showed a white blood cell count of 7.11, hemoglobin 9, hematocrit 29.3, platelets 220,000. Sodium 135, potassium 5.1, chloride 100, CO2 23, BUN of 49, creatinine 4.9, glucose 134. Urinalysis showed moderate blood, large leukocytes, negative bacteria, no yeast seen. DIAGNOSTIC DATA: Abdomen and pelvic CT showed interval improvement of the nodular basilar infiltrates. Sanchez catheter does not appear to be entering in the urinary bladder. The balloon is inflated within the prostatic portion of the urethra. Cystitis, left ureteral stent and constipation. REVIEW OF SYSTEMS: He denied any fever, chills, blurred vision, dizziness, chest pain, coughing, shortness of breath. Denied any abdominal pain. He did have some urinary Sanchez catheter pain but no nausea, vomiting, constipation, diarrhea. PHYSICAL EXAMINATION: VITAL SIGNS: On arrival, he had a temperature of 97.9 degrees, pulse 55, respirations 17, blood pressure 105/67, saturating 98% on room air. GENERAL: This is a 58-year-old male who is lying in the bed. Answers questions appropriately. HEENT: Normocephalic, atraumatic. Normal ENT exam. Exam is somewhat limited because of his torticollis and has some pharyngeal secretions. Eyes: Pupils are equal, round, and reactive to light and accommodation. Extraocular movements are intact. NECK: Normal inspection with torticollis, has a neck pillow in place to help with positioning. LUNGS: Clear to auscultation bilaterally with equal lung expansion. Chest wall movement. HEART: Regular rate and rhythm. No murmurs, rubs, or gallops. ABDOMEN: Soft, nontender, nondistended. Bowel sounds are present x4 quadrants. GENITOURINARY: Previous Sanchez catheter was removed, and a new Sanchez catheter was inserted using sterile technique with immediate return of cloudy urine. No hematuria noted. NEUROLOGICAL: The cranial nerves 2 through 12 appear grossly intact. ASSESSMENT: 1. Acute kidney injury secondary to possible obstruction. 2. Cystitis. 3. Hypertension history of. 4. Bipolar disorder, appears stable. PLAN: He has been admitted to the medical unit, placed on telemetry, regular diet. SCDs for DVT prophylaxis. Indwelling Sanchez catheter. We will place on Rocephin 1 gram IV q.24, normal saline at 125 mL an hour. Continue home medications as previously identified. Renal ultrasound in the a.m., and further orders after seen by attending, and we will recheck a CBC and BMP in the a.m. Dictated by DARIA Woodward for Nish Vasquez MD cc: DARIA Woodward MD Kirk L. Jackson, MD I agree with most components of history, physical ,assessment and plan. A separate addendum has been dictated. KRISTIE
[2019-06-14] MEDS: COLACE PO SCH (22:22)
[2019-06-14] MEDS: PEPCID PO SCH (22:23)
[2019-06-14] MEDS: LIPITOR PO SCH (22:23)
[2019-06-14] MEDS: SEROQUEL PO SCH (22:23)
[2019-06-14] MEDS: FLOMAX PO SCH (22:23)
[2019-06-15] MEDS: NORCO-7.5 PO PRN ×3 (01:01→18:18)
--- NOTE | 2019-06-15 01:18 | HISTORY AND PHYSICAL ---
ADDENDUM This is to history and physical dictated by nurse practitioner. I with most of her history, physical assessment and plan. In brief, Mr. Sheehan presented to the hospital because of normal labs. He has been in and out of hospital since last 4 to 6 weeks because of urinary tract infections, urinary retention leading to acute kidney injury. He was recently discharged on June 03. He had routine lab test done, which had suggested creatinine of 5, which had increased from creatinine of 2.1 at the time of discharge. It was decided to send him back to the hospital. SUBJECTIVE: General: Mr. Sheehan states he is feeling significantly better after his Sanchez catheter was changed in the emergency room. Vitals: Temperature 97.5 degrees, pulse 59, respiratory rate 16, blood pressure 105/61. He is saturating 98% room air. HEENT: Not in acute distress. Oral cavity is moist. Lungs: Air entry bilaterally equal. No wheeze, rhonchi, crackles. Cardiovascular: S1 normal. No murmur, rub, or gallop. Abdomen: Soft, nontender. Extremities: No lower extremity edema. He does have a urine catheter. LABS: Suggestive of WBC of 7000, hemoglobin 9, platelet 220,000. BUN is 49, creatinine of 4.9. He has a significant pyuria and hematuria. No positive microbiological data so far. Abdomen and pelvis CT on June 14 has interval improvement in nodular bibasilar infiltrate. The Sanchez catheter did not appear to be in the urine catheter. He also has cystitis, left ureteral stent and constipation. ASSESSMENT AND PLAN: 1. Acute kidney injury due to malposition of Sanchez catheter on chronic kidney disease stage 3. 2. Acute cystitis with pyuria. 3. Constipation. 4. Improving bilateral lower lobe Streptococcus pneumonia. 5. Left-sided hydronephrosis status post ureteric stent in the past. PLAN: I will hydrate him with intravenous fluid resuscitation. Follow up with frequent BMP. I will start him on stool softeners. I will also keep him on intravenous ceftriaxone until I follow up on final urine culture and sensitivity. I will consult Urology considering he has had issues with Sanchez catheter for further management. Plan of care discussed with Mr. Sheehan, his questions have been answered. cc: Nish Vasquez MD
[2019-06-15] MEDS: DULCOLAX PR SCH ×2 (03:08→10:11)
[2019-06-15] MEDS: NS 1,000 ML IV SCH ×2 (03:39→13:33)
[2019-06-15 07:28] LABS: BASO# 0.05 X1000 (0.0-0.2); BASO% 1.1 % (0.0-0.8); EOS# 0.64 X1000 (0.0-0.7); EOS% 14.5 % (0.0-10.0); HEMATOCRIT 26.7 % (42.0-52.0); HEMOGLOBIN 8.2 g/dL (14.0-18.0); LYMPH# 1.25 X1000 (1.2-3.4); LYMPH% 28.4 % (20.5-51.1); MCH 29.5 PG (27-31); MCHC 30.7 g/dL (33-37); MONO# 0.41 X1000 (0.11-0.59); MONO% 9.3 % (1.7-9.3); MPV 10.1 FL (7.4-10.4); NEUT# 2.05 X1000 (1.4-6.5); NEUT% 46.7 % (42.2-75.2); PLT 199 X1000 (130-400); RBC 2.78 XMIL (4.7-6.1); RDW 15.7 % (11.5-14.5)
[2019-06-15 07:59] LABS: CALCIUM 8.5 mg/dL (8.8-10.2); CREATININE 3.3 mg/dL (0.7-1.2); POTASSIUM 4.9 mmol/L (3.5-5.1)
--- NOTE | 2019-06-15 08:32 | Diag Imaging Result Doc PS360 ---
EXAM: CT THORAX W/O CONTRAST INDICATION: Follow up nodular lung infiltrate TECHNIQUE: This exam was performed using automated exposure control, adjustment of mA or kV according to patient size, and/or use of iterative reconstruction technique. COMPARISON: CT abdomen and pelvis dated two 03/09/[address] PET scan dated 03/02/2019 FINDINGS: There is a fine nodular infiltrate seen in the dependent portions of both lungs bilaterally, most significant in the lower lobes and at the lung bases bilaterally. However, there is some infiltrate at the posterior aspect of the right upper lobe as well. This was also seen at the lung bases on the recent prior abdominal CT. There are vague tree-in-bud opacities suggesting bronchiolitis. There is more dense confluent opacity at both lung bases as compared to yesterday's study. However, some of this is due to atelectasis that has worsened. These nodular infiltrates are probably a result of an atypical infectious process or chronic aspiration pneumonia. There is no pleural fluid collection and no pneumothorax. There is trace pericardial fluid. There is no cardiomegaly. There is no evidence of significant mediastinal or hilar lymphadenopathy. There is no evidence of acute osseous abnormality. IMPRESSION: Findings nodular infiltrates bilaterally with tree-in-bud opacities mainly at the dependent portions of the lungs bilaterally with the infiltrates being more dense and confluent at the lung bases as compared to yesterday's abdominal CT. However, some of this may be due to increasing atelectasis. Consider an atypical infectious process or chronic aspiration pneumonia. Electronically signed by Jude Rodriguez 06/15/2019 8:30 AM
[2019-06-15] MEDS: BUSPAR PO SCH ×3 (10:09→17:02)
[2019-06-15] MEDS: PEPCID PO SCH ×2 (10:09→22:47)
[2019-06-15] MEDS: COLACE PO SCH ×3 (10:09→22:48)
[2019-06-15] MEDS: DEPAKENE LIQUID PO SCH ×4 (10:09→22:48)
[2019-06-15] MEDS: ZYRTEC PO SCH (10:09)
[2019-06-15] MEDS: MIRALAX PO SCH (10:10)
[2019-06-15] MEDS: KLONOPIN PO SCH ×3 (10:17→17:01)
[2019-06-15] MEDS: ZOSYN 2.25 GM in NS 50 ML IV SCH (13:27)
[2019-06-15] MEDS ORDERED: LEVSIN-SL PO PRN (13:39)
[2019-06-15] MEDS ORDERED: ROCEPHIN 1 GM in NS 50 ML IV SCH (16:45)
--- NOTE | 2019-06-15 21:20 | PROGRESS NOTE ---
DATE: 06/15/2019 INTERVAL HISTORY: No acute events overnight. He underwent chest CAT scan as a follow-up of his previous infiltrate, which still suggested possible bilateral infiltrate. VITAL SIGNS: Temperature 98.1 degrees, pulse 60, respiratory 14, blood pressure 112/66. He is saturating 100% on room air. He denies any chest pain, shortness of breath. He is occasionally coughing. He denies nausea or vomiting. He had multiple bowel movements. His kidney function is improving. PHYSICAL EXAMINATION: He does have torticollis. Oral cavity is moist. Air entry bilaterally equal. No wheeze or crackles. S1 normal. No murmurs, rubs, or gallop. Abdomen soft, nontender. He has urine catheter. No lower extremity edema. He is alert and oriented x3. LABS: Suggestive of WBC of 4000, hemoglobin 8.2, platelet 199,000. He has improvement in BUN to 41, creatinine 3.3. Microbiology, urine culture is growing gram-positive cocci. IMAGING: Chest CT performed today morning suggests nodular infiltrates bilaterally with tree-in- bud opacities at the dependent portion of the lungs with infiltrates being more dense and confluent at the lung bases as compared to yesterday's abdomen CT. However, some of this may be due to interstitial atelectasis. This is likely atypical infectious process or chronic aspiration pneumonia. ASSESSMENT AND PLAN: 1. Acute kidney injury due to malposition of Sanchez catheter on chronic kidney disease stage 3, now improving. Continue intravenous fluid resuscitation and close monitoring of input and output. His Sanchez catheter was changed in the emergency room. Appreciate Nephrology recommendation. 2. Recurrent acute cystitis with pyuria with gram-positive cocci. I will keep him on intravenous Zosyn. Follow up final urine culture results. He only has 30,000 colony- forming units in the urine culture. 3. Constipation, now resolved. 4. Bilateral Streptococcus pneumonia with superimposed on bilateral chronic aspiration pneumonia. Keep him on intravenous Zosyn. I educated him about aspiration precautions. I will keep him on aspiration precautions. 5. Left-sided hydronephrosis status post ureteric stent in the past. Appreciate Urology recommendation. 6. Others. Continue atorvastatin for hyperlipidemia; buspirone, clonazepam, escitalopram, quetiapine, valproic acid for anxiety, depression, and bipolar mood disorder; tizanidine for muscle spasms; tamsulosin for urinary retention along with Sanchez catheter. DISPOSITION: I will monitor patient inside the hospital as I await normalization or improvement in kidney function. Further plan of care discussed with him. His questions have been answered. cc: Nish Vasquez MD MTDMoody
[2019-06-15] MEDS: SEROQUEL PO SCH (22:48)
[2019-06-15] MEDS: FLOMAX PO SCH (22:48)
[2019-06-15] MEDS: LIPITOR PO SCH (22:48)
[2019-06-16] MEDS: DULCOLAX PR SCH ×3 (01:22→22:06)
[2019-06-16] MEDS: NS 1,000 ML IV SCH ×2 (03:19→13:01)
[2019-06-16] MEDS: ZOSYN 2.25 GM in NS 50 ML IV SCH ×6 (04:23→22:05)
[2019-06-16 08:22] LABS: CALCIUM 8.6 mg/dL (8.8-10.2); CREATININE 2.4 mg/dL (0.7-1.2); POTASSIUM 5.4 mmol/L (3.5-5.1)
[2019-06-16] MEDS: BUSPAR PO SCH ×3 (09:09→17:49)
[2019-06-16] MEDS: DEPAKENE LIQUID PO SCH ×4 (09:09→22:05)
[2019-06-16] MEDS: ZYRTEC PO SCH (09:10)
[2019-06-16] MEDS: PEPCID PO SCH ×2 (09:10→22:05)
[2019-06-16] MEDS: NORCO-7.5 PO PRN ×2 (09:10→15:20)
[2019-06-16] MEDS: KLONOPIN PO SCH ×3 (09:11→17:48)
[2019-06-16] MEDS: COLACE PO SCH ×2 (09:12→22:06)
[2019-06-16] MEDS: MIRALAX PO SCH (09:12)
--- NOTE | 2019-06-16 09:14 | CONSULTATION ---
DATE OF CONSULTATION: 06/15/2019 CHIEF COMPLAINT: 1. Malfunctioning Sanchez catheter. 2. Acute kidney injury. 3. History of left hydronephrosis with ureteral stent. HISTORY OF PRESENT ILLNESS: Mr. Sheehan is a 58-year-old who is well known to Urology, who presented to [facility] Emergency Room yesterday when he was found to have abnormal blood work at [facility]. The patient had an elevated BUN, creatinine with a creatinine elevated at 4.9 and a BUN of 49. The patient was evaluated in the emergency room and CT scan was performed at that time, which showed a Sanchez catheter had been pulled down into the his urethra and was not draining with distention of the bladder. The patient was recently seen at the consult in May regarding acute kidney injury due to urinary retention and a catheter was inserted at that time, which had drained well, but it sounds like the catheter was pulled into his urethra leading to these symptoms. The patient's catheter was repositioned and he has done well. He denies any penile or scrotal pain. Denies any dysuria, hematuria, urgency, or frequency. The patient has a left ureteral stent in place and I have not been able to come back to the office to have it removed due to be the representing to the emergency room with acute kidney injury. CT scan images were reviewed which showed a distended bladder with catheter in the urethra and a small hydronephrosis likely consistent his urinary retention and relfux. PAST MEDICAL HISTORY: 1. Squamous cell carcinoma of the larynx. 2. Dementia. 3. Hyperlipidemia. 4. Hypertension. 5. Bipolar. 6. BPH. 7. History of left hydronephrosis. PAST SURGICAL HISTORY: 1. Right knee arthroscopic. 2. Biopsy. 3. Excision, drainage, back. 4. Cystoscopy and bilateral retrograde pyelograms with left ureteral stent placement. ALLERGIES: 1. Aprepitant. 2. Fosaprepitant. HOME MEDICATIONS: 1. Tylenol. 2. Atorvastatin 10 mg p.o. daily. 3. BuSpar 20 mg p.o. t.i.d. 4. Ceftin 50 mg p.o. q.12 hours. 5. Klonopin 0.5 mg t.i.d. 6. Colace 100 mg b.i.d. 7. Famotidine 20 mg p.o. daily. 8. Fluconazole 100 mg p.o. daily. 9. [place] 7.5/325 mg take 1 tablet q.6 hours as needed. 10. Levsin 0.25 mg. 11. Xyzal 5 mg p.o. daily. 12. Promethazine 12.5 mg p.o. q.4 hours. 13. Seroquel 1 tablet daily. 14. Flomax 0.4 mg. 15. Tizanidine 2 mg p.o. daily. 16. Valproic acid 250 mg. 17. Triamcinolone 0.1%. FAMILY HISTORY: Denies family history of malignancy. SOCIAL: Denies tobacco, alcohol or illicit drug use. REVIEW OF SYSTEMS: A 12-point review of systems performed with all pertinent positives negative as in HPI. PHYSICAL EXAMINATION: Vital signs: Temperature 98.1 degrees, heart rate 86, blood pressure 112/66, saturation 100% on room air. General: No acute distress. Resting comfortably in bed. Alert and oriented x3. Respiratory: Good respiratory effort without audible wheezing or rales. HEENT: Normocephalic, atraumatic. Pupils equal, round, reactive to light. Neck: Trachea is slightly distorted due to the patient's contractures and torticollis. Cardiovascular: Regular rate and rhythm. Abdomen: Soft, nontender, nondistended. : No suprapubic tenderness. No CVA tenderness. Urethral catheter in place draining clear yellow urine. Normal phallus with orthotopic meatus. Bilateral testicles palpated without masses or asymmetry. Musculoskeletal: Moving all extremities. Neurologic: Gross motor and sensory intact. SKIN: No obvious skin lesions or rashes. LABS: White blood cell count 4.4, hemoglobin 8.2, hematocrit 26.7, platelets 199,000. Sodium 138, potassium 4.9, chloride 106, bicarb 23, BUN 41, creatinine 3.3, glucose 107. IMAGING: CT and pelvis images reviewed, which showed a distended bladder with a stent in good position mild left hydronephrosis, likely related to distended bladder. Stent present within the kidney itself. The Sanchez balloon is seen within the prostate with a distended bladder with air present. ASSESSMENT AND PLAN: Mr. Sheehan is a 58-year-old with history of squamous cell of the bladder, dementia, hyperlipidemia, hypertension, bipolar, benign prostatic hyperplasia, and history of left hydronephrosis, who presents in consultation regarding malfunctioning Sanchez catheter, [place] and known history of left ureteral stent. The patient has been seen several times for acute kidney injury and urinary retention. I had recommend keeping indwelling catheter in place and performing urodynamics in the office prior to consideration of transurethral resection of prostate. However, patient's catheter seems to have been pulled into the urethra leading to urinary retention and pain. He states he was noticing some blood at that time. The patient's catheter was repositioned and his renal function is improving today. Creatinine today is 3.3. It was elevated at 5.3 on Thursday. The patient's baseline is approximately 2. The patient's catheter has been draining well with clear yellow urine. No significant pain. We will keep indwelling catheter in at this time. The patient states it seems to be in good position. Still recommend performing urodynamics in the office prior to proceeding with transurethral resection of prostate. The patient's prostate is enlarged and may benefit from surgical intervention; however, the patient has underlying neurologic changes and a very distorted bladder with small trabeculations and cellules, likely from chronic obstruction. Want to assess bladder function before proceeding with any transurethral procedure. If the patient continues with indwelling catheter, would increase his dose of Flomax to help with his retention. We will continue monitor from urologic standpoint. Please call with questions or concerns. cc: Yimi Da Silva MD MTDD
[2019-06-16] MEDS: MACROBID PO SCH ×2 (15:11→22:23)
--- NOTE | 2019-06-16 21:10 | PROGRESS NOTE ---
DATE: 06/16/2019 SUBJECTIVE: No acute events overnight. The patient states he has been doing well. His catheter has been draining clear yellow urine with over 2600 mL recorded yesterday. He denies any leakage around the catheter. Denies any flank or abdominal pain. PHYSICAL EXAMINATION: Vital Signs: Temperature 97.7 degrees, heart rate 57, blood pressure 130/57, oxygen saturation 96% on room air. General: No acute distress, resting comfortably in bed, alert and oriented x3. Respiratory: Good respiratory effort without audible wheezing or rales. Abdomen: Soft, nontender, nondistended. : No suprapubic tenderness. No CVA tenderness. Urethral catheter in place, draining clear yellow urine. LABORATORIES: White blood cell count 4.4, hemoglobin 8.2, hematocrit 26.7. Sodium 140, potassium 5.4, chloride 112. Bicarbonate 30, BUN 29, creatinine 2.4, glucose 108. PLAN: Mr. Sheehan is a 58-year-old who presents in consultation related to left hydronephrosis and malpositioned catheter. The patient was having pelvic pain and bleeding related to catheter insertion. The catheter was seen to be within the urethra on recent CT scan. This was repositioned. The patient's renal function has improved. Creatinine today was 2.4 from 3.3 yesterday. He has been making a large amount of urinary output. It was clear yellow. He denies any pelvic or flank pain. The patient has BPH as well as some degree of neurogenic bladder. I talked with him. I recommended urodynamics in the office and, if the patient is obstructed, would consider a transurethral resection of prostate to assist in symptoms. We will keep indwelling catheter until then. We will arrange for outpatient followup. cc: Yimi Da Silva MD MTDD
--- NOTE | 2019-06-16 21:16 | PROGRESS NOTE ---
DATE: 06/16/2019 INTERVAL HISTORY: No acute events overnight. SUBJECTIVE: Mr. Sheehan denies any new complaints. VITAL SIGNS: Temperature 97.7 degrees, pulse 57, respiratory 18, blood pressure 130/57, saturating 96% on room air. He has occasional nonproductive cough, not a lot. We discussed about aspiration precautions, not lying down for 2 hours after meal. He understood it. PHYSICAL EXAMINATION: Respiratory: Air entry bilaterally equal. No wheeze, rhonchi, or crackles. Heart: S1 normal. No murmur or gallop. Abdomen: Soft, nontender. Extremity: No edema. Neurologic: He is alert and oriented x3. Genitourinary: He has a urine catheter. LABS: No CBC today. BMP suggestive of potassium of 5.4, BUN 29, creatinine 2.4. MICROBIOLOGY: Urine culture growing Staphylococcus haemolyticus, but only 30,000 to 50,000 colony- forming units, which is sensitive to nitrofurantoin. ASSESSMENT AND PLAN: 1. Acute kidney injury, due to malposition of Sanchez catheter, on chronic kidney disease stage 3, now improving. Stop intravenous fluids. His Sanchez catheter has been changed. Urology team on board. I will start him on nitrofurantoin for acute cystitis, though the colony-forming unit is less than 50,000. He does have Staphylococcus haemolyticus in urine culture. 2. Bilateral Streptococcus pneumonia in the past, superimposed on bilateral chronic aspiration pneumonia. Continue intravenous Zosyn. I educated him on aspiration precautions. 3. Left-sided hydronephrosis, status post ureteric stent in the past. He would need outpatient Urology followup. 4. Other. Continue atorvastatin for hyperlipidemia; buspirone, clonazepam, escitalopram, quetiapine, valproic acid for anxiety, depression, and bipolar mood disorder; tizanidine for muscle spasm; tamsulosin for urinary retention. DISPOSITION: I am following up with BMP tomorrow. Based on that, planning discharge tomorrow. The patient is in agreement with the plan. cc: Nish Vasquez MD
[2019-06-16] MEDS: SEROQUEL PO SCH (22:05)
[2019-06-16] MEDS: LIPITOR PO SCH (22:05)
[2019-06-16] MEDS: FLOMAX PO SCH (22:05)
[2019-06-17] MEDS: ZOSYN 2.25 GM in NS 50 ML IV SCH ×2 (05:12→11:45)
[2019-06-17 08:53] LABS: CALCIUM 8.9 mg/dL (8.8-10.2); CREATININE 2.1 mg/dL (0.7-1.2); POTASSIUM 5.9 mmol/L (3.5-5.1)
[2019-06-17] MEDS: DEPAKENE LIQUID PO SCH ×2 (09:48→13:30)
[2019-06-17] MEDS: COLACE PO SCH (09:48)
[2019-06-17] MEDS: MACROBID PO SCH (09:48)
[2019-06-17] MEDS: BUSPAR PO SCH ×2 (09:48→13:30)
[2019-06-17] MEDS: KLONOPIN PO SCH ×2 (09:48→13:29)
[2019-06-17] MEDS: PEPCID PO SCH (09:49)
[2019-06-17] MEDS: DULCOLAX PR SCH (09:49)
[2019-06-17] MEDS: MIRALAX PO SCH (09:49)
[2019-06-17] MEDS: ZYRTEC PO SCH (09:49)
[2019-06-17] MEDS: NORCO-7.5 PO PRN (09:54)
[2019-06-17] MEDS ORDERED: ALBUTEROL 0.5% INH CONC FOR HYPERKALEMIA INH ONE (10:31)
[2019-06-17] MEDS ORDERED: HUMALOG IV ONE (10:31)
[2019-06-17] MEDS ORDERED: D50W SYRINGE IV ONE (10:31)
[2019-06-17] MEDS ORDERED: LACTULOSE PO ONE (10:32)
--- NOTE | 2019-06-17 13:05 | DISCHARGE SUMMARY ---
ADMISSION DATE: 06/14/2019 DISCHARGE DATE: 06/17/2019 DISCHARGE DISPOSITION: Back to correction facility. DISCHARGE CONDITION: Hemodynamically stable. His hyperkalemia is currently being treated. Mr. Sheehan denies any chest pain, shortness of breath, abdominal pain, nausea, or vomiting. DISCHARGE DIAGNOSES: 1. Acute kidney injury due to malpositioned Sanchez catheter leading to acute urinary retention. 2. Hyperkalemia in the setting of chronic kidney disease. 3. Recurrent bilateral aspiration pneumonia. OTHER DIAGNOSES: 1. Left-sided hydronephrosis status post ureteric stent in April of 2019. 2. Hyperlipidemia. 3. Anxiety and depression, and bipolar mood disorder. 4. Muscle spasm. 5. Torticollis following radiation for head and neck cancer in the past. 6. Recurrent urinary retention status post indwelling Sanchez catheter. 7. History of chronic anemia. 8. Acute Staphylococcus hemolyticus urinary tract infection. DISCHARGE MEDICATIONS: 1. Atorvastatin 10 mg at nighttime. 2. Buspirone 20 mg t.i.d. 3. Docusate 100 mg b.i.d. 4. Valproic acid 250 mg 4 times a day. 5. Famotidine 20 mg b.i.d. 6. Triamcinolone 15 g topical b.i.d. 7. Promethazine 12.5 mg every 4 hours as needed for nausea and vomiting. 8. Tizanidine 2 mg every 6 hours as needed for muscle spasm. 9. Tylenol 650 mg b.i.d. as needed. 10. Levocetirizine 5 mg daily. 11. Tamsulosin 0.4 mg at nighttime. 12. Dulcolax 10 mg per rectal b.i.d. 13. Clonazepam 0.5 mg t.i.d. 20 tablets have been prescribed. 14. Levsin 0.125 mg every 6 hours as needed for crampy pain. 15. Nitrofurantoin 100 mg b.i.d. for 5 days for urinary tract infection. 16. Stuart 7.5 every 6 hours as needed for pain 10 tablets have been prescribed. 17. Quetiapine 50 mg at nighttime. DISCHARGE EXAMINATION: VITALS SIGNS: At time of discharge, temperature 98 degrees, pulse 60, respiratory 18, blood pressure 128/69, and saturating 98% room air. General: Mr. Sheehan has torticollis. He is not in acute distress. HEENT: Oral cavity is moist. Lungs: Air entry bilaterally equal. No wheeze, rhonchi, or crackles. Heart: S1. S2 normal. No murmur or gallop. Abdomen: Soft and nontender. Extremities: No lower extremity edema. Pelvic: He does have a Sanchez catheter. Neurologic: He is alert and oriented x3. SIGNIFICANT LABORATORY: At the time of discharge, hemoglobin 8.2, potassium 5.9, BUN 27, and creatinine 2.1. His hyperkalemia is currently being treated with inhaled albuterol insulin D50, and repeat potassium is pending. MICROBIOLOGY: Urine culture growing Staphylococcus haemolyticus, which is sensitive to nitrofurantoin. SIGNIFICANT IMAGING DURING HOSPITAL ADMISSION: Abdomen and pelvis CT on 06/14 has interval improvement, and no jugular infiltrates. Sanchez catheter was not in the urinary bladder. Balloon was inflated in the prostatic portion of the urethra. He also had cystitis, left ureteral stent, and constipation. Chest CT on 06/15 had nodular infiltrates bilaterally with tree-in-bud opacities at the dependent portion of the lungs due to atelectasis. This was likely related to atypical infectious process or chronic aspiration pneumonia. HOSPITAL COURSE SUMMARY: Mr. Sheehan is a 58-year-old man with past medical history of recurrent urinary tract infection, urinary retention requiring indwelling Sanchez catheter, who came in with chief complaints of acute kidney injury. He had routine lab tests done in a correction facility after recent hospital discharge on 06/03 in which he was found to have creatinine of 5, which had increased from his baseline creatinine around 2 at the time of discharge so he was sent back to the hospital. In the emergency room, he was found to have a urine catheter displaced with the balloon being in the prostatic urethra. It was removed, and a new catheter was placed following which he suddenly experienced relief from suprapubic pain. He was started on intravenous fluid, and was admitted for further management. He was treated with intravenous fluids and intravenous antibiotics for recurrent acute cystitis with the urine culture growing Staphylococcus haemolyticus, and his antibiotics were changed to Macrobid. He should complete the outpatient course. Urology team was also consulted, who was planning to see Mr. Sheehan as an outpatient to perform further urodynamic studies to see if he would need a prostatic resection in the future considering his recurrent urinary retention. He was going to go to correction with indwelling Sanchez catheter. On previous admission, CT scan had suggested nodular bilateral infiltrates so a repeat CT scan was performed which had suggested that there was the presence of infiltrates in bilateral lung ruth, which were thought to be related to chronic aspiration pneumonia, and he received intravenous Zosyn. He will be discharged. He was advised about following up strict aspiration precaution and speech therapy were also advised for him. He received almost 72 hours of intravenous Zosyn while inside the hospital. He was also advised to have follow up with Dr. Arias for his back abscess which was debrided on previous admission. TIME SPENT: More than 30 minutes of time was spent discharging this patient. Plan of care was extensively discussed with the patient and all of his questions were answered. cc: Nish Vasquez MD
[2019-06-17 15:07] VITALS: BP 102/52
== END 2019-06-17 17:48 | DRG 698 ==
LOC: SUPCPDRO → ED 13:45 → 4N 17:13
PROVIDERS: ATTEND Internal Medicine